=== PATIENT | female | born 1950 | race Caucasian/White ===

== ENCOUNTER → 2019-12-20 14:56 | Outpatient (BNVA) | payer MEDICARE, OTHER, SELFPAY | PROVIDERS: Family Provider Internal Medicine; PCP Internal Medicine; Visit Provider Specialist | DX: M25.561 Pain in right knee (principal) | CPT/HCPCS: 73560; 73565 ==

== ENCOUNTER 2019-12-27 09:29 | Outpatient (CLI) | payer MEDICARE, OTHER, SELFPAY ==
--- NOTE | 2019-12-27 09:35 | MM_ITS ---
WS: [id number] BILATERAL DIGITAL SCREENING MAMMOGRAPHY WITH CAD CLINICAL INFORMATION: SCREENING HISTORY: Screening mammogram. No current complaints. COMPARISON: November 17, 2018 TECHNIQUE: Bilateral CC and MLO views. FINDINGS: Scattered fibroglandular densities bilaterally. No suspicious focal mass, asymmetry, calcifications, or architectural distortion. No evidence of malignancy. MM/[place] [id number] IMPRESSION: BI-RADS: 1-Negative FOLLOW UP: 1 Year Follow-up Recommend return to annual screening mammography.
== END 2019-12-27 09:30 | disposition home or self-care (01) ==
LOC: RADSHAW 09:34
PROVIDERS: PCP Internal Medicine; Visit Provider Internal Medicine
DX: Z12.31 Encounter for screening mammogram for malignant neoplasm of breast (principal)
CPT/HCPCS: 77067

== ENCOUNTER 2020-06-17 13:16 | Outpatient (CLI) | payer MEDICARE, OTHER, SELFPAY ==
--- NOTE | 2020-06-17 13:37 | XR_ITS ---
WS: [id number] Exam: XR lumbar spine 2-3V* [id number] Date/Time of Exam: 06/17/2020 1:37 PM Reason For Exam: BACK PAIN W/RADICULOPATHY Comparison 05/09/2018. There is interbody fusion of the spine from L2 to L4 with pedicle screws and posterior rods. Decompre ssion laminectomy at these levels. The fusion is ossified and stable in appearance. No sign of hardwa re failure. There is mild anterolisthesis of L3 on L4 and L2 on L3. Degenerative disc changes at all levels. Facet DJD at all levels. Levoscoliosis. Osteopenia. XR/XR lumbar spine 2-3V* [id number] IMPRESSION: 1. Interbody fusion from L2 to L4 which is ossified. No sign of hardware failur e. 2. No acute fracture. 3. Advanced degenerative disc changes and facet DJD at all levels. Levoscoliosi s. 4. Mild degenerative anterolisthesis of L2 on L3 and L3 on L4.
== END 2020-06-17 13:17 | disposition home or self-care (01) ==
PROVIDERS: PCP Internal Medicine; Visit Provider Internal Medicine
DX: M54.10 Radiculopathy, site unspecified (principal); M54.9 Dorsalgia, unspecified; Z98.1 Arthrodesis status; M47.896 Other spondylosis, lumbar region; M85.88 Other specified disorders of bone density and structure, other site; M41.80 Other forms of scoliosis, site unspecified
CPT/HCPCS: 72100

== ENCOUNTER 2020-07-09 09:14 | Outpatient (CLI) | payer MEDICARE, OTHER, SELFPAY ==
--- NOTE | 2020-07-09 09:30 | MR_ITS ---
WS: [id number] MRI LUMBAR SPINE NONCONTRAST HISTORY: M51.36 - Other intervertebral disc degeneration, lumbar region COMPARISON: 02/17/2018 TECHNIQUE: Sagittal and axial multisequence imaging is submitted. Thoracolumbar scoliosis with marked increase in the thoracic kyphosis. No cord compression. Mild curvature the lumbar spine to the LEFT. Prior posterior fusion hardware extends from L2 to L4. L 3 anterolisthesis by 7.4 mm. Moderate disc space narrowing throughout the entire lumbar spine. Small amount of reactive marrow eric ma at L2 and L3. No fractures are identified. Conus terminates normally at L1. L1-L2: New since the prior examination is an extruded disc extending cephalad from the disc level to the LEFT of midline. There is encroachment along the LEFT lateral thecal sac into the lateral recess. There is mild deformity of the LEFT lateral thecal sac with stenosis, associated marked facet and li gamentum flavum hypertrophy at this level. Fluid in the facet joints. There is moderate central and b ilateral foraminal stenosis which has progressed since the prior studies. Extruded disc is causing ad ditional deformity of the LEFT lateral thecal sac behind the L1 vertebral body. L2-L3: Large posterior laminectomy defect. No severe stenosis. L3-L4: Large posterior laminectomy defects. Thecal sac is being deformed with mild encroachment of th e RIGHT subarticular recess. Mild RIGHT foraminal stenosis. L4-L5: Bilateral facet joint arthritis, LEFT greater than RIGHT. No central stenosis. Mild LEFT kimberley inal narrowing. L5-S1: Mild annular disc bulging and osteophytic ridging. Mild narrowing of the foramen. MR/MR lumbar spine wo con* [id number] IMPRESSION: 1. Patient is status post posterior lumbar fusion from L2 to L4 with large jaquez inectomy defects at L2-3 and L3-4. 2. New moderate size extruded disc at L1-2 extend cephalad into the LEFT later al recess. There are additional degenerative changes of facet joint arthritis a nd disc disease at the L1-2 level resulting in moderate central and bilateral f oraminal stenosis. Additional encroachment by the extruded disc extending into the LEFT superior articular recess. 3. Mild RIGHT foraminal stenosis at L3-4 and LEFT at L4-5.
== END 2020-07-09 09:15 | disposition home or self-care (01) ==
LOC: RADSHAW 09:18
PROVIDERS: PCP Internal Medicine; Visit Provider Orthopaedic Surgery
DX: M51.36 Other intervertebral disc degeneration, lumbar region (principal); M48.061 Spinal stenosis, lumbar region without neurogenic claudication; M51.26 Other intervertebral disc displacement, lumbar region
CPT/HCPCS: 72148

== ENCOUNTER → 2020-08-08 10:05 | Outpatient (BNVA) | payer MEDICARE, OTHER, SELFPAY | PROVIDERS: PCP Internal Medicine; Visit Provider Orthopaedic Surgery | DX: Z01.812 Encounter for preprocedural laboratory examination (principal) | CPT/HCPCS: 87635 ==

== ENCOUNTER 2020-08-12 15:43 | Inpatient (IN) | payer MEDICARE, OTHER, SELFPAY ==
[2020-08-08 10:37] VITALS: BMI 28.8
--- NOTE | 2020-08-08 10:47 | ECG_ITS ---
[facility] Test Date: 2020-08-08 Pat Name: Inna Mohr Department: Room: Gender: Female Podiatrist Orthopedic: : 1950 Requested By: Beatrice Reece Order Number: [id number] Reading MD: NANCI NIETO Measurements Intervals [place] Rate: 104 P: 58 MA: 155 QRS: 48 QRSD: 86 T: 23 QT: 327 QTc: 432 Interpretive Statements SINUS TACHYCARDIA NONSPECIFIC T-WAVE ABNORMALITY ABNORMAL RHYTHM ECG Compared to ECG 03/25/2018 09:47:37 T-wave abnormality now present Sinus rhythm no longer present Sinus arrhythmia no longer present Electronically Signed On 08-08-2020 18:19:36 IP COUNSEL by NANCI NIETO [id number]
--- NOTE | 2020-08-08 11:08 | ANES.PREANE2 ---
Pre-Anesthetic Assessment Pre-Anesthetic Assessment: Height/Weight: Height 1.73 m Weight 86.183 kg Preop Diagnosis: back pain Proposed Procedure: Operation Date: 08/12/20 09:55 Proposed Procedures p L2 ?S1 PSF lumbar pelvic fixation revision L3/4 decompression PLIF L4/5 L5/S1 92850,45744,18197,26649,40745,11013,30794, 08832, 28279, 27502, 73508, 38022, M48.061(Not Applicable) - Marcello Wesley, DO Familial anesthetic complications: PONV - scopolamine patch morning of surgery Social: Social History: No alcohol and No tobacco Exam: Pre-Anes Outpt Exam: alert, oriented x 3, clear to auscultation bilaterally and regular rate & rhythm Airway: Cervical ROM: WNL MP: 2 Dentition: False Pulmonary: Pulmonary: COPD and CLEMENTE (CLEMENTE on extreme exertion - will use her inaler) CV/HEM: CV/HEM: HTN GI: GI: GERD Metabolic: Metabolic: DM and Hyperlipidemia Musc/skel: Musc/skel: Lower Back Pain Anesthetic Plan: ASA status: 3 Anesthesia: General Risk of > 500 ml blood loss (7ml/kg in children): Yes, adequate IV access and fluids planned PFSH Anesthesia PFSH: Medical History Accelerated essential hypertension Diabetes Gastroesophageal reflux High cholesterol History of revision of total replacement of left knee joint Surgical History H/O: hysterectomy History of back surgery History of carpal tunnel surgery of left wrist History of carpal tunnel surgery of right wrist History of total left knee replacement History of total right knee replacement Hx of repair of rotator cuff Family History Mother Diabetes Hypertension CAD (coronary artery disease) Grandmother Stroke Social History Smoking and tobacco status: never smoked Alcohol intake: never Data Anesthesia Cardiac Studies: No Data to Display
[2020-08-08 11:41] LABS: Anion Gap 16.3 (5-19); Blood Urea Nitrogen 16 mg/dL (8-23); Calcium 10.1 mg/dL (8.5-10.5); Carbon Dioxide 23 mmol/L (22-29); Chloride 104 mmol/L (98-107); Glomerular Filtration Rate 122.3 mL/min (90-130); Glucose 138 mg/dL (65-115); Osmolality Calculated 291 mOsm/kg (285-295); Potassium 4.3 mmol/L (3.5-5.1); Sodium 139 mmol/L (136-145)
[2020-08-09 19:45] VITALS: BP 99/66; PULSE 105; RESP 15; TEMP 36.5; O2SAT 98
[2020-08-10 22:45] VITALS: BP 115/70; PULSE 107; RESP 18; TEMP 36.7; O2SAT 99
[2020-08-12] VITALS (29 sets, daily range): BP systolic 83–147; BP diastolic 46–87; PULSE 98–130; RESP 12–22; TEMP 36.4–37.2; O2SAT 95–100
--- NOTE | 2020-08-12 | XR_ITS ---
WS: [id number] Exam: XR lumbar spine 2-3V* [id number] Date/Time of Exam: 08/12/2020 12:00 AM Reason For Exam: L2-S1 PSF lumbar pelvic fixation revision l3/l4 Comparison 03/28/2018. AP and lateral C-arm images of the lumbar and upper sacral spine are submitted for evaluation. There are Ramon rods and pedicle screws extending from T11 to S1. Screws also bridge both sacroi liac joints. There are disc spacers at L4-5 and L5-S1. Dextroscoliosis. No sign of the hardware failu re or obvious malposition. Multilevel laminectomy from L3 to S1.
[2020-08-12 06:15] LABS: Glucose Point of Care 142 mg/dL (70-110)
[2020-08-12] MEDS: sodium chloride 0.9% 1,000 ML 30 ML IV (06:16)
[2020-08-12] MEDS: scopolamine 1.5 Patch 1 PATCH TRANSDERMA (06:16)
--- NOTE | 2020-08-12 06:54 | P.ANESUD_ITS ---
Pre-Anesthetic Update Pre-Anesthetic Assessment: Date of Surgery/Procedure: 08/12/20 Preop Joycelyn gnosis: Lumbar stenosis, flat back syndrome Proposed Procedure: Operation Date: 08/12/20 08:30 Proposed Procedures p L2 ?S1 PSF lumbar pelvic fixation revision L3/4 decompression PLIF L4/5 L5/S1 10512,50811,70317,43483,99457,37761,76829, 49551, 24272, 22833, 96781, 61235, M48.061(Not Applicable) - Marcello Wesley, DO Any changes to Pre-Anesthetic Assessment?: No Last Intake: Intake Last Liquid Date 08/11/20 Last Liquid Time 23:00 Last Solid Date 08/11/20 Last Solid Time 18:00 Labs Last 48hrs: Laboratory Results - last 48 hr 08/12/20 06:12 POC Glucose 142 H Vitals: Temperature 97.5 F L 08/12/20 06:03 Temperature Source Temporal Artery S can 08/12/20 06:03 Pulse Rate 98 08/12/20 06:03 Pulse Rhythm 08/12/20 06:03 Pulse Strength 3+ Normal 08/12/20 06:03 Respiratory Rate 18 08/12/20 06:03 Blood Pressure 147/87 08/12/20 06:03 Blood Pressure Anita n 107 08/12/20 06:03 Pulse Oximetry 97 08/12/20 06:03 Oxygen Delivery Me thod 08/12/20 06:03 Exam: Pre-Anes Outpt Exam: alert, oriented x 3, clear to auscultation bilaterally and regular rate & rhythm Cardiac Studies: No Data to Display
--- NOTE | 2020-08-12 07:02 | W.PM.OPSUD ---
Surgery/Procedure H&P Update DATE OF PROCEDURE: August 12, 2020 DATE H&P PERFORMED: 07/16/20 H&P UPDATE INFORMATION: I have reviewed H&P completed within last 30 days, I have examined patient prior to procedure and No changes to prior documentation PREOP DIAGNOSIS: Lumbar stenosis, flat back syndrome PLANNED PROCEDURE: Operation Date: 08/12/20 08:30 Proposed Procedures p L2 ?S1 PSF lumbar pelvic fixation revision L3/4 decompression PLIF L4/5 L5/S1 61300,64839,44912,09610,21497,06711,72406, 95278, 62798, 41789, 23240, 69651, M48.061(Not Applicable) - Marcello Wesley, DO
[2020-08-12] MEDS: heparin, porcine 1,000 unit/mL INJ 10 mL 10000 UNIT IRRIGATION (10:00)
[2020-08-12] MEDS: vancomycin 1,000 MG SDV 1000 MG XX (10:01)
[2020-08-12 12:09] LABS: Hematocrit 33.8 % (37.0-47.0)
[2020-08-12] MEDS: thrombin 5,000 unit SDV 5000 UNIT XX (13:29)
[2020-08-12 14:13] LABS: Hematocrit 29.1 % (37.0-47.0); Mean Corpuscular HGB Conc 30.9 g/dL (30.0-36.0); Mean Corpuscular Hemoglobin 28.7 pg (28.0-34.0); Mean Corpuscular Volume 92.7 fL (81-99); Mean Platelet Volume 8.8 fL (7.4-10.4); Platelet Count 236 10^3/cmm (130-400); Red Blood Count 3.14 10^6/uL (4.1-5.3); Red Cell Distribution Width 14.3 % (12.1-15.1); White Blood Count 22.7 10^3/uL (4.0-10.0)
--- NOTE | 2020-08-12 14:33 | SCC_ITS ---
Procedure Done: 1. E96-Dsdjrm instrumentation (8 levels plus attachment to the pelvis) 2. T11- pelvis instrumentation 3. L4/5 interbody fusion with posterolateral fusion 4. L4/5 Cage 5. L5/S1 interbody fusion with posterolateral fusion 6. L5/S1 Cage 7. Revison Laminecomy L3/4 with bilateral partial facetectomies 8. Removal of deep hardware from the spine 9. use of autograph from same incision 10. allograft 11. Bone marrow aspirate from iliac crest through sepaarate incision in fascia 188.6 seconds of fluoroscopic guidance, for a cumulative dose of 110.33 mGy, was provided to Dr. Wesley - by the radiology department. C-arm images of the lumbar were saved for the patient's permanent record. ANJELICA
[2020-08-12 14:46] LABS: Absolute Segmented Neutrophil 18.2 10/cmm (1.6-7.1); Band Neutrophils Absolute 1.6 10^3/cmm (0.0-1.2); Basophils Absolute 0.2 10^3/cmm (0.0-0.2); Lymphocytes 12 %; Segmented Neutrophils 80 %; Total Cells Counted 100 (0-100)
[2020-08-12 14:47] LABS: Absolute Neutrophil 19.7 10^3/cmm (1.4-6.5); Eosinophils 0 %; Platelet Estimate Normal (Normal)
--- NOTE | 2020-08-12 15:47 | PM.OP ---
Operative Report Date of procedure: August 12, 2020 Pre-op Diagnosis: Lumbar stenosis, flat back syndrome Post-op diagnosis: same Procedure Done: 1. Y68-Hlhrgc instrumentation (8 levels plus attachment to the pelvis) 2. T11- pelvis instrumentation 3. L4/5 interbody fusion with posterolateral fusion 4. L4/5 Cage 5. L5/S1 interbody fusion with posterolateral fusion 6. L5/S1 Cage 7. Revison Laminecomy L3/4 with bilateral partial facetectomies 8. Removal of deep hardware from the spine 9. use of autograph from same incision 10. allograft 11. Bone marrow aspirate from iliac crest through sepaarate incision in fascia Surgeon: Marcello Wesley Anesthesia: General Estimated blood loss (mL): 2,000 IV fluids (mL): 3,500 Urine output (mL): 550 Condition: stable Disposition: PACU Procedure: Patient is brought to the operative suite. After undergoing anesthesia, the patient had neuro monitoring attached. Patient was then placed in the prone position on the Kimani table. All areas of impingement were well-padded. Patient was then prepped and draped in the normal sterile fashion. Skin incision was then made over the T11-S1 disc space. Subperiosteal dissection was made out to the transverse processes of T11- S2 and out over the sacral ala and pelvis. Once the exposure was complete attention was then brought to placing the pedicle screws. Prior to placing the pedicle screws the [employer] bone marrow aspirate kit was used to aspirate bone marrow aspirate. This was done by making an incision in the fascia on the right side. using the sharp probe to open up the bone. Aspiration was performed and then the blunt probe was then used to dissect down to through the bone tunnel. An aspirating well drawn back a millimeter approximately 20 cc of bone marrow aspirate was used. Ad mixed with the allograft and autograft bone that will be used. Prior to placing new pedicle screws old hardware was removed. This was done by dissecting out the screw heads of the screws as well as the cross-link. Symptoms were removed first. Followed by the end caps. Rods were then removed bilaterally. And then the screws were backed out. The L4 pedicle screw on the left was lateral. Gearshift was used to redirect the screw. And these screw holes were all filled with 6 5 Froid screws. This was done at L2-L3 and L4 bilaterally and again the screw on the left was redirected. The remaining screws were done with the following technique: the technique for placing the pedicle screws was to use a drill followed by the gearshift probe. Followed by the ball probe to feel the superior inferior medial lateral loredo of the pedicles. Then placement of the screws. Was done at each pedicle. Screws were placed at T11 bilaterally and s1 bilaterally. Iliac screws were placed into the pelvis. This was done with a sacral ala iliac approach. The gearshift was used initially and passed through the column in the iliac crest. This was confirmed under C-arm guidance using the teardrop view. As well as inlet outlet views to confirm that the screw was in bone. These were 80 x 9.5 screws. The instrumentation was from T11 down to S1 with iliac screws placed into the pelvis. Next attention was brought to performing the laminectomy of L4. This was done using the high-speed bur Kerrisons and curettes. Once the lamina was removed and then attention was brought to performing a partial facetectomy on the contralateral side. This was done again using the high-speed bur curettes and Kerrisons. The ligamentum flavum was taken down bilaterally from L4 to L5. Attention was then brought to the facet on the ipsilateral side. The facet was taken down. The L5 nerve was decompressed as it passed around the L5 pedicle. The laminectomy was done for purposes of decompressing the nerve as well as placement of the cage. The L4 nerve was identified as it traversed through the L4/5 foramen. The thecal sac was identified and retracted. The L4/5 disc space was identified. Using a knife the disc space was opened. And then sequential arben were placed. The first shaver was a 6 and the last shaver was a 10. Using a pituitary and down going curette the endplates were scraped and disc material was removed from the space. Once adequate decompression of the disc base was felt to be had. Osteoamp sponge was packed into the anterior aspect of the disc base. Then a size 10 cage from [employer] was placed after packing osteoamp into the cage. While placing the cage the thecal sac and L5 nerve was protected. C arm was used to ensure that the cages placed in the appropriate position. Next attention was brought to performing the laminectomy of L5. This was done using the high-speed bur Kerrisons and curettes. Once the lamina was removed and then attention was brought to performing a partial facetectomy on the contralateral side. This was done again using the high-speed bur curettes and Kerrisons. The ligamentum flavum was taken down bilaterally from L5 to S1. Attention was then brought to the facet on the ipsilateral side. The facet was taken down. The S1 nerve was decompressed as it passed around the S1 pedicle. The laminectomy was done for purposes of decompressing the nerve as well as placement of the cage. The L5 nerve was identified as it traversed through the L5/S1 foramen. The thecal sac was identified and retracted. The L5/S1 disc space was identified. Using a knife the disc space was opened. And then sequential arben were placed. The first shaver was a 6 and the last shaver was a 8. Using a pituitary and down going curette the endplates were scraped and disc material was removed from the space. Once adequate decompression of the disc base was felt to be had. Osteoamp sponge was packed into the anterior aspect of the disc base. Then a size 8 cage from [employer] was placed after packing osteoamp into the cage. While placing the cage the thecal sac and S1 nerve was protected. C arm was used to ensure that the cages placed in the appropriate position. Attention was then brought to attaching the rods to the screws placed in the T11-S1 and Pelvic screws bilaterally. Caps were torqued into position. Locking the construct in place. Wound was copiously irrigated and then attention was brought to decorticating the facets and transverse processes laterally [id number]. Bone that was taken down from the lamina was used along with osteoamp fibers and sponges were packed into the lateral gutters along the facet joints. This was done bilaterally. Wound was then closed in a layered fashion starting with the thoracolumbar fascia. 0-stratafix was used the sub cutaneous tissue was closed with 2-0 stratafix and skin with 4-0 monocryl. Glue was then used to seal the skin and a steril dressing was applied. Patient was then placed in the supine position. The endotracheal tube was removed and patient was transferred to the PACU in stable condition. The T11 and 12 and L1 levels were discussed with the patient preop. Because she feels like she is pitching forward I want to confirm that I can get her kyphotic deformity corrected and I added the top 3 levels in order to facilitate the correction of the deformity along with the cages that were used to help correct her deformity adding 6 degrees or correction through the disc bases at both L5-S1 and L4-5. The L3-4 decompression was to help facilitate improvement of the anterior thigh pain.
--- NOTE | 2020-08-12 16:13 | SUR.PHASEI ---
1602- ORAL AIRWAY REMOVED, SAT 99% WITH SIMPLE MASK AT 6LPM
--- NOTE | 2020-08-12 16:36 | ANE.PACU2 ---
Inpatient post-anesthesia follow up: Airway intact: Yes Vital signs: Temperature 98.5 F Pulse Rate 119 Respiratory Rate 16 Blood Pressure 114/52 Pulse Oximetry 95 Oxygen Delivery Me thod Nasal Cannula Oxygen Flow Rate 2 Fraction of Inspir ed Oxygen Hydration adequate: No Nausea and vomiting: No Pain level: 2 Additional Comments: Sedated in PACU, follows commands. Probably slightly dehydrated.
--- NOTE | 2020-08-12 16:40 | SUR.PHASEI ---
1627- RIGHT RADIAL ARTERIAL LINE OUT PER PROTOCOL
[2020-08-12] MEDS: albumin 12.5 GM/250 ML VIAL IV (16:55)
[2020-08-12] MEDS: ondansetron 2 mg/ML SDV 2 mL 4 MG IVP ×3 (17:00→21:58)
[2020-08-12 17:02] LABS: Hematocrit 21.8 % (37.0-47.0); Hemoglobin 6.6 g/dL (11.5-15.3)
[2020-08-12] MEDS: sodium chloride 0.9% 1,000 ML 500 ML IV (17:21)
--- NOTE | 2020-08-12 17:51 | SUR.PHASEI ---
1745- NOTIFIED DR LYNCH, HOSPITALIST OF PATIENT CURRENT STATUS. SHE REPORTS SHE WILL BE SEEING PATIENT FOR FURTHER ASSESSMENT.
--- NOTE | 2020-08-12 18:34 | P.CONIM_ITS ---
Providers/Reason For Consult Consulting Physican/Specialty*: Itzel Feldman MD/ Hospitalist Reason for Consult*: management of medical comorbidities Attending Physician: Marcello Wesley DO Primary Care Provider: Sydnie Gooden MD History of Present Illness History of Present Illness Inna Mohr is a 69 year old female with a past medical history of hypertension, hyperlipidemia, diabetes mellitus on Metformin, that underwent T11 to pelvis instrumentation today for lumbar stenosis and flatback syndrome. Estimated blood loss in the OR about 2 L. Medicine service has been consulted to manage comorbidities. Patient was seen after being brought to the floors from the PACU. Blood pressure upon arrival was noted to be 83/46 with concomitant tachycardia of heart rate up to 110/min. She had previously received 3.5 L fluid during the OR and subsequently 2 L of fluid and albumin in the PACU for soft blood pressures. Hemoglobin trend during the day has been from 11 at 11:56 AM this morning to 9 at 2 PM to 6.6 at 5 PM this evening. Currently tachycardic between 110 to 125 bpm. Saturating 98% on 2 L/min nasal cannula. White blood cell count at 22.7 postoperatively. Afebrile currently. Patient is currently awake alert and oriented, mildly drowsy however has just received opiates , appears pale. Review of Systems General: Reports: 10 or more systems reviewed and unremarkable except in HPI and below Const: Denies: fever(s), chills or body aches Eyes: Denies: change in vision, blurry vision or photophobia ENMT: Reports: hoarseness; Denies: throat pain, enlarged tonsils, odynophagia or nasal congestion Card: Denies: chest pain, palpitations, irregular heart rhythm, edema, swelling of feet/ankles, lightheadedness, pre-syncope, dyspnea on exertion or orthopnea Resp: Denies: dyspnea, productive cough, non-productive cough, wheezing, stridor, pain on inspiration, change in phlegm color, hemoptysis or chest congestion GI: Denies: abdominal pain, nausea, vomiting, hematemesis, coffee ground emesis, dysphagia, heartburn, diarrhea, constipation, GI cramping, change in stool character, hematochezia or melena : Denies: flank pain, difficulty voiding, dysuria, urinary frequency, urinary urgency, urinary hesitancy or hematuria Musc: Denies: neck pain, back pain, extremity pain, joint swelling, joint warmth or deformity Neuro: Denies: headache(s), numbness in extremities, weakness in extremities, sensory changes, difficulty walking, frequent falls, dizziness, vertigo, behavioral changes, Slurred speech present or seizure-like activity Psych: Denies: anxiety, depression, suicidal ideation or homicidal ideation Endo: Denies: polyuria, polydipsia, tired all the time, cold intolerance or hot flashes Ronak/Lymph: Denies: easy bruising or easy bleeding Meds/Allergies Home Medications and Allergies Home Medications Medication Instructions Recorded Confirmed Last Taken Type aspirin 81 mg tablet,delayed 81 mg PO DAILY 12/20/19 08/08/20 08/05/20 History release atorvastatin 40 mg tablet 40 mg PO DAILY 12/20/19 08/12/20 08/11/20 History jjlrwhnwwt-ewnojnnagjv-xqcyfwerflpkvp,mix 500 ml PO DAILY 12/20/19 08/12/20 08/11/20 History 500 mg-400 mg/15 mL oral liq lisinopril 40 mg tablet 40 mg PO DAILY 12/20/19 08/12/20 08/12/20 History meloxicam 15 mg tablet 15 mg PO DAILY 12/20/19 08/12/20 08/11/20 History metformin 500 mg tablet 500 mg PO DAILY 12/20/19 08/12/20 08/11/20 History pantoprazole 20 mg tablet,delayed 20 mg PO DAILY 12/20/19 08/08/20 Unknown History release gabapentin 100 mg PO DAILY 08/12/20 08/12/20 08/11/20 History Allergies Allergy/AdvReac Type Severity Reaction Status Date / Time No Known Allergies Allergy Verified 08/08/20 10:34 Current Medications Current Medications Generic Name Dose Route Start Last Admin Trade Name Freq PRN Reason Stop Dose Admin Sodium Chloride 1,000 mls @ 30 mls/hr 08/12/20 06:00 08/12/20 17:21 Sodium Chloride 0.9% IV 08/13/20 05:59 500 mls/hr .Q24H SANDRA Administration PFSH Acute PFSH: Medical History Accelerated essential hypertension Diabetes Gastroesophageal reflux High cholesterol History of revision of total replacement of left knee joint Surgical History H/O: hysterectomy History of back surgery History of carpal tunnel surgery of left wrist History of carpal tunnel surgery of right wrist History of total left knee replacement History of total right knee replacement Hx of repair of rotator cuff Family History Mother Diabetes Hypertension CAD (coronary artery disease) Grandmother Stroke Social History Smoking and tobacco status: never smoked Alcohol intake: never Vitals/I&O/Wt Last Vital Signs Temp 98.6 F 08/12/20 18:15 Pulse 110 H 08/12/20 18:15 Resp 15 08/12/20 18:15 BP 115/70 08/12/20 18:15 Pulse Ox 98 08/12/20 18:15 08/12/20 08/12/20 08/12/20 06:59 14:59 22:59 Intake Total 1100 / 1100 2800 / 3900 Output Total 3200 / 3200 Balance 1100 / 1100 -400 / 700 Physical Exam Narrative: EXAM NARRATIVE: GEN: Awake, alert and oriented, no acute distress heent: pallor + CVS: S1S2 N RS: CTA B/L Abd: Soft, nt/nd , bs+ SUPPLY ASSISTANT: no focal neuro deficits ext: Suction drain noted line near head and, with blood. Patient not moved for examination at this time as just post op Urinary Catheter Management^: F: Cath Placed During This Visit: yes Urinary Catheter Date of Insertion: 08/12/20 Urinary Catheter Time of Insertion: 09:30 A&P Assessment and plan (1) Lumbar stenosis with neurogenic claudication: postr op state today Status: Acute (2) Anemia due to blood loss, acute: likely 2/2 acute blood loss tachycardic, hypotensive, hemodynamic instability Move to ICU for close monitoring overnight EBL 2L in OR Hold ASA for now Hold lisinopril transfuse 2 unit PRBC , recheck HB bolus 1L fluid now, goal MAP >65 mmhg , add pressors if MAP below 65 Iron BID/MV Status: Acute Consult Attestations Medical Necessity Statement: acute blood loss anemia with hemodynamic compromise, needs blood tranfusion, close monitoring in the ICU Coding Level of Care Code Acute Senior Accounting Clerk for Chg Fwd Diagnoses Lumbar stenosis with neurogenic claudication M48.062 Anemia due to blood loss, acute D62
[2020-08-12] MEDS: HYDROcodone-acetaminophen 5-325 mg Tablet PO (21:54)
[2020-08-12] MEDS: docusate sodium 100 mg Capsule PO (21:54)
[2020-08-13] VITALS (15 sets, daily range): BP systolic 104–144; BP diastolic 61–81; PULSE 90–122; RESP 16–18; TEMP 35.6–37.2; O2SAT 92–98
[2020-08-13] MEDS: sodium chloride 0.9% (100 ml) 100 ML 125 ML (00:12)
--- NOTE | 2020-08-13 01:07 | PC.NURSE ---
Low BP: At shift change it was reported that the pt had been hypotensive after surgery and had orders to transfer to ICU. IVF bolus had finished and the first unit of blood had been started. An ICU bed was not available at this time so monitored BP closely while waiting for a patient to be moved out of ICU for a bed to come available. At 2018 a rapid response was called on another patient who ended up being transferred to ICU taking the last ICU bed. Pt BP slowly yamilka and stabilized with the administration of blood. [facility] notified and agreed to leave the pt on med surg with continued monitoring of BP.
[2020-08-13] MEDS: HYDROcodone-acetaminophen 5-325 mg Tablet PO (02:12)
[2020-08-13] MEDS: lactated ringers 1,000 ML 90 ML IV ×2 (02:14→13:26)
[2020-08-13] MEDS: enoxaparin 40 mg/0.4 mL Syringe SUBCUT (05:46)
[2020-08-13 06:09] LABS: Basophils % 0.2 %; Eosinophils % 0.1 %; Hemoglobin 8.9 g/dL (11.5-15.3); Lymphocytes # 2.3 10^3/uL (0.8-4.8); Lymphocytes % 12.9 %; Mean Corpuscular HGB Conc 31.8 g/dL (30.0-36.0); Mean Corpuscular Hemoglobin 28.4 pg (28.0-34.0); Mean Corpuscular Volume 89.5 fL (81-99); Mean Platelet Volume 9.7 fL (7.4-10.4); Monocytes # 1.6 10^3/uL (0.2-0.9); Monocytes % 9.3 %; Neutrophils # 13.54 10^3/uL (1.8-7.7); Neutrophils % 76.5 %; Nucleated Red Blood Cells % 0.1 %; Platelet Count 135 10^3/cmm (130-400); Red Blood Count 3.13 10^6/uL (4.1-5.3); Red Cell Distribution Width 16.8 % (12.1-15.1); White Blood Count 17.7 10^3/uL (4.0-10.0)
[2020-08-13 06:35] LABS: Anion Gap 13.9 (5-19); Blood Urea Nitrogen 28 mg/dL (8-23); Calcium 7.4 mg/dL (8.5-10.5); Carbon Dioxide 20 mmol/L (22-29); Chloride 110 mmol/L (98-107); Glucose 142 mg/dL (65-115); Osmolality Calculated 296 mOsm/kg (285-295); Potassium 4.9 mmol/L (3.5-5.1); Sodium 139 mmol/L (136-145)
[2020-08-13] MEDS: ondansetron 2 mg/ML SDV 2 mL 4 MG IVP ×2 (06:55→12:23)
[2020-08-13] MEDS: acetaminophen 325 mg Tablet 650 MG PO ×2 (06:55→23:05)
[2020-08-13 07:09] LABS: Ferritin 115 ng/mL (15-150); Iron 27 ug/dL (37-145)
--- NOTE | 2020-08-13 07:50 | PC.NURSE ---
Rcvd verbal order from Dr Wesley to HOLD Lovenox and stop Hydrocodone. Order Percocet 5-325mg 1-2 tabs Q4H PRN. Auto Heater Mechanic put orders in.
--- NOTE | 2020-08-13 08:00 | P.PN_ITS ---
Subjective Subjective: Interval history: Patient sitting up in chair this morning. Patient received 2 units of blood her hemoglobin dropped to 6 currently is 8.9. Vitals/I&O/Wt Last Vital Signs Temp 98.0 F 08/13/20 04:50 Pulse 119 H 08/13/20 04:50 Resp 18 08/13/20 04:50 BP 104/65 08/13/20 04:50 Pulse Ox 93 08/13/20 04:50 08/12/20 08/13/20 08/13/20 22:59 06:59 14:59 Intake Total 3150 / 4250 400 / 4650 1150 / 1150 Output Total 3400 / 3400 2005 / 5405 Balance -250 / 850 -1605 / -755 1150 / 1150 Physical Exam Narrative: EXAM NARRATIVE: Patient up in chair currently feeling nauseous. Urinary Catheter Management^: F: Cath Placed During This Visit: yes Reason for Continuing Indwelling Catheter: Perioperative Use in Selected Surgeries Urinary Catheter Date of Insertion: 08/12/20 Urinary Catheter Time of Insertion: 09:30 Data : 08/13/20 05:16 08/13/20 05:16 A&P Additional A&P Information Postop day #1 T11 to pelvis posterior spine fusion. At this point I will hold her Lovenox. Okay to get up with physical therapy. Attestations Medical Necessity Statement*: monitor Hb Coding Level of Care Code Acute Will Call Order Clerk for Rafia Anguiano
[2020-08-13] MEDS: docusate sodium 100 mg Capsule PO ×2 (09:30→17:23)
[2020-08-13] MEDS: metformin 500 mg Tablet PO (09:30)
[2020-08-13] MEDS: aspirin 81 mg EC Tablet PO (09:30)
[2020-08-13] MEDS: pantoprazole DR 40 mg Tablet PO (09:30)
[2020-08-13] MEDS: multivitamin therapeutic Tablet 1 TAB PO (09:30)
[2020-08-13] MEDS: iron polysaccharide complex 150 mg Capsule PO ×2 (09:30→17:23)
[2020-08-13] MEDS: meloxicam 7.5 mg tablet 15 MG PO (09:32)
[2020-08-13] MEDS: gabapentin 100 mg Capsule PO (09:32)
[2020-08-13] MEDS: atorvastatin 40 mg Tablet PO (09:32)
[2020-08-13] MEDS: lisinopril 20 mg Tablet 40 MG PO (09:32)
--- NOTE | 2020-08-13 10:19 | PC.NURSE ---
Rcvd verbal order from Dr Feldman for H&H at 1400 today. automotive service writer put order in.
[2020-08-13] MEDS: ketorolac 30 mg/mL INJ IVP (11:04)
[2020-08-13 13:29] LABS: Hematocrit 27.7 % (37.0-47.0); Hemoglobin 8.9 g/dL (11.5-15.3)
[2020-08-13 14:42] LABS: Hematocrit 27.3 % (37.0-47.0); Hemoglobin 8.6 g/dL (11.5-15.3)
--- NOTE | 2020-08-13 16:15 | PM.PN ---
Subjective Subjective: Interval history: Remained on med/surg overnigght as vitals had improved. Currently BP stable, Hb this am at 8.9 after 2 units transfusion, leukocytosis at 17, improving, afebrile, drain ouput 900 cc, cr 1, U/o 2500 ml Medications: Reviewed: Yes Vitals/I&O/Wt Last Vital Signs Temp 96.9 F L 08/13/20 15:17 Pulse 108 H 08/13/20 15:17 Resp 17 08/13/20 15:17 BP 104/61 08/13/20 15:17 Pulse Ox 93 08/13/20 15:17 08/13/20 08/13/20 08/13/20 06:59 14:59 22:59 Intake Total 400 / 4650 2320 / 2320 Output Total 2004 550 / 550 Balance -1605 / -755 1770 / 1770 Physical Exam Narrative: EXAM NARRATIVE: GEN: Awake, alert and oriented, no acute distress CVS: S1S2 N RS: CTA B/L Abd: Soft, nt/nd , bs+ HABILITATION SPECIALIST: no focal neuro deficits Urinary Catheter Management^: F: Cath Placed During This Visit: yes Reason for Continuing Indwelling Catheter: Perioperative Use in Selected Surgeries Urinary Catheter Date of Insertion: 08/12/20 Urinary Catheter Time of Insertion: 09:30 Data : 08/13/20 14:20 08/13/20 05:16 A&P Assessment and plan (1) Lumbar stenosis with neurogenic claudication: post op day 1 Status: Acute (2) Anemia due to blood loss, acute: likely 2/2 acute blood loss Hold aspirin, per review of MAR patient did receive ASA today as hold orders reflected under transfer orders but patient eventually did not have change of location. Hold lisinopril, receivd today similarly transfused 2 unit PRBC on 08/12 , rpt Hb improved at 8.9, again stable at 8.2 bolus 1L fluid now, goal MAP >65 mmhg , add pressors if MAP below 65 Iron BID/MV Status: Acute (3) Leukocytosis: likely recative leukocytosis post operatively Status: Acute Attestations Medical Necessity Statement*: per admitting note Coding Level of Care Code Acute Plastic Cnc Machine Operator for [facility] Fwd Diagnoses Lumbar stenosis with neurogenic claudication M48.062 Anemia due to blood loss, acute D62 Leukocytosis D72.829
--- NOTE | 2020-08-13 17:25 | PC.NURSE ---
patient rates pain in back 11/28. patient refuses pain meds at this time and said she wants to try to eat first.
--- NOTE | 2020-08-13 18:12 | PC.NURSE ---
Patient has palomino catheter. Washhouse Hand called Dr Wesley to see if palomino catheter can be removed. Per Dr Wesley, OK to remove palomino catheter. gag writer put order in. Removed palomino catheter.
[2020-08-14] VITALS (10 sets, daily range): BP systolic 100–144; BP diastolic 60–71; PULSE 87–120; RESP 17–19; TEMP 36.6–37.6; O2SAT 92–96
[2020-08-14] MEDS: ondansetron 2 mg/ML SDV 2 mL 4 MG IVP ×2 (02:00→17:51)
[2020-08-14 02:25] LABS: Basophils % 0.2 %; Eosinophils % 0.2 %; Hematocrit 23.5 % (37.0-47.0); Hemoglobin 7.5 g/dL (11.5-15.3); Lymphocytes # 1.7 10^3/uL (0.8-4.8); Lymphocytes % 11.1 %; Mean Corpuscular HGB Conc 31.9 g/dL (30.0-36.0); Mean Corpuscular Hemoglobin 28.5 pg (28.0-34.0); Mean Corpuscular Volume 89.4 fL (81-99); Mean Platelet Volume 9.4 fL (7.4-10.4); Monocytes # 1.3 10^3/uL (0.2-0.9); Monocytes % 8.4 %; Neutrophils % 79.4 %; Nucleated Red Blood Cells % 0 %; Platelet Count 115 10^3/cmm (130-400); Red Blood Count 2.63 10^6/uL (4.1-5.3); Red Cell Distribution Width 16.9 % (12.1-15.1); White Blood Count 15.6 10^3/uL (4.0-10.0)
[2020-08-14] MEDS: lactated ringers 1,000 ML 90 ML IV (02:29)
[2020-08-14 02:40] LABS: Alanine Aminotransferase 20 U/L (0-33); Albumin Level 2.9 g/dL (3.5-5.2); Alkaline Phosphatase 57 IU/L (35-105); Anion Gap 10.5 (5-19); Aspartate Amino Transferase 36 U/L (0-32); Blood Urea Nitrogen 23 mg/dL (8-23); Calcium 8.3 mg/dL (8.5-10.5); Carbon Dioxide 23 mmol/L (22-29); Chloride 108 mmol/L (98-107); Globulin 2.1 g/dL (1.3-4.6); Glomerular Filtration Rate 99.1 mL/min (90-130); Glucose 128 mg/dL (65-115); Osmolality Calculated 289 mOsm/kg (285-295); Potassium 4.5 mmol/L (3.5-5.1); Sodium 137 mmol/L (136-145); Total Bilirubin 0.3 mg/dL (0.15-1.2)
[2020-08-14] MEDS: acetaminophen 325 mg Tablet 650 MG PO ×2 (03:16→13:27)
[2020-08-14] MEDS: ketorolac 30 mg/mL INJ IVP ×2 (03:16→13:27)
[2020-08-14] MEDS: promethazine 25 mg/mL SDV 1 mL 12.5 MG IM (03:38)
--- NOTE | 2020-08-14 07:00 | PM.PN ---
Subjective Subjective: Interval history: Patient states she feels better this morning. Headaches are gone from last night. Having nausea all night. Vitals/I&O/Wt Last Vital Signs Temp 97.8 F 08/14/20 04:15 Pulse 107 H 08/14/20 06:00 Resp 18 08/14/20 04:15 BP 142/68 08/14/20 04:15 Pulse Ox 96 08/14/20 04:15 08/13/20 08/14/20 08/14/20 22:59 06:59 14:59 Intake Total 360 / 2680 1100 / 3780 Output Total 550 / 1100 200 / 1300 Balance -190 / 1580 900 / 2480 Physical Exam Narrative: EXAM NARRATIVE: 5 5 strength bilateral lower extremities sensation intact. Urinary Catheter Management^: F: Cath Placed During This Visit: yes, but has since been removed by the nurse Reason for Continuing Indwelling Catheter: Decision to DC Catheter Urinary Catheter Date of Insertion: 08/12/20 Urinary Catheter Time of Insertion: 09:30 Date Urinary Catheter Removed: 08/13/20 Time Urinary Catheter Discontinued: 18:15 Data : 08/14/20 01:47 08/14/20 01:47 A&P Additional A&P Information Postop day #2 T11 to pelvis Continue to monitor hemoglobin. Up with PT. Attestations Medical Necessity Statement*: monitor HB Coding Level of Care Code Acute Office Support Associate for Rafia Anguiano
[2020-08-14] MEDS: multivitamin therapeutic Tablet 1 TAB PO (08:23)
[2020-08-14] MEDS: iron polysaccharide complex 150 mg Capsule PO (08:23)
[2020-08-14] MEDS: metformin 500 mg Tablet PO (08:23)
[2020-08-14] MEDS: atorvastatin 40 mg Tablet PO (08:23)
[2020-08-14] MEDS: meloxicam 7.5 mg tablet 15 MG PO (08:23)
[2020-08-14] MEDS: gabapentin 100 mg Capsule PO (08:23)
[2020-08-14] MEDS: docusate sodium 100 mg Capsule PO (08:23)
[2020-08-14] MEDS: pantoprazole DR 40 mg Tablet PO (08:24)
[2020-08-14 10:34] LABS: Partial Thromboplastin Time 26.7 SECONDS (23.9-36.7)
--- NOTE | 2020-08-14 13:00 | XR_ITS ---
WS: [id number] Exam: XR chest 1V portable [id number] Date/Time of Exam: 08/14/2020 1:00 PM Reason For Exam: atelactasis Comparison 04/30/2016. The lungs are clear and fully expanded. Normal cardiomediastinal structures and regional bony element s. Monitoring leads superimpose the chest. Hardware partially visualized in the upper lumbar spine. XR/XR chest 1V portable [id number] IMPRESSION: 1. No acute cardiopulmonary finding.
[2020-08-14] MEDS: alum-mag-hydroxide-sime 30 mL UDC PO (15:01)
--- NOTE | 2020-08-14 16:52 | PM.PN ---
Subjective Subjective: Interval history: Hemoglobin 7.5 today. Continues to be tachycardic with heart rate of 120. Sinus rhythm on telemetry. Blood pressure is well controlled at 113/65. T-max 99.8 overnight. Leukocytosis trending down to 15. Medications: Reviewed: Yes Vitals/I&O/Wt Last Vital Signs Temp 98.5 F 08/14/20 15:06 Pulse 120 H 08/14/20 15:06 Resp 19 H 08/14/20 15:06 BP 113/65 08/14/20 15:06 Pulse Ox 96 08/14/20 15:06 08/14/20 08/14/20 08/14/20 06:59 14:59 22:59 Intake Total 1100 / 3780 840 / 840 Output Total 200 / 1300 200 / 200 Balance 900 / 2480 640 / 640 Physical Exam Narrative: EXAM NARRATIVE: GEN: Awake, alert and oriented, no acute distress CVS: S1S2 N RS: CTA B/L Abd: Soft, nt/nd , bs+ DIGITAL BUSINESS ANALYST: no focal neuro deficits Urinary Catheter Management^: F: Cath Placed During This Visit: yes, but has since been removed by the nurse Reason for Continuing Indwelling Catheter: Decision to DC Catheter Urinary Catheter Date of Insertion: 08/12/20 Urinary Catheter Time of Insertion: 09:30 Date Urinary Catheter Removed: 08/13/20 Time Urinary Catheter Discontinued: 18:15 Data : 08/14/20 01:47 08/14/20 01:47 A&P Assessment and plan (1) Lumbar stenosis with neurogenic claudication: post op day 2 Status: Acute (2) Anemia due to blood loss, acute: likely 2/2 acute blood loss Continue to hold aspirin,lovenox and lisniopril transfused 2 unit PRBC on 08/12 , rpt Hb improved at 8.9, again stable at 7.5 Status: Acute (3) Leukocytosis: likely reactive leukocytosis post operatively Tmax 99.7 Check CXR for atelactasis, UA Status: Acute (4) Sinus tachycardia: likely 2/2 acute blood loss start metoprolol 12.5mg po daily Status: Acute Attestations Medical Necessity Statement*: close monitoring of H&H, post op monitoring Coding Level of Care Code Acute Protective Signal Installer Helper for [facility] Fw Diagnoses Lumbar stenosis with neurogenic claudication M48.062 Anemia due to blood loss, acute D62 Leukocytosis D72.829 Sinus tachycardia R00.0
[2020-08-14] MEDS: magnesium hydroxide 30 mL UDC PO (17:51)
[2020-08-15] VITALS (18 sets, daily range): BP systolic 108–150; BP diastolic 56–79; PULSE 91–123; RESP 17–20; TEMP 36.2–37.2; O2SAT 93–98
[2020-08-15 02:45] LABS: Hematocrit 21.8 % (37.0-47.0); Hemoglobin 6.9 g/dL (11.5-15.3)
--- NOTE | 2020-08-15 08:29 | P.PN_ITS ---
Subjective Subjective: Interval history: patient feeling much better today. She had explosive diarrhea last night and her stomach feels much better. Vitals/I&O/Wt Last Vital Signs Temp 97.1 F L 08/15/20 07:06 Pulse 123 H 08/15/20 07:06 Resp 17 08/15/20 07:06 BP 119/67 08/15/20 07:06 Pulse Ox 98 08/15/20 07:06 08/14/20 08/15/20 08/15/20 22:59 06:59 14:59 Intake Total 20 / 1266.5 Output Total 300 / 500 Balance 20 / 1066.5 -300 / 766.5 Physical Exam Narrative: EXAM NARRATIVE: Patient has 5-5 strength. Sensation intact. She is up ambulating earlier yesterday. Urinary Catheter Management^: F: Cath Placed During This Visit: yes, but has since been removed by the nurse Reason for Continuing Indwelling Catheter: Not indwelling catheter Urinary Catheter Date of Insertion: 08/12/20 Urinary Catheter Time of Insertion: 09:30 Date Urinary Catheter Removed: 08/13/20 Time Urinary Catheter Discontinued: 18:15 Data : 08/15/20 02:34 08/14/20 01:47 A&P Additional A&P Information Patient's hemoglobin was down to 6.9. I like to see this above 7 we will discha rge her. This point my plan is to give her 2 units of packed red blood cells. Get her up again with therapy today. And likely discharge her home tomorrow. Attestations Medical Necessity Statement*: Patient's hemoglobin was 6.9 today. At this point I would like to keep her over night give her some blood and make sure that she is okay to be discharged home. Coding Level of Care Code Acute Textile Worker for Rafia Anguiano
--- NOTE | 2020-08-15 08:33 | PC.SOCIAL ---
*IMM UPDATE* in flight refueling manager gave IMM update to patient. Provided patient copy of page 2 of IMM. Understood. 08/15/20 @ 5614 Initialed, dated, timed and placed in chart.
[2020-08-15] MEDS: atorvastatin 40 mg Tablet PO (08:56)
[2020-08-15] MEDS: multivitamin therapeutic Tablet 1 TAB PO (08:56)
[2020-08-15] MEDS: pantoprazole DR 40 mg Tablet PO (08:56)
[2020-08-15] MEDS: meloxicam 7.5 mg tablet 15 MG PO (08:57)
[2020-08-15] MEDS: iron polysaccharide complex 150 mg Capsule PO ×2 (08:58→17:17)
[2020-08-15] MEDS: gabapentin 100 mg Capsule PO (08:58)
[2020-08-15] MEDS: metformin 500 mg Tablet PO (08:58)
[2020-08-15] MEDS: metoprolol succinate ER (24 HR) 25 mg Tablet 12.5 MG PO (10:27)
[2020-08-15 12:50] LABS: Bilirubin Urine Neg (Negative); Blood Urine 3+ (Negative); Glucose Urine UA Norm (Normal); Ketones Urine Negative (Negative); Nitrate Urine Negative (Negative); Protein Urine Neg (Negative); Specific Gravity, Urine 1.005 (1.005-1.030); Urine Appearance Cloudy (CLEAR); Urine Color Yellow (Yellow); Urobilinogen Urine Norm (Negative); pH Urine 7 (5-7)
[2020-08-15 12:51] LABS: Add Urine Culture? Yes; Add Urine Microscopic? YES; Bacteria Urine 2+ /hpf; Leukocyte Esterase Urine 1+ (Negative); RBC Urine 0-4 /hpf (0-2); Squamous Epithelial Cell Urine 0-4 /hpf (0-5)
[2020-08-15] MEDS: sodium chloride 0.9% (100 ml) 100 ML ×2 (13:50→17:16)
--- NOTE | 2020-08-15 15:31 | P.PN_ITS ---
Subjective Subjective: Interval history: Patient reports feeling improved today. Pain is better controlled. She is not nauseous. Could not take metoprolol yesterday as she was nauseous. Reports that at home her heart rate tends to run around a rate of 100. This has not been evaluated in the past. She is noted to be ambulating within the room and participating with physical therapy. Hemoglobin today at 6.9, getting transfusion with 2 units of packed cells Medications: Reviewed: Yes Vitals/I&O/Wt Last Vital Signs Temp 98.9 F 08/15/20 15:09 Pulse 95 08/15/20 15:09 Resp 17 08/15/20 15:09 BP 115/62 08/15/20 15:09 Pulse Ox 98 08/15/20 15:09 08/15/20 08/15/20 08/15/20 06:59 14:59 22:59 Intake Total 1310 / 1310 Output Total 300 / 500 Balance -300 / 766.5 1310 / 1310 Physical Exam Narrative: EXAM NARRATIVE: GEN: Awake, alert and oriented, no acute distress CVS: S1S2 N RS: CTA B/L Abd: Soft, nt/nd , bs+ BLOW MACHINE TENDER STARCH SPRAYING: no focal neuro deficits Urinary Catheter Management^: F: Cath Placed During This Visit: yes, but has since been removed by the nurse Reason for Continuing Indwelling Catheter: Not indwelling catheter Urinary Catheter Date of Insertion: 08/12/20 Urinary Catheter Time of Insertion: 09:30 Date Urinary Catheter Removed: 08/13/20 Time Urinary Catheter Discontinued: 18:15 Data : 08/15/20 02:34 08/14/20 01:47 A&P Assessment and plan (1) Lumbar stenosis with neurogenic claudication: Postop care per orthopedics. Pain is currently well controlled, patient is ambulating and participating with physical therapy. Status: Acute (2) Anemia due to blood loss, acute: likely 2/2 acute blood loss Continue to hold aspirin,lovenox and lisniopril transfused 2 unit PRBC on 08/12 , hemoglobin today at 6.9, scheduled for transfusion today. Continue iron supplementation and multivitamins. Continue to hold aspirin Status: Acute (3) Leukocytosis: likely reactive leukocytosis post operatively Tmax 99.7, no focal signs or symptoms of infection. Chest x-ray without consolidation or atelectasis. Status: Acute (4) Sinus tachycardia: Patient states her baseline heart rate stays around 100. Currently ranging between 100 to 120 bpm. start metoprolol 12.5mg po daily Status: Acute (5) Hypertension: Currently blood pressure is well controlled off lisinopril. Metoprolol has additionally been added, monitor with this change. Status: Acute Attestations Medical Necessity Statement*: Per admitting team's note, blood transfusion today Coding Level of Care Code Acute Surgical Oncologist for g Fwd Diagnoses Lumbar stenosis with neurogenic claudication M48.062 Anemia due to blood loss, acute D62 Leukocytosis D72.829 Sinus tachycardia R00.0 Hypertension I10
[2020-08-16] VITALS: BP 139/87; PULSE 92; RESP 20; TEMP 36.9; O2SAT 95
[2020-08-16] MEDS: acetaminophen 325 mg Tablet 650 MG PO ×2 (01:37→09:41)
[2020-08-16 03:01] LABS: Hematocrit 28.1 % (37.0-47.0); Hemoglobin 9.2 g/dL (11.5-15.3)
[2020-08-16 04:00] VITALS: BP 143/75; PULSE 89; RESP 18; TEMP 36.7; O2SAT 96
[2020-08-16 05:30] VITALS: PULSE 80
[2020-08-16] MEDS: enoxaparin 40 mg/0.4 mL Syringe SUBCUT (06:27)
--- NOTE | 2020-08-16 07:22 | PM.DCS ---
Discharge Providers Date of Admission: 08/12/20 15:43 Date of Discharge: August 16, 2020 Attending Provider at Admission: Marcello Wesley DO Attending Provider at Discharge: Marcello Wesley DO Primary Care Provider: Sydnie Gooden MD Diagnoses at Discharge Discharge Diagnosis (1) Lumbar stenosis with neurogenic claudication: Status: Acute (2) Anemia due to blood loss, acute: Status: Acute (3) Leukocytosis: Status: Acute (4) Sinus tachycardia: Status: Acute (5) Hypertension: Status: Acute Reason for Visit Reason for Visit: L2 ?S1 PSF lumbar pelvic fixation revision L3/4 de Hospital Course Hospital Course Patient was admitted to the hospital on 08/12/20. Had a T11 to the pelvis posterior spine fusion with revision of previous hardware. She had cages placed at L5-S1 and L4-5. She tolerated surgery well she did require a total of 4 units of blood in her hospital stay. To initially postop and then 2 on 08/15/2020. Her wound has some drainage however no evidence of any infection or purulence. My plan is to discharge her on Bactrim prophylactically. She has pain controlled with Tylenol. Narcotic pain meds have been making her nauseous. I will see her back in clinic in 1 week. And she will be discharged on 08/16/2020. I ordered a home health nurse. For dressing changes. Physical Exam Narrative: EXAM NARRATIVE: Wound was evaluated there is some drainage serous in nature. Wound looks clean and intact no evidence of any opening no evidence of any purulence no redness. Strength is 5-5 bilateral lower extremities sensation intact. Urinary Catheter Management^: F: Cath Placed During This Visit: yes, but has since been removed by the nurse Reason for Continuing Indwelling Catheter: Not indwelling catheter Urinary Catheter Date of Insertion: 08/12/20 Urinary Catheter Time of Insertion: 09:30 Date Urinary Catheter Removed: 08/13/20 Time Urinary Catheter Discontinued: 18:15 Discharge Data Data Completed and Pending: Completed Studies During Hospitalization Category Date Time Status XR chest 1V alex ble [id number] Routine Exams 08/14/20 13:00 Completed XR lumbar spine 2 -3V* [id number] Routine Exams 08/12/20 Completed Labs from last 24 hours 08/16/20 08/15/20 08/12/20 02:18 10:40 16:52 Hgb 9.2 L D Hct 28.1 L Urine Color Yellow Urine Appearance Cloudy Urine pH 7 Ur Specific Gravit y 1.005 Urine Protein Neg Urine Glucose (UA) Norm Urine Ketones Negative Urine Blood 3+ H Urine Nitrate Negative Urine Bilirubin Neg Urine Urobilinogen Norm Ur Leukocyte Mily ase 1+ H Urine RBC 0-4 H Urine WBC 10-15 H Ur Squamous Epith Cells 0-4 H Amorphous Sediment Not Reportable Urine Bacteria 2+ H Blood Type A Negative Rho(D) Type Negative Antibody Screen Negative Crossmatch See Detail Vitals: Last Vital Signs Temp 98.0 F 08/16/20 04:00 Pulse 80 08/16/20 05:30 Resp 18 08/16/20 04:00 BP 143/75 08/16/20 04:00 Pulse Ox 96 08/16/20 04:00 Discharge Plan Discharge Patient Disposition: Home Condition: Stable Prescriptions: New Bactrim 400-80 mg tablet 1 tab PO BID 10 Days Qty: 20 RF: 0 Continued atorvastatin 40 mg tablet 40 mg PO DAILY RF: 0 pantoprazole 20 mg tablet,delayed release (DR/EC) 20 mg PO DAILY RF: 0 lisinopril 40 mg tablet 40 mg PO DAILY RF: 0 metformin 500 mg tablet 500 mg PO DAILY RF: 0 meloxicam 15 mg tablet 15 mg PO DAILY RF: 0 daofwerbm-hyjcwj-rfj-Am-gly,Mx 500-400 mg/15 mL liquid 500 ml PO DAILY RF: 0 aspirin [Adult Low Dose Aspirin] 81 mg tablet,delayed release (DR/EC) 81 mg PO DAILY RF: 0 gabapentin 100 mg capsule 100 mg PO DAILY RF: 0 Discharge Orders: Discharge Order (Routine); Ordered 08/16/20 Ordered By: Marcello Wesley Referrals: [facility] [Outside] Discharge Diet: Advance as tolerated, Usual diet and As Directed Discharge Activity: Resume usual activity and Increase activity as tolerated Activity Restrictions/Additional Instructions: Thank you for [facility] for your care! The following is a list of instructions, from your provider, to follow upon your discharge to ensure you have the optimal recovery from your recent injury orsurgery. Follow-up care is a kendrick part of your treatment and safety. Be sure to make and go to all appointments, and call your doctor if you are having problems. If you do not already have a follow-up appointment made, call Dr. Wesley office in the next 1-3 days to make follow up appointment for 1 weeks at [phone]. It is also a good idea to know your test results and keep a list of the medicines you take. Medications will be prescribed for you at your provider's discretion. These medications are to be used as instructed; if they are taken more often that prescribed they will not be refilled early and in most cases will not be refilled at all. > When a refill is needed,you should contact wei carrington 2-3 business days before your prescription runs out. Medications will NOT be refilled by foreign legal consultant providers after hours! > Many pain medications contain Tylenol (Acetaminophen). Do not consume more than 4,000 mg of Tylenol per day in total with any combination ofmedications. > Pain medications can cause constipation. Please use an over the counter stool softener as directed, while taking pain medications. Consulty our local pharmacist with questions or recommendations on stool softeners. If constipation persists, contact our office or your primary care provider. > While under our care,you are not to receive pain medications or other controlled substances from any other provider unless our office is notified and approves. Any attempts to do so will result in refusal to prescribe any further pain medications and possible dismissal from our practice. ? CHANGE DRESSING BID until no drainage Your wound and/or dressing should remain clean and dry for 2 days after surgery. On postoperative day 2 (48 hours after your surgery) the dressing (if present) should be removed and it is okay to shower and get the incision wet. Pad dry afterwards. No further dressing should be required from that point on. Do not put any creams or ointments on theincision > It is normal for there to be a small amount of discharge (bloody or blood tinged) present from a surgical wound for the first 1-3days. > The wound should be examined twice a day for signs of infection. Mild redness or bruising is to be expected but indications that an infection maybe starting would include; An increase in redness, swelling, or discharge, a foul odor present around the incision, and/or a fever greater than 101 ?F ? Showering is permitted, however we ask that you do not take a bath, sit in a whirlpool / Jacuzzi, or go swimming for 1 month. For only the first 2 days after surgery, lt wilt be necessary for you to cover your wound/dressing with plastic and tape to keep it dry. ? Walking is essential for the healing process after surgery. We would like you to slowly advance your walking. This should be done on relatively flat clear ground (inside or out) or can be done on a treadmill. Remember this goal does not have to happen all at once, slowly increase your distance and duration. This can be broken into more more than one walk per day as tolerated. Patients who walk as directed after surgery rarely require Physical Therapy. In the unlikely event this issue arises your provider will direct hospital staff to make the appropriate arrangements. ? No lifting over 5 pounds {a gallon of milk) or bending/twisting until further notice. Each of these activities places an unnecessary amount of stress onto the body and can impede the delicate healing process. > Instead of bending at the waist, keep your back straight and bend at the knees. > Instead of twisting your torso, keep your back straight and turn your entire body with your feet. ? You may sleep in any position which makes you comfortable. Many patients find comfort sleeping in a reclining chair. It is not abnormal to have difficulty sleeping for the first several weeks following your surgery. We recommend trying Benadry! or Tylenol PM as directed to help with your sleeping difficulties. Both medications are over the counter and available withoutprescription. ? NO SMOKING!!! Smoking dramatically increases the probability of developing postoperative wound infections. ? Common complaints after lumbar and/or thoracic spine surgery include, but are not limited to: numbness and/or tingling in the legs, pain around the incision and surrounding tissues, muscle spasms, or stiffness of the middle to low back. Contact our office if these symptoms persist or if an acute change occurs. ? No driving for the first 3-5days, and not while taking narcotics [] until seen at your follow-up appointment and cleared. There are no restrictions for riding on short trips, however if you take a longer trip, arrangements should be made to make regular stops to get out of the vehicle and stretch . ? Swelling is an unfortunate event that will take place with any surgery and is the primary source of your postoperative discomfort. While walking and regular approved activities helps control inflammation, there are additional steps you can take to minimizeswelling. > Place ice over the surgical site and surrounding tissue for twenty minutes, followed by applying a low/medium heat (heating pad) for an additional twenty minutes every 1-2 hours as needed for painrelief. > You may use of over the counter anti-inflammatory medications (Ibuprofen, Motrin, Aleve, Advil, etc) as directed on the package label. These types of medicines wm significantly reduce the amount of discomfort you experience after surgery from swelling. It should be noted that if you have and allergy to any of these medications, or a history of ulcers or kidney disease you should consult you primary care provider prior to starting these medications. Discharge Attestations Time Spent in Discharge Care*: less than 30 min Quality Metrics Clinical Quality Measures During this hospital stay, did patient experience: None Coding Level of Care Code Acute Screen Making Supervisor for Rafia Fwd Diagnoses Lumbar stenosis with neurogenic claudication M48.062 Anemia due to blood loss, acute D62 Leukocytosis D72.829 Sinus tachycardia R00.0 Hypertension I10
[2020-08-16 08:00] VITALS: BP 120/61; PULSE 104; RESP 17; TEMP 36.7; O2SAT 98
[2020-08-16] MEDS: iron polysaccharide complex 150 mg Capsule PO (08:03)
[2020-08-16] MEDS: gabapentin 100 mg Capsule PO (08:04)
[2020-08-16] MEDS: atorvastatin 40 mg Tablet PO (08:04)
[2020-08-16] MEDS: metformin 500 mg Tablet PO (08:05)
[2020-08-16] MEDS: metoprolol succinate ER (24 HR) 25 mg Tablet 12.5 MG PO (08:06)
[2020-08-16] MEDS: multivitamin therapeutic Tablet 1 TAB PO (08:08)
[2020-08-16] MEDS: pantoprazole DR 40 mg Tablet PO (08:08)
[2020-08-16] MEDS: meloxicam 7.5 mg tablet 15 MG PO (08:12)
--- NOTE | 2020-08-16 11:33 | PC.NURSE ---
discharge instructions reviewed, denies further questions or concerns.
== END 2020-08-16 12:16 | disposition home or self-care (01) | DRG 460 ==
LOC: MEDSURG 19:34
PROVIDERS: Anesthesiology; Student in an Organized Health Care Education/Training Program; Admitting Provider Orthopaedic Surgery; PCP Internal Medicine; Visit Provider Orthopaedic Surgery
PROC: 0SG00AJ Fusion of Lumbar Vertebral Joint with Interbody Fusion Device, Posterior Approach, Anterior Column, Open Approach (ICD-10-PCS; principal; 2020-08-12 08:30)
DX: M48.062 Spinal stenosis, lumbar region with neurogenic claudication (principal); D62 Acute posthemorrhagic anemia; Z79.82 Long term (current) use of aspirin; I10 Essential (primary) hypertension; E11.9 Type 2 diabetes mellitus without complications; K21.9 Gastro-esophageal reflux disease without esophagitis; Z96.653 Presence of artificial knee joint, bilateral; E78.5 Hyperlipidemia, unspecified; M40.30 Flatback syndrome, site unspecified; I95.9 Hypotension, unspecified; R00.0 Tachycardia, unspecified; Z79.84 Long term (current) use of oral hypoglycemic drugs
CPT/HCPCS: 36415; 36416; 36430; 51702; 71045; 72100; 76000; 80048; 80053; 81001; 82728; 82962; 83540; 85007; 85014; 85018; 85025; 85027; 85730; 86850; 86900; 86920; 93005; 96365; 96372; 97116; 97161; 97530; C1713; C9359; J0690; J1100; J1170; J1200; J1644; J1650; J1885; J2370; J2405; J2550; J3010; J3370; J3490; J7030; P9016; P9041; P9047

== ENCOUNTER 2020-08-19 14:13 | Emergency (ER) | payer MEDICARE, OTHER, SELFPAY ==
[2020-08-19 14:29] VITALS: BP 142/85; PULSE 124; RESP 14; TEMP 36.9; O2SAT 96; BMI 28.8
[2020-08-19 14:46] VITALS: BP 135/91; PULSE 129; RESP 18; O2SAT 96
--- NOTE | 2020-08-19 14:56 | USCV_ITS ---
Inna Mohr Age: 69 Gender: F : 1950 Exam Date: 08/19/2020 15:23 Ordering Phys: Emiliano Alexander Technologist: Loren Tillman Exam Location: [facility] – [place] Indication: LLE PAIN S/P RECENT BACK SX HISTORY: Lower extremity pain. PROCEDURES: Venous duplex imaging was performed in only the left lower extremity. The following venous structures were evaluated: common femoral vein, profunda vein, proximal portion of the greater saphenous vein, superficial femoral vein, and the popliteal vein. In addition, the posterior tibial veins were evaluated. Serial compression, augmentation maneuvers, and spectral Doppler flow evaluation were performed. FINDINGS: Normal 2-D Doppler and augmentation and compressibility throughout the lower extremity venous structures. Additional imaging through the proximal calf veins also reveals no thrombus. Limited evaluation of the greater saphenous vein is patent with no thrombus.. CONCLUSIONS No DVT left lower extremity. Dr. Izabela Mckeon DO (Electronically Signed) Final Date: 19 August 2020 16:08 S
[2020-08-19 15:15] VITALS: BP 118/74; PULSE 122; RESP 18; O2SAT 99
--- NOTE | 2020-08-19 15:26 | W.ED.EXTPRO ---
HPI - Extremity Problem General: Chief complaint: Extremity Problem,Nontraumatic Stated complaint: post surgery/ Lt leg pain Time Seen by Provider: 08/19/20 14:53 History of Present Illness: HPI Narrative: Patient is a 69-year-old female comes to the ED with left lower leg pain. Patient says pain started last before she was discharged from the hospital after back surgery. She describes the pain as cramping pain in her left calf. She rates it currently an 8 out of 10. Denies shortness of breath, chest pain, hemoptysis. patient had a back surgery last Wednesday with no complications. Associated symptoms: Deny chest pain, fever(s) or rash Review of Systems Const: Denies: fever(s), chills or fatigue Eyes: Denies: change in vision or eye discomfort ENMT: Denies: throat pain, odynophagia, nasal discharge or nasal congestion Card: Denies: chest pain, palpitations, edema, swelling of feet/ankles, dyspnea on exertion or orthopnea Resp: Denies: dyspnea, productive cough or non-productive cough GI: Denies: abdominal pain, nausea, vomiting, diarrhea, constipation or hematochezia : Denies: flank pain, dysuria or hematuria Musc: Reports: extremity pain (left calf pain and cramping); Denies: neck pain, back pain or extremity swelling Skin/Breast: Denies: rash or new lesions Neuro: Denies: headache(s), numbness in extremities or weakness in extremities PFSH ED PFSH: Medical History Accelerated essential hypertension Diabetes Gastroesophageal reflux High cholesterol History of revision of total replacement of left knee joint Surgical History H/O: hysterectomy History of back surgery History of carpal tunnel surgery of left wrist History of carpal tunnel surgery of right wrist History of total left knee replacement History of total right knee replacement Hx of repair of rotator cuff Family History Mother Diabetes Hypertension CAD (coronary artery disease) Grandmother Stroke Social History Smoking and tobacco status: never smoked Alcohol intake: never Physical Exam Const: COMMON NORMALS: no acute distress, patient oriented x3, healthy appearing and alert GENERAL APPEARANCE: cooperative and comfortable HENMT: COMMON NORMALS: normocephalic HEAD & SCALP: normocephalic MOUTH: Normal oral and palatal mucosa present THROAT: posterior oropharynx normal and uvula midline Neck/C-Spine: COMMON NORMALS: supple GENERAL: Yes normal visual inspection Resp: COMMON NORMALS: normal respiratory effort, No retractions, No use of accessory muscles and clear to auscultation bilaterally EFFORT & INSPECTION: Yes able to speak in complete sentences, No tachypneic, No respiratory distress and No labored AUSCULTATION: clear to auscultation bilaterally Cardio: COMMON NORMALS: regular rate, regular rhythm, S1 normal heart sound present, S2 normal heart sound present, No gallops present (Cardio), No clicks present (Cardio), No murmurs present (Cardio) and Peripheral pulses 2+ throughout RATE: regular rate RHYTHM: regular rhythm HEART SOUNDS: S1 normal heart sound present and S2 normal heart sound present PERIPHERAL PULSES: Peripheral pulses 2+ throughout GI: COMMON NORMALS: Normal to inspection, nondistended, normoactive bowel sounds present, Soft to palpation, non-tender and no masses PALPATION: Yes Soft to palpation : COMMON NORMALS: Yes no CVA tenderness BLADDER/KIDNEY EXAM: Yes no CVA tenderness Back/Pelvis: COMMON NORMALS: no CVA tenderness Extremity: COMMON NORMALS: no pedal edema GENERAL: Yes normal exam except as noted and Yes calf tenderness (left) LEFT LOWER EXTREMITY: Yes lower leg Left lower leg: Yes inspection (No ecchymosis, erythema, warmth or swelling.), Yes palpation (Mild calf tenderness) and Yes neurovascular exam (Intact, 2+ pulse.) Neuro: COMMON NORMALS: patient oriented x3 and moves all extremities SENSORIUM/ORIENTATION: Yes alert Skin: GENERAL SKIN EXAM: dry skin Course Reevaluation(s): Reevaluation #1: Patient is tachycardic and her heart rate ranges around one 115-120. She denies any chest pain, shortness of breath or hemoptysis. Her left leg pain is rated an 8 out of 10 before the Toradol. I discussed with her that I would like to get some basic lab work and an EKG. She understood and agreed with plan. Reevaluation #2: After patient got Toradol when checked on her. Patient's pain is improving and her heart rate when I was in the room was around 100-105 range. She rated her pain a 6 out of 10. O2 saturation was at 98% on room air. She denied any chest pain or shortness of breath. Time: 16:45 Vital Signs: Vital signs: Vital Signs Temperature 98.4 F 08/19/20 14:29 Pulse Rate 111 H 08/19/20 17:13 Respiratory Rate 17 08/19/20 17:13 Blood Pressure 127/89 08/19/20 17:13 Pulse Oximetry 98 08/19/20 17:13 MDM - Extremity (Nontraumatic) MDM Narrative: Medical decision making narrative: Patient is a 69-year-old female comes to the ED with left calf pain. Patient had a back surgery 1 week ago and was in the hospital for approximately 3 days postop. Patient denies any chest pain, hemoptysis, shortness of breath. Vitals were significant for tachycardia with a heart rate between 115-120. Respirations 14, blood pressure 142/85, temp 98.4, O2 sat 96% on room air. Exam shows a patient in no acute distress. Lungs were clear to auscultation bilaterally and patient appears in no respiratory distress. No lower leg edema in the patient did have left calf tenderness upon palpation. Pedal pulses 2+ bilaterally. Ultrasound venous duplex of left lower extremity showed no DVTs or blood clots. White blood cell count 12.2 which is trending down from previous testing before hospital discharge. Hemoglobin 10.7 is trending upward from previous testing at discharge from hospital. The rest of CMP was unremarkable. Patient was given Toradol here in the ED and her symptoms improved. Patient was diagnosed with left calf pain and discharged home. Return to ED precautions given. Follow-up with her surgeon at scheduled postop appointment. Patient understood agree with plan. Lab Data: Attestation: I reviewed the patient's lab results. Labs: Lab Results 08/19/20 08/19/20 Range/Units 16:20 16:20 WBC 12.2 H (4.0-10.0) 10^3/ uL RBC 3.71 L (4.1-5.3) 10^6/u L Hgb 10.7 L (11.5-15.3) g/dL Hct 33.3 L (37.0-47.0) % MCV 89.8 (81-99) fL MCH 28.8 (28.0-34.0) pg MCHC 32.1 (30.0-36.0) g/dL RDW 15.4 H (12.1-15.1) % Plt Count 305 (130-400) 10^3/c mm MPV 8.6 (7.4-10.4) fL Neut % (Auto) 66.6 % Lymph % (Auto) 15.8 % [place] % (Auto) 11.4 % Eos % (Auto) 1.5 % Baso % (Auto) 0.3 % Neut # (Auto) 8.14 H (1.8-7.7) 10^3/u L Lymph # (Auto) 1.9 (0.8-4.8) 10^3/u L [place] # (Auto) 1.4 H (0.2-0.9) 10^3/u L Eos # (Auto) 0.2 (0.0-0.8) 10^3/u L Baso # (Auto) 0.0 (0.0-0.1) 10^3/u L Nucleated RBC % (a uto) 0.2 % Nucleated RBCs # 0.0 /100WBC Sodium 136 (136-145) mmol/L Potassium 4.2 (3.5-5.1) mmol/L Chloride 102 (98-107) mmol/L Carbon Dioxide 22 (22-29) mmol/L Anion Gap 16.2 (5-19) BUN 18 (8-23) mg/dL Creatinine 0.7 (0.5-0.9) mg/dL GFR Calculation 83.0 L (90-130) mL/min Glucose 127 H (65-115) mg/dL Calculated Osmolal ity 285 (285-295) mOsm/k g Calcium 8.9 (8.5-10.5) mg/dL Total Bilirubin 0.3 (0.15-1.2) mg/dL AST 72 H (0-32) U/L ALT 79 H (0-33) U/L Alkaline Phosphata se 153 H (35-105) IU/L Total Protein 6.8 (6.6-8.7) g/dL Albumin 3.6 (3.5-5.2) g/dL Globulin 3.2 (1.3-4.6) g/dL Imaging Data^: US Vascular: Attestation: I personally reviewed and interpreted this imaging study as follows: Radiologist's impression: Ultrasound venous duplex of left lower extremity. Prelim report?no DVT or blood clots seen. EKG Data^: EKG 1: Attestation: I personally reviewed and interpreted this EKG as follows: EKG interpretation date: 08/19/20 Interpretation: Sinus tachycardia, 110 bpm, no ST segment elevation or depression seen. Discharge Plan Discharge Patient Disposition: Home Clinical Impression: Calf pain Qualifiers: Laterality: left Qualified Code(s): M79.662 - Pain in left lower leg Condition: Stable Prescriptions: No Action atorvastatin 40 mg tablet 40 mg PO DAILY RF: 0 pantoprazole 20 mg tablet,delayed release (DR/EC) 20 mg PO DAILY RF: 0 lisinopril 40 mg tablet 40 mg PO DAILY RF: 0 metformin 500 mg tablet 500 mg PO DAILY RF: 0 meloxicam 15 mg tablet 15 mg PO DAILY RF: 0 bdncrauhe-silyjf-mtc-Am-gly,Mx 500-400 mg/15 mL liquid 500 ml PO DAILY RF: 0 aspirin [Adult Low Dose Aspirin] 81 mg tablet,delayed release (DR/EC) 81 mg PO DAILY RF: 0 prednisone 20 mg tablet 20 mg PO DAILY Qty: 15 RF: 0 gabapentin 100 mg capsule 100 mg PO DAILY RF: 0 Bactrim 400-80 mg tablet 1 tab PO BID 10 Days Qty: 20 RF: 0 Discharge Orders: Discharge ED (Routine); Ordered 08/19/20 Ordered By: Emiliano Alexander Referrals: Sydnie Gooden MD [Primary Care Provider] - Discharge Diet: Regular Discharge Activity: Increase activity as tolerated Activity Restrictions/Additional Instructions: Follow-up with medical provider as directed in 7 to 10 days for reevaluation. Continue taking all previously prescribed medications. Return to the ER or your medical provider if condition worsens. Please read and understand discharge instructions. If any questions, please ask. Coding Level of Care Code ED Computer Network Support Specialist for Chg Fwd Exam Comprehensive
[2020-08-19] MEDS: ketorolac 60 mg/2 mL INJ IM (15:55)
[2020-08-19 15:59] VITALS: BP 139/72; PULSE 113; RESP 18; O2SAT 96
--- NOTE | 2020-08-19 16:02 | ECG_ITS ---
[facility] Test Date: 2020-08-19 Pat Name: Inna Mohr Department: Room: Gender: Female Community Manager: : 1950 Requested By: Emiliano Alexander Order Number: [id number] Era MD: Asif Abdul M.D. Measurements Intervals Jadwin Rate: 110 P: 48 NH: 175 QRS: 54 QRSD: 67 T: 38 QT: 291 QTc: 395 Interpretive Statements SINUS TACHYCARDIA NONSPECIFIC ST & T-WAVE ABNORMALITY Compared to ECG 08/08/2020 10:56:45 No significant changes Electronically Signed On 08-19-2020 18:49:22 WOOL BUYER by Asif Abdul M.D. [email or web address]
[2020-08-19 16:26] VITALS: BP 105/84; PULSE 111; RESP 17; O2SAT 93
[2020-08-19 16:52] LABS: Basophils % 0.3 %; Eosinophils # 0.2 10^3/uL (0.0-0.8); Eosinophils % 1.5 %; Hematocrit 33.3 % (37.0-47.0); Hemoglobin 10.7 g/dL (11.5-15.3); Lymphocytes # 1.9 10^3/uL (0.8-4.8); Lymphocytes % 15.8 %; Mean Corpuscular HGB Conc 32.1 g/dL (30.0-36.0); Mean Corpuscular Hemoglobin 28.8 pg (28.0-34.0); Mean Corpuscular Volume 89.8 fL (81-99); Mean Platelet Volume 8.6 fL (7.4-10.4); Monocytes # 1.4 10^3/uL (0.2-0.9); Monocytes % 11.4 %; Neutrophils # 8.14 10^3/uL (1.8-7.7); Neutrophils % 66.6 %; Nucleated Red Blood Cells % 0.2 %; Platelet Count 305 10^3/cmm (130-400); Red Blood Count 3.71 10^6/uL (4.1-5.3); Red Cell Distribution Width 15.4 % (12.1-15.1); White Blood Count 12.2 10^3/uL (4.0-10.0)
[2020-08-19 17:05] LABS: Alanine Aminotransferase 79 U/L (0-33); Albumin Level 3.6 g/dL (3.5-5.2); Alkaline Phosphatase 153 IU/L (35-105); Anion Gap 16.2 (5-19); Aspartate Amino Transferase 72 U/L (0-32); Blood Urea Nitrogen 18 mg/dL (8-23); Calcium 8.9 mg/dL (8.5-10.5); Carbon Dioxide 22 mmol/L (22-29); Chloride 102 mmol/L (98-107); Globulin 3.2 g/dL (1.3-4.6); Glucose 127 mg/dL (65-115); Osmolality Calculated 285 mOsm/kg (285-295); Potassium 4.2 mmol/L (3.5-5.1); Sodium 136 mmol/L (136-145); Total Bilirubin 0.3 mg/dL (0.15-1.2); Total Protein 6.8 g/dL (6.6-8.7)
[2020-08-19 17:13] VITALS: BP 127/89; PULSE 111; RESP 17; O2SAT 98
== END 2020-08-19 17:13 | disposition home or self-care (01) ==
PROVIDERS: Emergency Provider Physician Assistant; PCP Internal Medicine
DX: M79.662 Pain in left lower leg (principal); Z79.82 Long term (current) use of aspirin; Z79.84 Long term (current) use of oral hypoglycemic drugs; E11.9 Type 2 diabetes mellitus without complications; Z96.653 Presence of artificial knee joint, bilateral
CPT/HCPCS: 80053; 85025; 93005; 93971; 96372; 99283; J1885

== ENCOUNTER → 2020-08-23 07:56 | Outpatient (BNVA) | payer MEDICARE, OTHER, SELFPAY | PROVIDERS: PCP Internal Medicine; Visit Provider Orthopaedic Surgery | DX: M48.062 Spinal stenosis, lumbar region with neurogenic claudication (principal); Z48.89 Encounter for other specified surgical aftercare; Z98.1 Arthrodesis status | CPT/HCPCS: 72100 ==

== ENCOUNTER 2020-08-26 09:56 | Emergency (ER) | payer MEDICARE, OTHER, SELFPAY ==
[2020-08-26 09:59] VITALS: BP 164/90; PULSE 119; RESP 16; TEMP 36.6; O2SAT 99; BMI 28.8
--- NOTE | 2020-08-26 10:06 | XRR_ITS ---
PROCEDURE INFORMATION: Exam: XR Chest Exam date and time: 08/26/2020 10:19 AM Age: 69 years old Clinical indication: Cough and dyspnea; Prior surgery; Surgery date: <1 month; Surgery type: Lower lumbar; Patient HX: N/v since surgery 2 weeks ago; Additional info: Dyspnea/cough TECHNIQUE: Imaging protocol: XR of the chest Views: 1 view. COMPARISON: CR XR chest 1V portable [id number] 08/14/2020 1:12 PM FINDINGS: Lungs: Unremarkable. No consolidation. Pleural spaces: Unremarkable. No pleural effusion. No pneumothorax. Heart/Mediastinum: Unremarkable. No cardiomegaly. Bones/joints: Metal hardware from spinal fusion surgery is seen in the distal thoracic spine. XR/XR chest 1V portable [id number] IMPRESSION: No acute findings.
[2020-08-26 10:30] VITALS: BP 152/85; PULSE 106; RESP 12; O2SAT 98
[2020-08-26] MEDS: ondansetron 2 mg/ML SDV 2 mL 4 MG IVP (10:37)
[2020-08-26] MEDS: sodium chloride 0.9% 1,000 ML 999 ML IV (10:38)
--- NOTE | 2020-08-26 10:43 | ED_ITS ---
HPI - Nausea/Vomiting/Diarrhea General: Chief complaint: Nausea/Vomiting/Diarrhea Stated complaint: n/v has not eaten in 48 hours, back leaking fluid Time Seen by Provider: 08/26/20 10:00 History of Present Illness: HPI Narrative: 69 yo female [facility] ED PFSH: Medical History Accelerated essential hypertension Diabetes Gastroesophageal reflux High cholesterol History of revision of total replacement of left knee joint Surgical History H/O: hysterectomy History of back surgery History of carpal tunnel surgery of left wrist History of carpal tunnel surgery of right wrist History of total left knee replacement History of total right knee replacement Hx of repair of rotator cuff Family History Mother Diabetes Hypertension CAD (coronary artery disease) Grandmother Stroke Social History Smoking and tobacco status: never smoked Alcohol intake: never Course Vital Signs: Vital signs: Vital Signs Temperature 97.9 F 08/26/20 09:59 Pulse Rate 111 H 08/26/20 12:16 Respiratory Rate 18 08/26/20 12:16 Blood Pressure 159/74 08/26/20 12:16 Pulse Oximetry 98 08/26/20 12:16 MDM - Nausea/Vomiting/Diarrhea Lab Data: Labs: Lab Results 08/26/20 08/26/20 08/26/20 Range/Units 10:37 10:37 10:40 WBC 22.8 H (4.0-10.0) 10^3/ uL RBC 4.35 (4.1-5.3) 10^6/u L Hgb 12.3 (11.5-15.3) g/dL Hct 37.7 (37.0-47.0) % MCV 86.7 (81-99) fL MCH 28.3 (28.0-34.0) pg MCHC 32.6 (30.0-36.0) g/dL RDW 15.2 H (12.1-15.1) % Plt Count 630 H (130-400) 10^3/c mm MPV 8.3 (7.4-10.4) fL Neut % (Auto) 87.6 % Lymph % (Auto) 6.2 % Mobile % (Auto) 4.0 % Eos % (Auto) 0.5 % Baso % (Auto) 0.1 % Neut # (Auto) 19.95 H (1.8-7.7) 10^3/u L Lymph # (Auto) 1.4 (0.8-4.8) 10^3/u L Mobile # (Auto) 0.9 (0.2-0.9) 10^3/u L Eos # (Auto) 0.1 (0.0-0.8) 10^3/u L Baso # (Auto) 0.0 (0.0-0.1) 10^3/u L Nucleated RBC % (a uto) 0 % Nucleated RBCs # 0.0 /100WBC Sodium 135 L (136-145) mmol/L Potassium 4.8 (3.5-5.1) mmol/L Chloride 97 L (98-107) mmol/L Carbon Dioxide 21 L (22-29) mmol/L Anion Gap 21.8 H (5-19) BUN 29 H (8-23) mg/dL Creatinine 0.7 (0.5-0.9) mg/dL GFR Calculation 83.0 L (90-130) mL/min Glucose 188 H (65-115) mg/dL Calculated Osmolal ity 291 (285-295) mOsm/k g Calcium 10.9 H (8.5-10.5) mg/dL Total Bilirubin 0.6 (0.15-1.2) mg/dL AST 18 (0-32) U/L ALT 28 (0-33) U/L Alkaline Phosphata se 278 H (35-105) IU/L Creatine Kinase 19 L (26-192) U/L Total Protein 7.4 (6.6-8.7) g/dL Albumin 4.6 (3.5-5.2) g/dL Globulin 2.8 (1.3-4.6) g/dL Urine Color Yellow (Yellow) Urine Appearance Sl hazy (CLEAR) Urine pH 5 (5-7) Ur Specific Gravit y 1.025 (1.005-1.030) Urine Protein Trace (Negative) Urine Glucose (UA) Norm (Normal) Urine Ketones Negative (Negative) Urine Blood Neg (Negative) Urine Nitrate Negative (Negative) Urine Bilirubin Neg (Negative) Urine Urobilinogen 1 H (Negative) mg/dL Ur Leukocyte Mily ase Negative (Negative) Urine RBC None (0-2) /hpf Urine WBC 0-4 H (0-5) /hpf Ur Squamous Epith Cells 0-4 H (0-5) /hpf Amorphous Sediment 1+ /hpf Urine Bacteria 1+ H (NONE) /hpf Urine Mucus 1+ /hpf Discharge Plan Discharge Patient Disposition: Home Clinical Impression: S/P lumbar laminectomy, Seroma after procedure, Medication adverse effect Condition: Stable Prescriptions: New tramadol 50 mg tablet 50 mg PO Q6H PRN (Reason: pain) Qty: 30 RF: 0 promethazine 25 mg tablet 25 mg PO Q6H PRN (Reason: nausea and vomiting) Qty: 20 RF: 0 sulfamethoxazole-trimethoprim [Bactrim DS] 800-160 mg tablet 1 tab PO DAILY Qty: 6 RF: 0 No Action atorvastatin 40 mg tablet 40 mg PO DAILY@20 RF: 0 pantoprazole 20 mg tablet,delayed release (DR/EC) 20 mg PO DAILY@08 RF: 0 metformin 500 mg tablet 500 mg PO DAILY RF: 0 meloxicam 15 mg tablet 15 mg PO DAILY@08 RF: 0 aspirin [Adult Low Dose Aspirin] 81 mg tablet,delayed release (DR/EC) 81 mg PO DAILY@08 RF: 0 prednisone 20 mg tablet 20 mg PO DAILY Qty: 15 RF: 0 ondansetron HCl [Zofran] 4 mg tablet 4 mg PO Q6H PRN (Reason: nausea and vomiting) 7 Days Qty: 28 RF: 0 oxycodone-acetaminophen [Percocet] 5-325 mg tablet 1 tab PO Q6H PRN (Reason: pain) 7 Days Qty: 60 RF: 0 Bactrim 400-80 mg Tablet 1 tab PO BID RF: 0 lisinopril 20 mg tablet 20 mg PO DAILY@08 RF: 0 Glucosamine 500 mg Tablet 500 mg PO DAILY@08 RF: 0 gabapentin 100 mg capsule 100 mg PO BEDTIME@20 RF: 0 Discharge Orders: Discharge ED (Routine); Ordered 08/26/20 Ordered By: Pérez Banerjee Referrals: Sydnie Gooden MD [Primary Care Provider] - Patient Instructions: Opioid Safety Activity Restrictions/Additional Instructions: Follow-up with Dr. Wesley later this week return if you have further problems. Continue any restrictions that were given by Dr. Wesley postoperatively. Coding Level of Care Code ED Corporate Operations Compliance Manager for Rafia Anguiano
[2020-08-26 10:57] LABS: Basophils % 0.1 %; Eosinophils # 0.1 10^3/uL (0.0-0.8); Eosinophils % 0.5 %; Hematocrit 37.7 % (37.0-47.0); Hemoglobin 12.3 g/dL (11.5-15.3); Lymphocytes # 1.4 10^3/uL (0.8-4.8); Lymphocytes % 6.2 %; Mean Corpuscular HGB Conc 32.6 g/dL (30.0-36.0); Mean Corpuscular Hemoglobin 28.3 pg (28.0-34.0); Mean Corpuscular Volume 86.7 fL (81-99); Mean Platelet Volume 8.3 fL (7.4-10.4); Monocytes # 0.9 10^3/uL (0.2-0.9); Neutrophils # 19.95 10^3/uL (1.8-7.7); Neutrophils % 87.6 %; Nucleated Red Blood Cells % 0 %; Platelet Count 630 10^3/cmm (130-400); Red Blood Count 4.35 10^6/uL (4.1-5.3); Red Cell Distribution Width 15.2 % (12.1-15.1); White Blood Count 22.8 10^3/uL (4.0-10.0)
[2020-08-26 11:09] LABS: Add Urine Microscopic? YES; Bilirubin Urine Neg (Negative); Blood Urine Neg (Negative); Glucose Urine UA Norm (Normal); Ketones Urine Negative (Negative); Leukocyte Esterase Urine Negative (Negative); Nitrate Urine Negative (Negative); Protein Urine Trace (Negative); Specific Gravity, Urine 1.025 (1.005-1.030); Urine Appearance SL Hazy (CLEAR); Urine Color Yellow (Yellow); Urobilinogen Urine 1 mg/dL (Negative); WBC Urine 0-4 /hpf (0-5); pH Urine 5 (5-7)
[2020-08-26 11:10] LABS: Add Urine Culture? No; Amorphous Sediment Urine 1+ /hpf; Bacteria Urine 1+ /hpf; Mucus Urine 1+ /hpf; Squamous Epithelial Cell Urine 0-4 /hpf (0-5)
[2020-08-26 11:15] LABS: Alanine Aminotransferase 28 U/L (0-33); Albumin Level 4.6 g/dL (3.5-5.2); Alkaline Phosphatase 278 IU/L (35-105); Blood Urea Nitrogen 29 mg/dL (8-23); Calcium 10.9 mg/dL (8.5-10.5); Carbon Dioxide 21 mmol/L (22-29); Chloride 97 mmol/L (98-107); Creatine Phosphokinase 19 U/L (26-192); Globulin 2.8 g/dL (1.3-4.6); Glucose 188 mg/dL (65-115); Osmolality Calculated 291 mOsm/kg (285-295); Sodium 135 mmol/L (136-145); Total Bilirubin 0.6 mg/dL (0.15-1.2); Total Protein 7.4 g/dL (6.6-8.7)
[2020-08-26 11:17] LABS: Anion Gap 21.8 (5-19); Aspartate Amino Transferase 18 U/L (0-32); Potassium 4.8 mmol/L (3.5-5.1)
[2020-08-26] MEDS: promethazine 25 mg/mL SDV 1 mL IM (11:19)
[2020-08-26 11:21] VITALS: BP 161/88; PULSE 97; RESP 30; O2SAT 99
--- NOTE | 2020-08-26 11:28 | CTR_ITS ---
PROCEDURE INFORMATION: Exam: CT Lumbar Spine With Contrast Exam date and time: 08/26/2020 11:30 AM Age: 69 years old Clinical indication: Low back pain; Prior surgery; Surgery date: <1 month; Surgery type: Two week's post op thoracolumbar surgery now leaking fluid bad. (draining) very bad pain; Additional info: Post op incisional drainage TECHNIQUE: Imaging protocol: Computed tomography images of the lumbar spine with intravenous contrast. Radiation optimization: All CT scans at this facility use at least one of these dose optimization techniques: automated exposure control; mA and/or kV adjustment per patient size (includes targeted exams where dose is matched to clinical indication); or iterative reconstruction. Contrast material: OMNI 300; Contrast volume: 95 ml; Contrast route: INTRAVENOUS (IV); COMPARISON: No relevant prior studies available. RADIATION DOSE METRICS: Total DLP (mGy-cm): 3027.19 FINDINGS: Vertebrae: The patient has undergone extensive spinal surgery with posterior fusion from T11 down to the sacrum. Pedicle screws and rods extend from T11 down to S2. There is laminectomy from L2 through L5. No fracture or other acute bony abnormalities are seen. There is mild scoliosis convex to the left. There is grade 1 spondylolisthesis at the L2-L3 and L3-L4 levels. There is fluid at the laminectomy site extending posteriorly consistent with postsurgical hematoma or seroma formation. Discs/Spinal canal/Neural foramina: The metal hardware causes artifact that obscures portions of the lumbar canal. There is spinal stenosis at the L1-L2 level with prominent diffuse disc bulging. Above the level of the disc on the left side there is a 12 mm soft tissue density extending into the left lateral recess which may be due to a herniated disc. Allowing for the artifact no other definite spinal stenosis is seen. Soft tissues: Unremarkable. CT/CT lumbar spine w con [id number] IMPRESSION: 1. Extensive postsurgical changes with posterior fusion from T11 down to S2 and laminectomy from L2 through L5. 2. There is spinal stenosis at the L1-L2 level with prominent diffuse disc bulging along with a 12 mm soft tissue density on the left side of the canal consistent with a herniated disc fragment. 3. Grade 1 spondylolisthesis at L2-L3 and L3-L4. 4. There is a lobulated fluid collection at the site of the laminectomies extending posteriorly consistent with postsurgical hematoma or seroma formation. Radiation Dose CTDIVOL = (mGy): DLP = 3027.19 (mGy-cm)
[2020-08-26 11:47] VITALS: BP 170/97; PULSE 111; RESP 21; O2SAT 99
[2020-08-26] MEDS: iohexol 300 mg/mL 100 mL Btl IV (11:48)
[2020-08-26 12:16] VITALS: BP 159/74; PULSE 111; RESP 18; O2SAT 98
[2020-08-26 14:46] VITALS: BP 123/65; PULSE 101; RESP 16; O2SAT 97
--- NOTE | 2020-08-26 15:51 | PC.NURSE ---
Read and agree with assessment.
== END 2020-08-26 14:42 | disposition home or self-care (01) ==
PROVIDERS: Emergency Provider Family Medicine; PCP Internal Medicine
DX: M96.842 Postprocedural seroma of a musculoskeletal structure following a musculoskeletal system procedure (principal); T88.7XXA Unspecified adverse effect of drug or medicament, initial encounter; T50.905A Adverse effect of unspecified drugs, medicaments and biological substances, initial encounter; Z79.84 Long term (current) use of oral hypoglycemic drugs; Z79.82 Long term (current) use of aspirin; I10 Essential (primary) hypertension; E11.9 Type 2 diabetes mellitus without complications
CPT/HCPCS: 71045; 72132; 80053; 81001; 82550; 85025; 96360; 96372; 99283; J2405; J2550; J7030; Q9967

== ENCOUNTER 2020-09-10 09:24 | Inpatient (IN) | payer MEDICARE, OTHER, SELFPAY ==
--- NOTE | 2020-09-10 09:29 | XRR_ITS ---
PROCEDURE INFORMATION: Exam: XR Chest Exam date and time: 09/10/2020 9:33 AM Age: 69 years old Clinical indication: Cough and dyspnea; Patient HX: Back pain, dyspnea cough; Additional info: Dyspnea/cough TECHNIQUE: Imaging protocol: XR of the chest Views: 1 view. COMPARISON: CR XR chest 1V portable [id number] 08/26/2020 10:08 AM FINDINGS: Lungs: Unremarkable. No consolidation. Pleural spaces: Unremarkable. No pleural effusion. No pneumothorax. Heart/Mediastinum: Unremarkable. No cardiomegaly. Bones/joints: Metal hardware is present in the lower thoracic spine from spinal fusion surgery. XR/XR chest 1V portable [id number] IMPRESSION: No acute cardiopulmonary abnormality.
--- NOTE | 2020-09-10 09:31 | CT_ITS ---
WS: [id number] CT LUMBAR SPINE with IV contrast. HISTORY: post op infection TECHNIQUE: Contiguous postcontrast imaging imaging performed from T12 through the mid sacral level. B one and soft tissue windows reviewed. Sagittal and coronal reformats are submitted and reviewed. Contrast: Omnipaque 300; 95 cc IV. DLP: 2959.[address] scans at [facility] use at least one of these dose optimization techniques: automat ed exposure control; mA and/or kV adjustment per patient size (includes targeted exams where dose is matched to clinical indication); or iterative reconstruction. COMPARISON: 08/26/2020 Extensive prior spinal surgery with posterior fusion from T11 into the sacrum. Bilateral pedicles jarett s and screws extend from T11 to S2. Large laminectomy defects from L2 to L5. Interbody disc spacers a t L4-5 and L5-S1. No lucency around the hardware. L3 anterolisthesis by 9 mm. Disc spaces are narrowe d throughout most significant at L2-3. No significant change in vertebral body height. There is a large postoperative fluid collection within the laminectomy defects. The largest component appears to be centered at L3. There is mild peripheral enhancement. There are a few small foci of ai r very superficial in this collection which may be due to recent instrumentation or infection. Postop erative collection begins at the mid L2 level and extends inferiorly to the laminectomy defects to at least the mid L5 vertebral body. Collection does abut the posterior thecal sac at several levels. Co llection measures at least 5.4 cm transversely and 5.4 cm anterior posterior. As compared to the prio r study there has been an increase in size. No obvious destruction of the bone. There is osteopenia a nd postsurgical changes from the laminectomies. At L1-2 there is a moderate-sized LEFT subarticular disc protrusion. Unchanged since the prior study. CT/CT lumbar spine w con [id number] IMPRESSION: 1. Large fluid collection with enhancing loredo centered in the laminectomy def ects from L2 to L5. As compared to 08/26/2020 the amount of fluid has increased a nd there are now a few small foci of air posteriorly which may be due to recent instrumentation and attempted aspiration or infection. This may be a normal po stoperative collection/seroma or abscess. 2. The extensive hardware extending from T11 through the sacrum demonstrates n o interval change.
[2020-09-10 09:43] VITALS: BP 118/66; PULSE 120; RESP 18; TEMP 36.7; O2SAT 98
[2020-09-10 10:17] LABS: Basophils % 0.3 %; Eosinophils # 0.1 10^3/uL (0.0-0.8); Eosinophils % 0.4 %; Hematocrit 26.9 % (37.0-47.0); Hemoglobin 8.5 g/dL (11.5-15.3); Lymphocytes # 1.2 10^3/uL (0.8-4.8); Lymphocytes % 8.2 %; Mean Corpuscular HGB Conc 31.6 g/dL (30.0-36.0); Mean Corpuscular Hemoglobin 27.8 pg (28.0-34.0); Mean Corpuscular Volume 87.9 fL (81-99); Monocytes # 1.2 10^3/uL (0.2-0.9); Monocytes % 8.1 %; Neutrophils # 11.25 10^3/uL (1.8-7.7); Neutrophils % 79.5 %; Nucleated Red Blood Cells % 0 %; Platelet Count 260 10^3/cmm (130-400); Red Blood Count 3.06 10^6/uL (4.1-5.3); Red Cell Distribution Width 15.2 % (12.1-15.1); White Blood Count 14.1 10^3/uL (4.0-10.0)
[2020-09-10] MEDS: iohexol 300 mg/mL 100 mL Btl IV (10:22)
[2020-09-10] MEDS: ondansetron 2 mg/ML SDV 2 mL 4 MG IVP (10:34)
[2020-09-10 10:36] LABS: Creatine Phosphokinase 21 U/L (26-192); Lipase 15 U/L (13-60)
[2020-09-10 10:37] LABS: Lactic Sepsis W/Reflex 1.7 mmol/L (0.5-2.2)
[2020-09-10 10:45] LABS: Magnesium 1.9 mg/dL (1.7-2.3)
--- NOTE | 2020-09-10 10:47 | W.ED.BACK ---
HPI - Back Pain/Injury General: Chief Complaint: Back Pain/Injury Stated Complaint: LOW BACK PAIN, POSSIBLE SEPSIS Time Seen by Provider: 09/10/20 09:29 History of Present Illness: HPI Narrative: 69-year-old female status post lumbar instrumentation. Surgery was done approximately 1 month ago. Postop we seen her in the emergency room she had a seroma formed but no sign of infection today she returned she been seen by her primary care doctor's office and there was a concern about sepsis she was hypotensive and tachycardic she is brought in by ambulance she did receive some fluid by time she arrived her blood pressure is 118 systolic however her heart rate was still in the 120s. She is continued to have drainage although now it is more serosanguineous from the wound in her back. She denies any fevers generally she is feeling very poorly still having significant middle back pain. MD elicited complaint: back pain Onset (ago): week(s) Timing: constant Severity: severe Similar Symptoms Previously: Yes Quality: sharp Location: lumbar spine Exacerbating factors: movement Relieving factors: immobilization Context: other (Recent surgery) Associated symptoms: Reports arthralgias, chills, difficulty walking, fatigue, myalgias, nausea, tingling/numbness/burning, urinary urgency and weakness; Deny abdominal pain, change in bowel habits, dysuria, fecal incontinence, fever(s), hematuria, numbness, syncope, urinary frequency or vomiting Treatments prior to arrival: prescription analgesics Review of Systems Const: Reports: chills and fatigue; Denies: fever(s) ENMT: Denies: throat pain, ear or mastoid pain, nasal discharge or nasal congestion Card: Denies: syncope Resp: Denies: dyspnea, productive cough or non-productive cough GI: Reports: nausea; Denies: abdominal pain, vomiting, fecal incontinence or change in bowel habits : Reports: urinary urgency; Denies: dysuria or hematuria Skin/Breast: Denies: rash or pruritus Neuro: Reports: difficulty walking PFSH ED PFSH: Medical History Accelerated essential hypertension Diabetes Gastroesophageal reflux High cholesterol History of revision of total replacement of left knee joint Surgical History H/O: hysterectomy History of back surgery History of carpal tunnel surgery of left wrist History of carpal tunnel surgery of right wrist History of total left knee replacement History of total right knee replacement Hx of repair of rotator cuff Family History Mother Diabetes Hypertension CAD (coronary artery disease) Grandmother Stroke Social History Smoking and tobacco status: never smoked Alcohol intake: never Physical Exam Const: COMMON NORMALS: no acute distress GENERAL APPEARANCE: cooperative and comfortable ORIENTATION/CONSCIOUSNESS: Yes awake, Yes oriented to person, Yes oriented to place and Yes oriented to time HENMT: COMMON NORMALS: normocephalic, atraumatic and hearing grossly normal bilaterally HEAD & SCALP: normocephalic and atraumatic Neck/C-Spine: COMMON NORMALS: no JVD Resp: COMMON NORMALS: normal respiratory effort, No retractions, No use of accessory muscles and clear to auscultation bilaterally AUSCULTATION: clear to auscultation bilaterally Cardio: COMMON NORMALS: no JVD, regular rate, regular rhythm and No murmurs present (Cardio) RATE: regular rate RHYTHM: regular rhythm GI: COMMON NORMALS: Soft to palpation and No hepatosplenomegaly present AUSCULTATION: Yes normoactive bowel sounds PALPATION: Yes Soft to palpation, No Tenderness to palpation present (GI), No Guarding due to palpation present (GI) and Yes No hepatosplenomegaly present Back/Pelvis: OTHER: Externally wound looks good there still are few small areas that are dehisced is exquisitely tender to palpation no major dehiscence no induration or erythema superficially. Extremity: COMMON NORMALS: normal to inspection, capillary refill normal, no clubbing, cyanosis or edema, no calf tenderness and no pedal edema Neuro: SENSORIUM/ORIENTATION: Yes oriented to person, Yes oriented to place and Yes oriented to time Skin: COMMON NORMALS: no rashes or lesions noted GENERAL SKIN EXAM: no rashes or lesions noted Course Vital Signs: Vital signs: Vital Signs Temperature 98.0 F 09/10/20 09:43 Pulse Rate 120 H 09/10/20 09:43 Respiratory Rate 18 09/10/20 09:43 Blood Pressure 118/66 09/10/20 09:43 Pulse Oximetry 98 09/10/20 09:43 MDM - Back Pain/Injury MDM Narrative: Medical decision making narrative: CT suggestive of infectious or now air pockets in the previous seroma additionally there is inflammation along the loredo of this. We'll start her on antibiotics she has been appropriately cultured will admit to the hospitalist consult Dr. Wesley Lab Data: Labs: Lab Results 09/10/20 09/10/20 09/10/20 Range/Units 10:08 10:08 10:08 WBC 14.1 H (4.0-10.0) 10^3/ uL RBC 3.06 L (4.1-5.3) 10^6/u L Hgb 8.5 L (11.5-15.3) g/dL Hct 26.9 L (37.0-47.0) % MCV 87.9 (81-99) fL MCH 27.8 L (28.0-34.0) pg MCHC 31.6 (30.0-36.0) g/dL RDW 15.2 H (12.1-15.1) % Plt Count 260 (130-400) 10^3/c mm MPV 8.0 (7.4-10.4) fL Neut % (Auto) 79.5 % Lymph % (Auto) 8.2 % [place] % (Auto) 8.1 % Eos % (Auto) 0.4 % Baso % (Auto) 0.3 % Neut # (Auto) 11.25 H (1.8-7.7) 10^3/u L Lymph # (Auto) 1.2 (0.8-4.8) 10^3/u L [place] # (Auto) 1.2 H (0.2-0.9) 10^3/u L Eos # (Auto) 0.1 (0.0-0.8) 10^3/u L Baso # (Auto) 0.0 (0.0-0.1) 10^3/u L Nucleated RBC % (a uto) 0 % Nucleated RBCs # 0.0 /100WBC Lactic Acid 1.7 (0.5-2.2) mmol/L Magnesium 1.9 (1.7-2.3) mg/dL Creatine Kinase 21 L (26-192) U/L Lipase 15 (13-60) U/L Discharge Plan Discharge Patient Disposition: Admitted As Inpatient Clinical Impression: History of lumbar surgery, Complication, postoperative infection Condition: Stable Coding Level of Care Code ED Wheelchair Van 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
[2020-09-10 12:15] VITALS: BP 122/69; PULSE 111; RESP 30; O2SAT 99
[2020-09-10] MEDS: vancomycin 1,000 MG in sodium chloride 0.9% 250 ML 250 MG IV (12:30)
[2020-09-10 12:31] LABS: Add Urine Microscopic? NO
[2020-09-10 12:42] VITALS: BP 118/67; PULSE 111; RESP 27; O2SAT 99
[2020-09-10 12:50] LABS: Bilirubin Urine Neg (Negative); Blood Urine Neg (Negative); Glucose Urine UA Norm (Normal); Ketones Urine Negative (Negative); Leukocyte Esterase Urine Negative (Negative); Nitrate Urine Negative (Negative); Protein Urine Neg (Negative); Specific Gravity, Urine 1.005 (1.005-1.030); Sulfosalicylic Acid Urine Negative (Negative); Urine Appearance Clear (CLEAR); Urine Color Straw (Yellow); Urobilinogen Urine Norm (Negative); pH Urine 8 (5-7)
[2020-09-10 13:01] LABS: Alanine Aminotransferase 25 U/L (0-33); Albumin Level 3.1 g/dL (3.5-5.2); Alkaline Phosphatase 296 IU/L (35-105); Aspartate Amino Transferase 26 U/L (0-32); Blood Urea Nitrogen 20 mg/dL (8-23); Calcium 9.7 mg/dL (8.5-10.5); Carbon Dioxide 20 mmol/L (22-29); Chloride 97 mmol/L (98-107); Globulin 4.6 g/dL (1.3-4.6); Glucose 121 mg/dL (65-115); Osmolality Calculated 280 mOsm/kg (285-295); Sodium 133 mmol/L (136-145); Total Bilirubin 0.3 mg/dL (0.15-1.2); Total Protein 7.7 g/dL (6.6-8.7)
[2020-09-10 13:18] LABS: Anion Gap 20.5 (5-19); Potassium 4.5 mmol/L (3.5-5.1)
[2020-09-10 16:00] VITALS: BP 110/60; PULSE 117; RESP 18; TEMP 36.9; O2SAT 100
--- NOTE | 2020-09-10 17:32 | PM.CONSULT ---
Providers/Reason For Consult Consulting Physican/Specialty*: ortho spine Reason for Consult*: draining back wound Attending Physician: Itzel Feldman MD Primary Care Provider: Sydnie Gooden MD History of Present Illness History of Present Illness Inna Mohr 69-year-old female status post lumbar instrumentation. Surgery was done approximately 1 month ago. Postop we seen her in the emergency room she had a seroma formed but no sign of infection today she returned she been seen by her primary care doctor's office and there was a concern about sepsis she was hypotensive and tachycardic she is brought in by ambulance she did receive some fluid by time she arrived her blood pressure is 118 systolic however her heart rate was still in the 120s. She is continued to have drainage although now it is more serosanguineous from the wound in her back. She denies any fevers generally she is feeling very poorly still having significant middle back pain. MD elicited complaint: back pain Onset (ago): week(s) Timing: constant Severity: severe Similar Symptoms Previously: Yes Quality: sharp Location: lumbar spine Exacerbating factors: movement Relieving factors: immobilization Context: other (Recent surgery) Associated symptoms: Reports arthralgias, chills, difficulty walking, fatigue, myalgias, nausea, tingling/numbness/burning, urinary urgency and weakness; Deny abdominal pain, change in bowel habits, dysuria, fecal incontinence, fever(s), hematuria, numbness, syncope, urinary frequency or vomiting Treatments prior to arrival: prescription analgesics Review of Systems Const: Reports: chills and fatigue; Denies: fever(s) Eyes: Denies: photophobia ENMT: Denies: throat pain, enlarged tonsils, ear or mastoid pain, nasal discharge or nasal congestion Card: Denies: syncope Resp: Denies: dyspnea, productive cough or non-productive cough GI: Reports: nausea; Denies: abdominal pain, vomiting, fecal incontinence or change in bowel habits : Reports: urinary urgency; Denies: dysuria or hematuria Musc: Denies: joint warmth Skin/Breast: Denies: rash or pruritus Neuro: Reports: difficulty walking Meds/Allergies Home Medications and Allergies Home Medications Medication Instructions Recorded Confirmed Last Taken Type aspirin 81 mg tablet,delayed 81 mg PO DAILY@08 12/20/19 09/10/20 09/10/20 History release atorvastatin 40 mg tablet 40 mg PO DAILY@12/20/19 09/10/20 09/09/20 History meloxicam 15 mg tablet 15 mg PO DAILY@12/20/19 09/10/20 09/10/20 History pantoprazole 20 mg tablet,delayed 20 mg PO DAILY@12/20/19 09/10/20 09/10/20 History release gabapentin 100 mg PO BEDTIME@08/12/20 09/10/20 09/09/20 History glucosamine sulfate [Glucosamine] 500 mg PO DAILY@08/26/20 09/10/20 09/10/20 History lisinopril 20 mg PO DAILY@08/26/20 09/10/20 09/10/20 History tramadol 50 mg PO Q6H PRN #30 tab 08/26/20 09/10/20 Unknown Rx cyclobenzaprine 5 mg tablet 5 mg PO TID PRN #21 tab 09/02/20 09/10/20 Unknown Rx metformin 500 mg PO DAILY@09/10/20 09/10/20 09/10/20 History tizanidine 4 mg PO TID PRN 09/10/20 09/10/20 Unknown History Allergies Allergy/AdvReac Type Severity Reaction Status Date / Time hydrocodone Allergy ADR-Vomitin Verified 08/29/20 09:16 g PFSH Acute PFSH: Medical History Accelerated essential hypertension Diabetes Gastroesophageal reflux High cholesterol History of revision of total replacement of left knee joint Surgical History H/O: hysterectomy History of back surgery History of carpal tunnel surgery of left wrist History of carpal tunnel surgery of right wrist History of total left knee replacement History of total right knee replacement Hx of repair of rotator cuff Family History Mother Diabetes Hypertension CAD (coronary artery disease) Grandmother Stroke Social History Smoking and tobacco status: never smoked Alcohol intake: never Vitals/I&O/Wt Last Vital Signs Temp 98.5 F 09/10/20 16:00 Pulse 117 H 09/10/20 16:00 Resp 18 09/10/20 16:00 BP 110/60 09/10/20 16:00 Pulse Ox 100 09/10/20 16:00 09/10/20 09/10/20 09/10/20 06:59 14:59 22:59 Intake Total 250 / 250 Balance 250 / 250 Physical Exam Narrative: EXAM NARRATIVE: CONSTITUTIONAL: The patient is a normal appearing [] in no apparent distress. GENERAL: Patient in no acute distress. CARDIAC: Regular rate and rhythm. CHEST: Normal inspiratory effort, normal respiratory rate. ABDOMEN: Soft and nontender. SKIN: Clear, warm and intact. NEURO?PSYCH: The patient is alert and oriented to person, place and time. Sensorv /SILT Motor StrengthShoulder abduction C5 5/5Wrist extension C6 5/5Elbow extension C7 5/5Hand Emt C8 5/5Finger abduction T15/5 Radial/ Ulnar/ Median n intact LowerSensory (SILT)Motor StrengthHin flexion L2/3Ant/inner thigh 5/5Hip adduction L2/3 5/5Knee extension L4 Lat thigh, 5/5Toe dorsiflexion L5 5/5Ankle dorsiflexion L5/ [id number] flexion S1 5/5 DTRBleeps 2+Triceps 2+Brachioradialis 2+Patellar 2+Achilles 2+ MUSCULOSKELETAL: [] UPPEREXTREMITIES: The patient had full active ROM in fingers, wrist, elbow, and shoulder. The patient demonstrated ability to fully flex/extend/abduct/adduct fingers, make ok sign, cross 2nd/3rd digits, extend 1st digit fully.. Radial pulse 2+, CR<2 seconds. LOWER EXTREMITIES: Pt has full, active ROM of toes, ankle, knee, and hip. Dorsalis pedis/posterior tibialis pulses 2+, CR<2 seconds. SPINE: Skin warm, dry, intact. Data Micro: Micro: Microbiology 09/10/20 10:12 Blood Culture - Pr eliminary Blood SPECIMEN [facility] JEF 09/10/20 10:08 Blood Culture - Pr eliminary Blood SPECIMEN [facility] A&P Assessment and plan (1) History of lumbar surgery: Status: Acute (2) Complication, postoperative infection: Status: Acute Additional A&P Information plan to take to OR tomorrow for washout and exploration Coding Level of Care Code Acute Cable Inspector for Chg Fwd Diagnoses History of lumbar surgery Z98.890 Complication, postoperative infection T81.40XA
--- NOTE | 2020-09-10 17:42 | P.HP_ITS ---
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 Pst op course notable for development of seroma followed as oupatient, went for follow up with PCP today and noted to be hypotensive and tachycardic, and sent to ER. CT imaging of the back with concern for infected seroma vs abscess. Plan for OR likely tomorrow. EKG with sinus tachycardia, BP systolic 90s upon arrival, improved with IVF, Hb stable from recent admission. Started on empric abx Review of Systems 2 General: Reports: 10 or more systems reviewed and unremarkable except in HPI and below Const: Denies: fever(s), chills or body aches Eyes: Denies: change in vision, blurry vision or photophobia ENMT: Reports: hoarseness; Denies: throat pain, enlarged tonsils, odynophagia or nasal congestion Card: Denies: chest pain, palpitations, irregular heart rhythm, edema, swelling of feet/ankles, lightheadedness, pre-syncope, dyspnea on exertion or orthopnea Resp: Denies: dyspnea, productive cough, non-productive cough, wheezing, stridor, pain on inspiration, change in phlegm color, hemoptysis or chest congestion GI: Denies: abdominal pain, nausea, vomiting, hematemesis, coffee ground emesis, dysphagia, heartburn, diarrhea, constipation, GI cramping, change in stool character, hematochezia or melena : Denies: flank pain, difficulty voiding, dysuria, urinary frequency, urinary urgency, urinary hesitancy or hematuria Musc: Denies: neck pain, back pain, extremity pain, joint swelling, joint warmth or deformity Neuro: Denies: headache(s), numbness in extremities, weakness in extremities, sensory changes, difficulty walking, frequent falls, dizziness, vertigo, behavioral changes, Slurred speech present or seizure-like activity Psych: Denies: anxiety, depression, suicidal ideation or homicidal ideation Endo: Denies: polyuria, polydipsia, tired all the time, cold intolerance or hot flashes [place]/Lymph: Denies: easy bruising or easy bleeding Medications/Allergies Home Medications Medication Instructions Recorded Confirmed Last Taken Type aspirin 81 mg tablet,delayed 81 mg PO DAILY@12/20/19 09/10/20 09/10/20 History release atorvastatin 40 mg tablet 40 mg PO DAILY@12/20/19 09/10/20 09/09/20 History meloxicam 15 mg tablet 15 mg PO DAILY@12/20/19 09/10/20 09/10/20 History pantoprazole 20 mg tablet,delayed 20 mg PO DAILY@12/20/19 09/10/20 09/10/20 History release gabapentin 100 mg PO BEDTIME@08/12/20 09/10/20 09/09/20 History glucosamine sulfate [Glucosamine] 500 mg PO DAILY@08/26/20 09/10/20 09/10/20 History lisinopril 20 mg PO DAILY@08/26/20 09/10/20 09/10/20 History tramadol 50 mg PO Q6H PRN #30 tab 08/26/20 09/10/20 Unknown Rx cyclobenzaprine 5 mg tablet 5 mg PO TID PRN #21 tab 09/02/20 09/10/20 Unknown Rx metformin 500 mg PO DAILY@09/10/20 09/10/20 09/10/20 History tizanidine 4 mg PO TID PRN 09/10/20 09/10/20 Unknown History Allergies Allergy/AdvReac Type Severity Reaction Status Date / Time hydrocodone Allergy ADR-Vomitin Verified 08/29/20 09:16 g PFSH Acute PFSH: Medical History Accelerated essential hypertension Diabetes Gastroesophageal reflux High cholesterol History of revision of total replacement of left knee joint Surgical History H/O: hysterectomy History of back surgery History of carpal tunnel surgery of left wrist History of carpal tunnel surgery of right wrist History of total left knee replacement History of total right knee replacement Hx of repair of rotator cuff Family History Mother Diabetes Hypertension CAD (coronary artery disease) Grandmother Stroke Social History Smoking and tobacco status: never smoked Alcohol intake: never Vitals/I&O/Wt Last Vital Signs Temp 98.5 F 09/10/20 16:00 Pulse 117 H 09/10/20 16:00 Resp 18 09/10/20 16:00 BP 110/60 09/10/20 16:00 Pulse Ox 100 09/10/20 16:00 09/10/20 09/10/20 09/10/20 06:59 14:59 22:59 Intake Total 250 / 250 Balance 250 / 250 Physical Exam Narrative: EXAM NARRATIVE: General: No acute distress, AO x3 HEENT: PERRLA, pupils bilaterally equal and reactive, pallors not present Chest: Normal vesicular breath sounds, no added sounds, equal good air entry bilaterally CVS: S1-S2 regular, no murmurs, no tachycardia, no gallops, no rubs Abdomen: Soft, nontender, no organomegaly, bowel sounds present Neuro: No focal deficits, no facial deformity, AO x3, power 5/5 in all limbs Data : 09/10/20 10:08 09/10/20 09:30 Micro: Microbiology 09/10/20 10:12 Blood Culture - Preliminary Blood SPECIMEN COLLECTED 09/10/20 10:08 Blood Culture - Preliminary Blood SPECIMEN COLLECTED Laboratory Results WBC 14.1 10^3/uL (4.0-10.0) H 09/10/20 10:08 RBC 3.06 10^6/uL (4.1-5.3) L 09/10/20 10:08 Hgb 8.5 g/dL (11.5-15.3) L 09/10/20 10:08 Hct 26.9 % (37.0-47.0) L 09/10/20 10:08 MCV 87.9 fL (81-99) 09/10/20 10:08 MCH 27.8 pg (28.0-34.0) L 09/10/20 10:08 MCHC 31.6 g/dL (30.0-36.0) 09/10/20 10:08 RDW 15.2 % (12.1-15.1) H 09/10/20 10:08 Plt Count 260 10^3/cmm (130-400) 09/10/20 10:08 MPV 8.0 fL (7.4-10.4) 09/10/20 10:08 Neut % (Auto) 79.5 % 09/10/20 10:08 Lymph % (Auto) 8.2 % 09/10/20 10:08 [place] % (Auto) 8.1 % 09/10/20 10:08 Eos % (Auto) 0.4 % 09/10/20 10:08 Baso % (Auto) 0.3 % 09/10/20 10:08 Neut # (Auto) 11.25 10^3/uL (1.8-7.7) H 09/10/20 10:08 Lymph # (Auto) 1.2 10^3/uL (0.8-4.8) 09/10/20 10:08 [place] # (Auto) 1.2 10^3/uL (0.2-0.9) H 09/10/20 10:08 Eos # (Auto) 0.1 10^3/uL (0.0-0.8) 09/10/20 10:08 Baso # (Auto) 0.0 10^3/uL (0.0-0.1) 09/10/20 10:08 Nucleated RBC % (auto) 0 % 09/10/20 10:08 Nucleated RBCs # 0.0 /100WBC 09/10/20 10:08 Sodium 133 mmol/L (136-145) L 09/10/20 09:30 Potassium 4.5 mmol/L (3.5-5.1) 09/10/20 09:30 Chloride 97 mmol/L (98-107) L 09/10/20 09:30 Carbon Dioxide 20 mmol/L (22-29) L 09/10/20 09:30 Anion Gap 20.5 (5-19) H 09/10/20 09:30 BUN 20 mg/dL (8-23) 09/10/20 09:30 Creatinine 0.7 mg/dL (0.5-0.9) 09/10/20 09:30 GFR Calculation 83.0 mL/min (90-130) L 09/10/20 09:30 Glucose 121 mg/dL (65-115) H 09/10/20 09:30 Calculated Osmolality 280 mOsm/kg (285-295) L 09/10/20 09:30 Lactic Acid 1.7 mmol/L (0.5-2.2) 09/10/20 10:08 Calcium 9.7 mg/dL (8.5-10.5) 09/10/20 09:30 Magnesium 1.9 mg/dL (1.7-2.3) 09/10/20 10:08 Total Bilirubin 0.3 mg/dL (0.15-1.2) 09/10/20 09:30 AST 26 U/L (0-32) 09/10/20 09:30 ALT 25 U/L (0-33) 09/10/20 09:30 Alkaline Phosphatase 296 IU/L (35-105) H 09/10/20 09:30 Creatine Kinase 21 U/L (26-192) L 09/10/20 10:08 Total Protein 7.7 g/dL (6.6-8.7) 09/10/20 09:30 Albumin 3.1 g/dL (3.5-5.2) L 09/10/20 09:30 Globulin 4.6 g/dL (1.3-4.6) 09/10/20 09:30 Lipase 15 U/L (13-60) 09/10/20 10:08 Urine Color Straw (Yellow) 09/10/20 12:10 Urine Appearance Clear (CLEAR) 09/10/20 12:10 Urine pH 8 (5-7) H 09/10/20 12:10 Ur Specific [place] 1.005 (1.005-1.030) 09/10/20 12:10 Urine Protein Neg (Negative) 09/10/20 12:10 Urine Glucose (UA) Norm (Normal) 09/10/20 12:10 Urine Ketones Negative (Negative) 09/10/20 12:10 Urine Blood Neg (Negative) 09/10/20 12:10 Urine Nitrate Negative (Negative) 09/10/20 12:10 Urine Bilirubin Neg (Negative) 09/10/20 12:10 Prot Sulfosalicylic Acd Negative (Negative) 09/10/20 12:10 Urine Urobilinogen Norm mg/dL (Negative) 09/10/20 12:10 Ur Leukocyte Esterase Negative (Negative) 09/10/20 12:10 Impressions Chest X-Ray 09/10/20 09:29 IMPRESSION: No acute cardiopulmonary abnormality. Lumbar Spine CT 09/10/20 09:31 IMPRESSION: 1. Large fluid collection with enhancing loredo centered in the laminectomy defects from L2 to L5. As compared to 08/26/2020 the amount of fluid has increased and there are now a few small foci of air posteriorly which may be due to recent instrumentation and attempted aspiration or infection. This may be a normal postoperative collection/seroma or abscess. 2. The extensive hardware extending from T11 through the sacrum demonstrates no interval change. A&P Assessment and plan (1) Sepsis: present on admission meets criteria by way of tachycardia and leukocytosis empiric zosynb and vanc ESR and CRP with am labs ortho consult with Dr. Wesley, likely OR in am Status: Acute Qualifiers: Sepsis type: sepsis due to unspecified organism Sepsis acute organ dysfunction status: unspecified Qualified Code(s): A41.9 - Sepsis, unspecified organism (2) Complication, postoperative infection: unclear extent, awaiting ortho assessment Status: Acute Qualifiers: Encounter type: initial encounter Postoperative infection type: unspecified type Qualified Code(s): T81.40XA - Infection following a procedure, unspecified, initial encounter (3) Hypertension: hold antihypertensives for now Status: Acute Qualifiers: Hypertension type: essential hypertension Qualified Code(s): I10 - Essential (primary) hypertension (4) Sinus tachycardia: monitor with IVF Status: Acute Additional A&P Information DM: Insulin sliding scale COVID PCR screen for likely OR DVt ppx: lovenox to start post surgery Full code Attestations Medical Necessity Statement*: >2midnight anticipated for iv abx, likely OR intervention Coding Level of Care Code Acute Inspection Machine Tender for Chg Fwd Diagnoses Sepsis A41.9 Sepsis type: sepsis due to unspecified organism Sepsis acute organ dysfunction status: unspecified Complication, postoperative infection T81.40XA Encounter type: initial encounter Postoperative infection type: unspecified type Hypertension I10 Hypertension type: essential hypertension Sinus tachycardia R00.0
[2020-09-10 18:22] LABS: Glucose Point of Care 149 mg/dL (70-110)
[2020-09-10] MEDS: sodium chloride 0.9% 500 ML 100 ML IV (18:26)
[2020-09-10] MEDS: piperacillin-tazobactam 3.375 GM in sodium chloride 0.9% (plus) 50 ML IV (19:31)
[2020-09-10 19:59] VITALS: BP 101/54; PULSE 112; RESP 18; TEMP 37.1; O2SAT 97
[2020-09-10 20:40] LABS: Glucose Point of Care 123 mg/dL (70-110)
[2020-09-10] MEDS: atorvastatin 40 mg Tablet PO (20:45)
[2020-09-10] MEDS: gabapentin 100 mg Capsule PO (20:45)
[2020-09-10] MEDS: acetaminophen 325 mg Tablet 650 MG PO (22:29)
[2020-09-10 23:00] LABS: Procalcitonin 0.17 ng/mL (0-0.5)
[2020-09-11] VITALS (17 sets, daily range): BP systolic 95–147; BP diastolic 57–79; PULSE 78–113; RESP 12–19; TEMP 36.3–37.2; O2SAT 95–100
[2020-09-11] MEDS: piperacillin-tazobactam 3.375 GM in sodium chloride 0.9% (plus) 50 ML IV ×2 (02:32→17:22)
[2020-09-11 02:37] LABS: Basophils % 0.3 %; Eosinophils # 0.1 10^3/uL (0.0-0.8); Eosinophils % 0.9 %; Hematocrit 25.1 % (37.0-47.0); Hemoglobin 7.9 g/dL (11.5-15.3); Lymphocytes # 1.4 10^3/uL (0.8-4.8); Lymphocytes % 11.6 %; Mean Corpuscular HGB Conc 31.5 g/dL (30.0-36.0); Mean Corpuscular Hemoglobin 27.8 pg (28.0-34.0); Mean Corpuscular Volume 88.4 fL (81-99); Mean Platelet Volume 7.8 fL (7.4-10.4); Monocytes % 8.3 %; Neutrophils # 8.95 10^3/uL (1.8-7.7); Neutrophils % 74.6 %; Nucleated Red Blood Cells % 0 %; Platelet Count 232 10^3/cmm (130-400); Red Blood Count 2.84 10^6/uL (4.1-5.3); Red Cell Distribution Width 15.4 % (12.1-15.1)
[2020-09-11 02:53] LABS: Alanine Aminotransferase 22 U/L (0-33); Albumin Level 2.5 g/dL (3.5-5.2); Alkaline Phosphatase 231 IU/L (35-105); Anion Gap 16.3 (5-19); Aspartate Amino Transferase 24 U/L (0-32); Blood Urea Nitrogen 19 mg/dL (8-23); Carbon Dioxide 22 mmol/L (22-29); Chloride 104 mmol/L (98-107); Globulin 3.6 g/dL (1.3-4.6); Glomerular Filtration Rate 71.1 mL/min (90-130); Glucose 106 mg/dL (65-115); Osmolality Calculated 289 mOsm/kg (285-295); Potassium 4.3 mmol/L (3.5-5.1); Sodium 138 mmol/L (136-145); Total Bilirubin 0.3 mg/dL (0.15-1.2); Total Protein 6.1 g/dL (6.6-8.7)
--- NOTE | 2020-09-11 02:53 | PC.NURSE ---
Covid swab collected and to lab at 0230 09/11/2020
[2020-09-11 03:13] LABS: Erythrocyte Sedimentation Rate > 120 mm/hr (0-15)
[2020-09-11 03:15] LABS: C Reactive Protein 320.7 mg/L (0.0-4.9)
--- NOTE | 2020-09-11 06:32 | PC.NURSE ---
Call received patirnt to go to surgery shortly. Hibiclens wipes applied, dentures and glasses removed and in patients room.
[2020-09-11 06:41] LABS: Glucose Point of Care 99 mg/dL (70-110)
--- NOTE | 2020-09-11 08:31 | PC.NURSE ---
Taken to preop via bed.
--- NOTE | 2020-09-11 08:45 | ANES.PREANE2 ---
Pre-Anesthetic Assessment Pre-Anesthetic Assessment: Height/Weight: Height 1.73 m Temp Pulse Resp BP Pulse Ox 97.9 F 110 H 16 125/77 98 09/11/20 07:12 09/11/20 08:38 09/11/20 08:38 09/11/20 08:38 09/11/20 08:38 Preop Diagnosis: draining back wound Proposed Procedure: Operation Date: 09/11/20 15:10 Proposed Procedures p Incision & Drainage OF BACK(Not Applicable) - Marcello Wesley DO Familial anesthetic complications: PONV - will place scopolamine patch Was Beta Danny taken within 24 hours: N/A Was Clonidine taken within 24 hours: N/A Last intake: Intake Last Liquid Date 09/10/20 Last Liquid Time 23:00 Last Solid Date 09/10/20 Last Solid Time 17:30 Social: Social History: No alcohol and No tobacco Exam: Pre-Anes Outpt Exam: alert, oriented x 3, clear to auscultation bilaterally and regular rate & rhythm Airway: Cervical ROM: WNL MP: 3 Dentition: False CV/HEM: CV/HEM: Anemia and HTN Anesthetic Plan: ASA status: 2 Anesthesia: General Risk of > 500 ml blood loss (7ml/kg in children): No Meds/Allergies Current Medications: Current Medications Generic Name Dose Route Start Last Admin Trade Name Freq PRN Reason Stop Dose Admin Acetaminophen 650 mg 09/10/20 13:16 09/10/20 22:29 Acetaminophen 32 5 Mg Tablet PO 650 mg Q6H PRN Administration Mild/Mod Pain Or Temp >/= 101 Aspirin 81 mg 09/11/20 08:00 09/11/20 08:16 Aspirin 81 Mg Ec Tablet PO Not Given DAILY@08 [facility] Atorvastatin Calci um 40 mg 09/10/20 20:00 09/10/20 20:45 Atorvastatin 40 Mg Tablet PO 40 mg DAILY@20 [facility] Administration Gabapentin 100 mg 09/10/20 20:00 09/10/20 20:45 Gabapentin 100 M g Capsule PO 100 mg BEDTIME@20 [facility] Administration Piperacillin Sod/T azobactam 50 mls @ 12.5 mls /hr 09/10/20 18:00 09/11/20 07:59 Sod 3.375 gm/ So dium Chloride IV Infused Q8H [facility] Infusion Protocol Sodium Chloride 500 mls @ 100 mls /hr 09/10/20 17:45 09/11/20 08:00 Sodium Chloride 0.9% IV Infused .Q5H [facility] Infusion Insulin Aspart 0 unit 09/10/20 18:00 09/11/20 08:16 Insulin Aspart 1 00 Unit/1 Ml SUBCUT Not Given WM&BEDTIME [facility] Protocol Pantoprazole Sodiu m 40 mg 09/11/20 08:00 09/11/20 08:[address] 40 Mg Tablet PO Not Given DAILY@08 [facility] PFSH Anesthesia PFSH: Medical History Accelerated essential hypertension Diabetes Gastroesophageal reflux High cholesterol History of revision of total replacement of left knee joint Surgical History H/O: hysterectomy History of back surgery History of carpal tunnel surgery of left wrist History of carpal tunnel surgery of right wrist History of total left knee replacement History of total right knee replacement Hx of repair of rotator cuff Family History Mother Diabetes Hypertension CAD (coronary artery disease) Grandmother Stroke Social History Smoking and tobacco status: never smoked Alcohol intake: never Data Anesthesia CBC & Chem 7: 09/11/20 02:30 09/11/20 02:30 Other Labs: Laboratory Results - last 48 hr 09/10/20 09/10/20 09/10/20 09:30 09:30 10:08 WBC 14.1 H RBC 3.06 L Hgb 8.5 L Hct 26.9 L MCV 87.9 MCH 27.8 L MCHC 31.6 RDW 15.2 H Plt Count 260 MPV 8.0 Neut % (Auto) 79.5 Lymph % (Auto) 8.2 [place] % (Auto) 8.1 Eos % (Auto) 0.4 Baso % (Auto) 0.3 Neut # (Auto) 11.25 H Lymph # (Auto) 1.2 [place] # (Auto) 1.2 H Eos # (Auto) 0.1 Baso # (Auto) 0.0 Nucleated RBC % (auto) 0 Nucleated RBCs # 0.0 ESR Sodium 133 L Potassium 4.5 Chloride 97 L Carbon Dioxide 20 L Anion Gap 20.5 H BUN 20 Creatinine 0.7 GFR Calculation 83.0 L Glucose 121 H POC Glucose Calculated Osmolality 280 L Lactic Acid Calcium 9.7 Magnesium Total Bilirubin 0.3 AST 26 ALT 25 Alkaline Phosphatase 296 H Creatine Kinase C-Reactive Protein Total Protein 7.7 Albumin 3.1 L Globulin 4.6 Lipase Procalcitonin 0.17 Urine Color Urine Appearance Urine pH Ur Specific [place] Urine Protein Urine Glucose (UA) Urine Ketones Urine Blood Urine Nitrate Urine Bilirubin Prot Sulfosalicylic Acd Urine Urobilinogen Ur Leukocyte Esterase 09/10/20 09/10/20 09/10/20 10:08 10:08 12:10 WBC RBC Hgb Hct MCV MCH MCHC RDW Plt Count MPV Neut % (Auto) Lymph % (Auto) [place] % (Auto) Eos % (Auto) Baso % (Auto) Neut # (Auto) Lymph # (Auto) [place] # (Auto) Eos # (Auto) Baso # (Auto) Nucleated RBC % (auto) Nucleated RBCs # ESR Sodium Potassium Chloride Carbon Dioxide Anion Gap BUN Creatinine GFR Calculation Glucose POC Glucose Calculated Osmolality Lactic Acid 1.7 Calcium Magnesium 1.9 Total Bilirubin AST ALT Alkaline Phosphatase Creatine Kinase 21 L C-Reactive Protein Total Protein Albumin Globulin Lipase 15 Procalcitonin Urine Color Straw Urine Appearance Clear Urine pH 8 H Ur Specific [place] 1.005 Urine Protein Neg Urine Glucose (UA) Norm Urine Ketones Negative Urine Blood Neg Urine Nitrate Negative Urine Bilirubin Neg Prot Sulfosalicylic Acd Negative Urine Urobilinogen Norm Ur Leukocyte Esterase Negative 09/10/20 09/10/20 09/11/20 18:19 20:36 02:30 WBC 12.0 H RBC 2.84 L Hgb 7.9 L Hct 25.1 L MCV 88.4 MCH 27.8 L MCHC 31.5 RDW 15.4 H Plt Count 232 MPV 7.8 Neut % (Auto) 74.6 Lymph % (Auto) 11.6 [place] % (Auto) 8.3 Eos % (Auto) 0.9 Baso % (Auto) 0.3 Neut # (Auto) 8.95 H Lymph # (Auto) 1.4 [place] # (Auto) 1.0 H Eos # (Auto) 0.1 Baso # (Auto) 0.0 Nucleated RBC % (auto) 0 Nucleated RBCs # 0.0 ESR Sodium Potassium Chloride Carbon Dioxide Anion Gap BUN Creatinine GFR Calculation Glucose POC Glucose 149 H 123 H Calculated Osmolality Lactic Acid Calcium Magnesium Total Bilirubin AST ALT Alkaline Phosphatase Creatine Kinase C-Reactive Protein Total Protein Albumin Globulin Lipase Procalcitonin Urine Color Urine Appearance Urine pH Ur Specific [place] Urine Protein Urine Glucose (UA) Urine Ketones Urine Blood Urine Nitrate Urine Bilirubin Prot Sulfosalicylic Acd Urine Urobilinogen Ur Leukocyte Esterase 09/11/20 09/11/20 09/11/20 02:30 02:30 02:30 WBC RBC Hgb Hct MCV MCH MCHC RDW Plt Count MPV Neut % (Auto) Lymph % (Auto) [place] % (Auto) Eos % (Auto) Baso % (Auto) Neut # (Auto) Lymph # (Auto) [place] # (Auto) Eos # (Auto) Baso # (Auto) Nucleated RBC % (auto) Nucleated RBCs # ESR > 120 H Sodium 138 Potassium 4.3 Chloride 104 Carbon Dioxide 22 Anion Gap 16.3 BUN 19 Creatinine 0.8 GFR Calculation 71.1 L Glucose 106 POC Glucose Calculated Osmolality 289 Lactic Acid Calcium 9.0 Magnesium Total Bilirubin 0.3 AST 24 ALT 22 Alkaline Phosphatase 231 H Creatine Kinase C-Reactive Protein 320.7 H Total Protein 6.1 L D Albumin 2.5 L Globulin 3.6 Lipase Procalcitonin Urine Color Urine Appearance Urine pH Ur Specific [place] Urine Protein Urine Glucose (UA) Urine Ketones Urine Blood Urine Nitrate Urine Bilirubin Prot Sulfosalicylic Acd Urine Urobilinogen Ur Leukocyte Esterase 09/11/20 06:09 WBC RBC Hgb Hct MCV MCH MCHC RDW Plt Count MPV Neut % (Auto) Lymph % (Auto) [place] % (Auto) Eos % (Auto) Baso % (Auto) Neut # (Auto) Lymph # (Auto) [place] # (Auto) Eos # (Auto) Baso # (Auto) Nucleated RBC % (auto) Nucleated RBCs # ESR Sodium Potassium Chloride Carbon Dioxide Anion Gap BUN Creatinine GFR Calculation Glucose POC Glucose 99 Calculated Osmolality Lactic Acid Calcium Magnesium Total Bilirubin AST ALT Alkaline Phosphatase Creatine Kinase C-Reactive Protein Total Protein Albumin Globulin Lipase Procalcitonin Urine Color Urine Appearance Urine pH Ur Specific [place] Urine Protein Urine Glucose (UA) Urine Ketones Urine Blood Urine Nitrate Urine Bilirubin Prot Sulfosalicylic Acd Urine Urobilinogen Ur Leukocyte Esterase Micro: Microbiology 09/10/20 10:12 Blood Culture - Preliminary Blood SPECIMEN COLLECTED 09/10/20 10:08 Blood Culture - Preliminary Blood SPECIMEN COLLECTED Cardiac Studies: No Data to Display
[2020-09-11] MEDS: sodium chloride 0.9% 1,000 ML 30 ML IV (08:50)
[2020-09-11] MEDS: scopolamine 1.5 Patch 1 PATCH TRANSDERMA (09:18)
--- NOTE | 2020-09-11 09:22 | W.PM.OPSUD ---
Surgery/Procedure H&P Update DATE OF PROCEDURE: September 11, 2020 DATE H&P PERFORMED: 09/10/20 H&P UPDATE INFORMATION: I have reviewed H&P completed within last 30 days PREOP DIAGNOSIS: draining back wound PLANNED PROCEDURE: Operation Date: 09/11/20 15:10 Proposed Procedures p Incision & Drainage OF BACK(Not Applicable) - Marcello Wesley DO
[2020-09-11] MEDS: vancomycin 1,000 MG SDV 1000 MG XX (10:31)
--- NOTE | 2020-09-11 11:07 | P.OP_ITS ---
Operative Report Date of procedure: September 11, 2020 Pre-op Diagnosis: draining back wound Post-op diagnosis: same Procedure Done: I+D back wound deep down to bone Surgeon: Marcello Wesley Anesthesia: General Estimated blood loss (mL): 100 Procedure: I+D back wound deep down to bone Brought to the operative suite. After undergoing anesthesia was placed in the prone position all areas impingement were well-padded patient is prepped and draped in a sterile fashion. The skin incision was made using previous skin incision. The draining sinus was ellipsed out. Once this was taken out. The fascia was opened. Cerebellar placed. Cultures were then taken deep. The bone was then scraped with curettes rongeurs were used around the previous laminectomy site. There appeared to be bleeding around the placement of the L5- S1 cage. Surgi-Nuno was then packed into this area into the bleeding stopped. Once the bleeding was controlled wound was irrigated with saline. Once saline was irrigated out ensure that there is no bleeding. A deep drain was placed. The wound was closed in layered fashion. The Stratus fix 0 Vicryl suture was used for the thoracolumbar fascia and 2-0 Vicryl was used for the subcu skin. And then nylon was used for the skin. Sterile dressing was applied and patient was transferred to the PACU in stable condition.
--- NOTE | 2020-09-11 11:25 | P.PCN_ITS ---
PACU note PACU note: VSS, Good respiratory effort, report to HAND CIGAR MAKING SUPERVISOR Post-Anesthesia Exam: somnolent, arousable
--- NOTE | 2020-09-11 11:25 | PM.PACU ---
PACU note PACU note: VSS, Good respiratory effort, report to DYNAMICS AX TECHNICAL ARCHITECT Post-Anesthesia Exam: somnolent, arousable
--- NOTE | 2020-09-11 11:29 | SUR.PHASEI ---
1127- ORAL AIRWAY REMOVED, SIMPLE MASK IN PLACE AT 6LPM SAT 100%
[2020-09-11] MEDS: TRAMadol 50 mg Tablet PO ×2 (13:36→19:49)
--- NOTE | 2020-09-11 14:01 | P.PN_ITS ---
Subjective Subjective: Interval history: Patient underwent I&D of the deep back wound today, extension seen down to the bone. Discharge/cultures were taken and sent. Wound was scraped with curettes around previous laminectomy site. Patient tolerated the procedure well, EBL 100 cc. Vitals/I&O/Wt Last Vital Signs Temp 97.4 F L 09/11/20 11:35 Pulse 101 H 09/11/20 11:35 Resp 16 09/11/20 11:35 BP 135/71 09/11/20 11:35 Pulse Ox 98 09/11/20 11:35 09/10/20 09/11/20 09/11/20 22:59 06:59 14:59 Intake Total 490 / 490 50 / 540 751 / 751 Output Total Balance 490 / 490 50 / 540 726 / 726 Physical Exam Narrative: EXAM NARRATIVE: GEN: Awake, alert and oriented, no acute distress CVS: S1S2 N RS: CTA B/L Abd: Soft, nt/nd , bs+ PROFESSOR OF BUSINESS: no focal neuro deficits Data : 09/11/20 02:30 09/11/20 02:30 Micro: Microbiology 09/10/20 10:08 Blood Culture - Preliminary Blood NEGATIVE TO DATE 09/10/20 10:12 Blood Culture - Preliminary Blood ESR greater than 120, CRP 320 A&P Assessment and plan (1) Sepsis: present on admission meets criteria by way of tachycardia and leukocytosis Source of sepsis likely to be large fluid collection/likely abscess in the la minectomy bed extending L2-L5. Status post I&D in the OR today, inflammatory/infectious changes noted to be extending down to bone Culture taken today, currently awaited ESR elevated greater than 120, CRP 320 Concern also for infectious changes extending around spinal hardware Continue empiric zosyn and vancomycin for now, will narrow antibiotics based on culture results when they become available. Pain is currently controlled Status: Acute Qualifiers: Sepsis type: sepsis due to unspecified organism Sepsis acute organ dysfunction status: unspecified Qualified Code(s): A41.9 - Sepsis, unspecified organism (2) Complication, postoperative infection: Status: Acute Qualifiers: Encounter type: initial encounter Postoperative infection type: unsp ecified type Qualified Code(s): T81.40XA - Infection following a procedure, unspecified, initial encounter (3) Spinal abscess: Status: Acute (4) Sinus tachycardia: Start metoprolol 12.5 mg p.o. daily Status: Acute (5) Hypertension: hold antihypertensives for now Status: Acute Qualifiers: Hypertension type: essential hypertension Qualified Code(s): I10 - Essential (primary) hypertension Additional A&P Information DM: Insulin sliding scale COVID PCR screen for likely OR , pending DVT ppx: to be resumed pe surgical recommendations Full code Attestations Medical Necessity Statement*: Ongoing need for IV antibiotics, awaiting culture results to decide appropriate duration and choice of regimen, postop care Coding Level of Care Code Acute [employer] Supervisor for Chg Fwd Diagnoses Sepsis A41.9 Sepsis type: sepsis due to unspecified organism Sepsis acute organ dysfunction status: unspecified Complication, postoperative infection T81.40XA Encounter type: initial encounter Postoperative infection type: unspecified type Spinal abscess M46.20 Sinus tachycardia R00.0 Hypertension I10 Hypertension type: essential hypertension
[2020-09-11 16:54] LABS: Glucose Point of Care 172 mg/dL (70-110)
[2020-09-11] MEDS: sodium chloride 0.9% 1,000 ML 100 ML IV (17:20)
[2020-09-11] MEDS: docusate sodium 100 mg Capsule PO (17:21)
[2020-09-11] MEDS: lanolin oint 7 gm 1 APPLIC TOPICAL (19:06)
[2020-09-11] MEDS: artificial tears Op Soln 15 mL Btl 1 DROP EYE-BOTH (19:06)
[2020-09-11] MEDS: atorvastatin 40 mg Tablet PO (19:50)
--- NOTE | 2020-09-11 20:27 | ANE.PACU2 ---
Inpatient post-anesthesia follow up: Airway intact: Yes Vital signs: Temperature 98.3 F Pulse Rate [Monito r] 120 Pulse Rate 113 Respiratory Rate 18 Blood Pressure [Ri ght Arm] 118/66 Blood Pressure 110/67 Pulse Oximetry 95 Oxygen Delivery Me thod Room Air Oxygen Flow Rate 6 Fraction of Inspir ed Oxygen Hydration adequate: Yes Nausea and vomiting: No Pain level: 2 Mental status: Baseline
[2020-09-11] MEDS: gabapentin 100 mg Capsule PO (20:49)
[2020-09-11 20:57] LABS: Glucose Point of Care 157 mg/dL (70-110)
[2020-09-11] MEDS: tizanidine 4 mg Tablet PO (23:51)
[2020-09-11] MEDS: acetaminophen 325 mg Tablet 650 MG PO (23:55)
[2020-09-12] VITALS: BP 93/55; PULSE 89; RESP 18; TEMP 37; O2SAT 95
[2020-09-12] MEDS: TRAMadol 50 mg Tablet PO ×3 (01:57→18:02)
[2020-09-12] MEDS: piperacillin-tazobactam 3.375 GM in sodium chloride 0.9% (plus) 50 ML IV ×3 (01:58→18:02)
[2020-09-12] MEDS: sodium chloride 0.9% 1,000 ML 100 ML IV ×2 (04:38→14:38)
[2020-09-12 04:39] VITALS: BP 99/59; PULSE 82; RESP 18; TEMP 36.7; O2SAT 96
[2020-09-12 07:00] LABS: Glucose Point of Care 118 mg/dL (70-110)
[2020-09-12 07:37] VITALS: BP 106/88; PULSE 100; RESP 16; TEMP 37.1; O2SAT 99
[2020-09-12] MEDS: aspirin 81 mg EC Tablet PO (07:53)
[2020-09-12] MEDS: pantoprazole DR 40 mg Tablet PO (07:53)
--- NOTE | 2020-09-12 07:59 | PM.PN ---
Subjective Subjective: Interval history: pt feeling better today has weakness in her right leg POD#1 I+D Vitals/I&O/Wt Last Vital Signs Temp 98.8 F 09/12/20 07:37 Pulse 100 09/12/20 07:37 Resp 16 09/12/20 07:37 BP 106/88 09/12/20 07:37 Pulse Ox 99 09/12/20 07:37 09/11/20 09/12/20 09/12/20 22:59 06:59 14:59 Intake Total 50 / 801 1600 / 2401 50 / 50 Output Total 90 / 115 160 / 275 Balance -40 / 686 1440 / 2126 50 / 50 Physical Exam Narrative: EXAM NARRATIVE: Right leg weakness, Drain with about 120cc out decreasing Dressing completely dry Data : 09/11/20 02:30 09/11/20 02:30 Micro: Microbiology 09/11/20 11:30 Gram Stain - Final Back 09/10/20 10:08 Blood Culture - Preliminary Blood NEGATIVE TO DATE 09/10/20 10:12 Blood Culture - Preliminary Blood A&P Assessment and plan (1) History of lumbar surgery: POD#1 I+D spine d/c drain tomorrow Up with PT awaiting cultures Status: Acute Attestations Medical Necessity Statement*: awaiting cultures Coding Level of Care Code Acute Executive Secretary Social Welfare for Rafia Anguiano Diagnoses History of lumbar surgery Z98.890
[2020-09-12] MEDS: docusate sodium 100 mg Capsule PO ×2 (08:00→18:02)
[2020-09-12] MEDS: metoprolol succinate ER (24 HR) 25 mg Tablet 12.5 MG PO (08:00)
[2020-09-12 10:49] LABS: Glucose Point of Care 185 mg/dL (70-110)
[2020-09-12 11:31] VITALS: BP 126/76; PULSE 101; RESP 17; TEMP 37; O2SAT 100
[2020-09-12] MEDS: tizanidine 4 mg Tablet PO ×2 (11:34→21:36)
[2020-09-12] MEDS: acetaminophen 325 mg Tablet 650 MG PO (11:38)
[2020-09-12 14:13] LABS: Coronavirus Test Green County Not Detected
[2020-09-12 15:18] VITALS: BP 126/76; PULSE 101; RESP 16; TEMP 37; O2SAT 100
--- NOTE | 2020-09-12 16:59 | PM.PN ---
Subjective Subjective: Interval history: Complains of choking episode today while eating her lunch. States that a choking episode happened 2 days ago as well. Hemoglobin at 7.9. Leukocytosis at 12. Culture from the OR thus far showing mixed skin eladio, requested micro lab to work-up the specimen to entirety given that this is from a deep abscess. Medications: Reviewed: Yes Vitals/I&O/Wt Last Vital Signs Temp 98.6 F 09/12/20 15:18 Pulse 101 H 09/12/20 15:18 Resp 16 09/12/20 15:18 BP 126/76 09/12/20 15:18 Pulse Ox 100 09/12/20 15:18 09/12/20 09/12/20 09/12/20 06:59 14:59 22:59 Intake Total 1600 / 2401 1340 / 1340 50 / 1390 Output Total 160 / 275 225 / 225 Balance 1440 / 2126 1115 / 1115 50 / 1165 Physical Exam Narrative: EXAM NARRATIVE: GEN: Awake, alert and oriented, no acute distress CVS: S1S2 N RS: CTA B/L Abd: Soft, nt/nd , bs+ EXPERIMENTAL PREFLIGHT MECHANIC: no focal neuro deficits Data : 09/11/20 02:30 09/11/20 02:30 Micro: Microbiology 09/11/20 11:30 Gram Stain - Final Back Anaerobic Culture - Preliminary Wound Culture - Preliminary Coagulase negativ staphylococc 09/10/20 10:12 Blood Culture - Preliminary Blood Coagulase negativ staphylococc A&P Assessment and plan (1) Sepsis: present on admission now, now resolved meets criteria by way of tachycardia and leukocytosis Source of sepsis likely to be large fluid collection/likely abscess in the laminectomy bed extending L2-L5. Status post I&D in the OR today, inflammatory/infectious changes noted to be extending down to bone Culture taken in the OR, thus far with superficial skin eladio, requested micro lab to work-up to entirety. Would not be surprised if cultures remain negative as patient had been on an extended course of Bactrim since August 26, 2020, leukocytosis at this time at 22, now trending down with an IV antibiotic therapy ESR elevated greater than 120, CRP 320 Concern also for infectious changes extending around spinal hardware Continue empiric zosyn and vancomycin for now, will narrow antibiotics based on culture results when they become available. Anticipate prolonged antibiotic course of at least 6 weeks given complicated deep-seated infection extending down to bone and hardware with failure of outpatient antibiotic regimen with Bactrim. Pain is currently controlled Blood cultures 1 of 4+ for coag negative staph, likely to be contaminant Status: Acute Qualifiers: Sepsis type: sepsis due to unspecified organism Sepsis acute organ dysfunction status: unspecified Qualified Code(s): A41.9 - Sepsis, unspecified organism (2) Complication, postoperative infection: Status: Acute Qualifiers: Encounter type: initial encounter Postoperative infection type: unspecified type Qualified Code(s): T81.40XA - Infection following a procedure, unspecified, initial encounter (3) Spinal abscess: Status: Acute (4) Sinus tachycardia: Increase metoprolol to 25 mg p.o. daily Status: Acute (5) Hypertension: hold antihypertensives for now Status: Acute Qualifiers: Hypertension type: essential hypertension Qualified Code(s): I10 - Essential (primary) hypertension Additional A&P Information DM: Insulin sliding scale Patient reporting 2 episodes of choking during the admission, does not seem to have improved with change in consistency of the diet. Reports sensation of soreness since taking around the neck, will perform barium swallow tomorrow. DVT ppx: Start Lovenox if hemoglobin remains stable in the morning Full code Attestations Medical Necessity Statement*: ongoing need for iv abx, awaiting cx results from OR, PICC line placement Coding Level of Care Code Acute Credit Union Examiner for Chg Fwd Diagnoses Sepsis A41.9 Sepsis type: sepsis due to unspecified organism Sepsis acute organ dysfunction status: unspecified Complication, postoperative infection T81.40XA Encounter type: initial encounter Postoperative infection type: unspecified type Spinal abscess M46.20 Sinus tachycardia R00.0 Hypertension I10 Hypertension type: essential hypertension
[2020-09-12 17:08] LABS: Glucose Point of Care 89 mg/dL (70-110)
[2020-09-12] MEDS: vancomycin 1,000 MG in sodium chloride 0.9% 250 ML 250 MG IV (19:30)
[2020-09-12 19:43] VITALS: BP 139/77; PULSE 91; RESP 18; TEMP 36.9; O2SAT 98
[2020-09-12] MEDS: gabapentin 100 mg Capsule PO (20:05)
[2020-09-12] MEDS: atorvastatin 40 mg Tablet PO (20:05)
[2020-09-12 21:04] LABS: Glucose Point of Care 122 mg/dL (70-110)
[2020-09-13] VITALS: BP 102/62; PULSE 83; RESP 16; TEMP 36.5; O2SAT 94
[2020-09-13] MEDS: sodium chloride 0.9% 1,000 ML 100 ML IV ×2 (01:07→14:33)
[2020-09-13] MEDS: acetaminophen 325 mg Tablet 650 MG PO ×3 (03:14→14:31)
[2020-09-13] MEDS: piperacillin-tazobactam 3.375 GM in sodium chloride 0.9% (plus) 50 ML IV ×2 (03:15→11:28)
[2020-09-13 04:00] VITALS: BP 120/66; PULSE 94; RESP 18; TEMP 36.5; O2SAT 97
[2020-09-13 06:17] LABS: Basophils % 0.4 %; Eosinophils # 0.2 10^3/uL (0.0-0.8); Eosinophils % 1.7 %; Hematocrit 24.7 % (37.0-47.0); Hemoglobin 7.4 g/dL (11.5-15.3); Lymphocytes # 1.2 10^3/uL (0.8-4.8); Lymphocytes % 11.7 %; Mean Corpuscular Hemoglobin 27.4 pg (28.0-34.0); Mean Corpuscular Volume 91.5 fL (81-99); Mean Platelet Volume 8.2 fL (7.4-10.4); Monocytes # 0.7 10^3/uL (0.2-0.9); Monocytes % 7.4 %; Neutrophils # 7.07 10^3/uL (1.8-7.7); Neutrophils % 71.6 %; Nucleated Red Blood Cells % 0 %; Platelet Count 309 10^3/cmm (130-400); Red Cell Distribution Width 15.4 % (12.1-15.1); White Blood Count 9.9 10^3/uL (4.0-10.0)
[2020-09-13 06:31] LABS: Slide Review Slide Review Perform
[2020-09-13 06:32] LABS: Alanine Aminotransferase 23 U/L (0-33); Albumin Level 2.4 g/dL (3.5-5.2); Alkaline Phosphatase 235 IU/L (35-105); Aspartate Amino Transferase 33 U/L (0-32); Blood Urea Nitrogen 8 mg/dL (8-23); Calcium 8.7 mg/dL (8.5-10.5); Carbon Dioxide 22 mmol/L (22-29); Chloride 106 mmol/L (98-107); Globulin 3.6 g/dL (1.3-4.6); Glomerular Filtration Rate 158.3 mL/min (90-130); Glucose 84 mg/dL (65-115); Osmolality Calculated 284 mOsm/kg (285-295); Sodium 138 mmol/L (136-145); Total Bilirubin 0.2 mg/dL (0.15-1.2)
[2020-09-13 07:25] LABS: Glucose Point of Care 90 mg/dL (70-110)
[2020-09-13 07:55] VITALS: BP 124/72; PULSE 84; RESP 16; TEMP 36.9; O2SAT 96
[2020-09-13] MEDS: TRAMadol 50 mg Tablet PO (07:57)
[2020-09-13] MEDS: vancomycin 1,000 MG in sodium chloride 0.9% 250 ML 250 MG IV (08:00)
--- NOTE | 2020-09-13 08:00 | FL_ITS ---
WS: [id number] Exam: FL barium swallow modifd [id number] Date/Time of Exam: 09/13/2020 11:39 AM Reason For Exam: Oropharyngeal dysphagia Fluoroscopy time: 3.8 minutes The exam was performed in conjunction with the speech therapy service. Swallowing function at the level of the oropharynx was normal. There was no evidence of aspiration. T he patient experienced very slight pooling of thin liquid barium into the vallecula during the exam. There was no significant penetration into the laryngeal inlet. The patient otherwise tolerated thin l iquid, nectar consistency and solid barium mixture foodstuffs without complication. The barium tablet administered was retained in the distal esophagus slightly above the GE junction. FL/FL barium swallow modifd [id number] IMPRESSION: 1. No evidence of aspiration or significant penetration into the laryngeal inle t during swallowing. 2. Minimal pooling of the thin liquid barium into the vallecula. 3. The barium tablet administered was retained in the distal esophagus slightly above the GE junction. Treatment recommendations will be made by the speech therapy service.
--- NOTE | 2020-09-13 08:06 | PM.PN ---
Subjective Subjective: Interval history: patient is improved from yesterday. Cultures appear to have grown coagulase negative staph at this point. Drain is 50 on last shift. I will plan to pull out today. Vitals/I&O/Wt Last Vital Signs Temp 98.5 F 09/13/20 07:55 Pulse 84 09/13/20 07:55 Resp 16 09/13/20 07:55 BP 124/72 09/13/20 07:55 Pulse Ox 96 09/13/20 07:55 09/12/20 09/13/20 09/13/20 22:59 06:59 14:59 Intake Total 550 / 1890 1290 / 3180 50 / 50 Output Total 1840 / 2065 1145 / 3210 Balance -1290 / -175 145 / -30 50 / 50 Weight last 48 hrs Weight 191 lb 1.6 oz Physical Exam Narrative: EXAM NARRATIVE: Wound is clean dry and intact strength in lower extremities is 5 out of 5 drain had less than 50 out last shift. Data : 09/13/20 05:50 09/13/20 05:50 Micro: Microbiology 09/13/20 06:00 Blood Culture - Preliminary Blood SPECIMEN COLLECTED 09/13/20 05:50 Blood Culture - Preliminary Blood SPECIMEN COLLECTED 09/11/20 11:30 Gram Stain - Final Back Anaerobic Culture - Preliminary Wound Culture - Preliminary Coagulase negativ staphylococc 09/10/20 10:12 Blood Culture - Preliminary Blood Coagulase negativ staphylococc A&P Assessment and plan (1) History of lumbar surgery: Patient is postop day #2 for wound infection irrigation and debridement. At this point will wait for final cultures patient will likely need a PICC line set up at discharge. Status: Acute Attestations Medical Necessity Statement*: Needing final cultures and PICC line set up. Coding Level of Care Code Acute Firearms Instructor for Rafia Anguiano Diagnoses History of lumbar surgery Z98.890
[2020-09-13] MEDS: docusate sodium 100 mg Capsule PO ×2 (08:45→19:59)
[2020-09-13] MEDS: aspirin 81 mg EC Tablet PO (08:45)
[2020-09-13] MEDS: pantoprazole DR 40 mg Tablet PO (08:46)
[2020-09-13] MEDS: metoprolol succinate ER (24 HR) 25 mg Tablet PO (08:46)
[2020-09-13 11:37] VITALS: BP 108/64; PULSE 100; RESP 18; TEMP 36.9; O2SAT 98
[2020-09-13 12:01] LABS: Glucose Point of Care 119 mg/dL (70-110)
[2020-09-13] MEDS: ondansetron 2 mg/ML SDV 2 mL 4 MG IVP (14:31)
[2020-09-13] MEDS: tizanidine 4 mg Tablet PO (14:33)
[2020-09-13 16:00] VITALS: BP 119/70; PULSE 89; RESP 18; TEMP 36.8; O2SAT 96
--- NOTE | 2020-09-13 16:15 | P.PN_ITS ---
Subjective Subjective: Interval history: Afebrile, hemodynamically stable, serosanguineous discharge noted from sutures, drain to be removed today. Leukocytosis resolved. 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 Status post I&D in the OR on September 11, inflammatory/infectious changes noted to be extending down to bone Culture taken in the OR, cultures show staph epidermidis, however this needs to be interpreted with caution as patient was on an extended course of Bactrim sin e August 26. Patient has other concerning signs of abscess with possible extension down to bone/hardware as evidenced by leukocytosis of 22, now resolved with I&D and antibiotic therapy, elevated ESR greater than 120, CRP greater than 320. Discontinue piperacillin tazobactam today. Continue vancomycin with trough monitoring. Plan for discharge on IV vancomycin course of at least 6 weeks given complicated deep-seated infection extending down to bone and hardware with failure of outpatient antibiotic regimen with Bactrim. Blood cultures 1 of 4+ for coag negative staph, likely to be contaminant. While on the above regimen, patient will need weekly labs including CBC CMP and vancomycin trough monitoring. PICC line ordered, unable to be placed today. Patient had initially indicated she would be agreeable to discharge to snf facility, however now she wishes To travel to [place] and left with her son for the duration of her antibiotics. Case management is working on arranging home IV infusion company and working with pharmacies in [place]. Status: Acute Qualifiers: Sepsis type: sepsis due to unspecified organism Sepsis acute organ dysfunction status: unspecified Qualified Code(s): A41.9 - Sepsis, unspecified organism (2) Complication, postoperative infection: Status: Acute Qualifiers: Encounter type: initial encounter Postoperative infection type: unspecified type Qualified Code(s): T81.40XA - Infection following a procedure, unspecified, initial encounter (3) Spinal abscess: Status: Acute (4) Sinus tachycardia: Increase metoprolol to 25 mg p.o. daily Status: Acute (5) Hypertension: hold antihypertensives for now Status: Acute Qualifiers: Hypertension type: essential hypertension Qualified Code(s): I10 - Essential (primary) hypertension Additional A&P Information DM: Insulin sliding scale Underwent modified barium swallow today due to and noticed events of aspiration twice during this admission course. Results show no evidence of aspiration, minimal pooling of thin liquid in the vallecula. Diet recommendations per speech therapy. 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
[2020-09-13 18:55] LABS: Vancomycin Trough 9.6 ug/mL (10-15)
[2020-09-13 19:36] VITALS: BP 100/52; PULSE 80; RESP 19; TEMP 36.8; O2SAT 96
[2020-09-13] MEDS: enoxaparin 30 mg/0.3 mL Syringe SUBCUT (20:00)
[2020-09-13 20:19] LABS: Glucose Point of Care 175 mg/dL (70-110)
[2020-09-13] MEDS: atorvastatin 40 mg Tablet PO (21:11)
[2020-09-13] MEDS: gabapentin 100 mg Capsule PO (21:11)
[2020-09-13] MEDS: vancomycin 1,250 MG/250 ML PIGGYBACK 200 MG IV (21:12)
--- NOTE | 2020-09-13 21:12 | PC.NURSE ---
SHIFT SUMMARY DR YODER ROUNDED ON PT FIRST THING THIS MORNING AFTER SHIFT CHANGE. DR YODER ORDERED FOR THE DRAIN TO BE PULLED. AROUND 1330 THIS NURSE WENT IN TO PULL THE DRAIN. DRAIN WAS DRAINED WITH 70 ML. DRAIN WAS THEN PULLED. PATIENT TOLERATED WELL. MINIMAL COMPLAINTS OF PAIN THIS MORNING AND AFTER DRAIN WAS PULLED. PT HAS DONE WELL THIS WHOLE SHIFT. WILL CONTINUE TO MONITOR.
[2020-09-13] MEDS: HYDROcodone-acetaminophen 5-325 mg Tablet PO (21:50)
[2020-09-14] VITALS (7 sets, daily range): BP systolic 99–134; BP diastolic 58–76; PULSE 61–115; RESP 17–18; TEMP 36.3–37; O2SAT 95–98
[2020-09-14 06:25] LABS: Glucose Point of Care 91 mg/dL (70-110)
[2020-09-14 06:42] LABS: Basophils # 0.1 10^3/uL (0.0-0.1); Basophils % 0.6 %; Eosinophils # 0.2 10^3/uL (0.0-0.8); Eosinophils % 1.4 %; Hematocrit 24.5 % (37.0-47.0); Hemoglobin 7.5 g/dL (11.5-15.3); Lymphocytes # 1.4 10^3/uL (0.8-4.8); Lymphocytes % 13.3 %; Mean Corpuscular HGB Conc 30.6 g/dL (30.0-36.0); Mean Corpuscular Hemoglobin 27.9 pg (28.0-34.0); Mean Corpuscular Volume 91.1 fL (81-99); Mean Platelet Volume 8.3 fL (7.4-10.4); Monocytes # 0.9 10^3/uL (0.2-0.9); Monocytes % 8.2 %; Neutrophils # 7.02 10^3/uL (1.8-7.7); Nucleated Red Blood Cells % 0.4 %; Platelet Count 384 10^3/cmm (130-400); Red Blood Count 2.69 10^6/uL (4.1-5.3); Red Cell Distribution Width 15.3 % (12.1-15.1); White Blood Count 10.6 10^3/uL (4.0-10.0)
[2020-09-14] MEDS: TRAMadol 50 mg Tablet PO ×2 (06:54→20:42)
[2020-09-14 07:16] LABS: Alanine Aminotransferase 24 U/L (0-33); Albumin Level 2.5 g/dL (3.5-5.2); Alkaline Phosphatase 242 IU/L (35-105); Anion Gap 14.2 (5-19); Aspartate Amino Transferase 32 U/L (0-32); Blood Urea Nitrogen 7 mg/dL (8-23); Calcium 8.8 mg/dL (8.5-10.5); Carbon Dioxide 24 mmol/L (22-29); Chloride 107 mmol/L (98-107); Ferritin 697 ng/mL (15-150); Globulin 3.6 g/dL (1.3-4.6); Glomerular Filtration Rate 122.3 mL/min (90-130); Glucose 94 mg/dL (65-115); Iron 23 ug/dL (37-145); Osmolality Calculated 290 mOsm/kg (285-295); Percent Saturation 15.7 % (20-50); Potassium 4.2 mmol/L (3.5-5.1); Sodium 141 mmol/L (136-145); Total Bilirubin 0.2 mg/dL (0.15-1.2); Total Iron Binding Capacity 146 mcg/dl; Total Protein 6.1 g/dL (6.6-8.7); Unsaturated Iron Binding 123 ug/dL (112-347)
--- NOTE | 2020-09-14 07:23 | PC.NURSE ---
or called saying pts picc line is scheduled for Wednesday morning at 8 am.
[2020-09-14 08:05] LABS: Neutrophils % 76.5 %
[2020-09-14 08:06] LABS: Slide Review Slide Review Perform
[2020-09-14] MEDS: pantoprazole DR 40 mg Tablet PO (08:07)
[2020-09-14] MEDS: docusate sodium 100 mg Capsule PO ×2 (08:07→18:19)
[2020-09-14] MEDS: aspirin 81 mg EC Tablet PO (08:07)
[2020-09-14] MEDS: metoprolol succinate ER (24 HR) 25 mg Tablet PO (08:08)
[2020-09-14] MEDS: tizanidine 4 mg Tablet PO ×2 (08:08→18:19)
[2020-09-14] MEDS: vancomycin 1,250 MG/250 ML PIGGYBACK 200 MG IV ×2 (08:08→20:18)
--- NOTE | 2020-09-14 08:21 | P.PN_ITS ---
Subjective Subjective: Interval history: Patient had head ache yesterday but has since resolved. pt had drain pulled yesterday and had drainage but this has since resolved Vitals/I&O/Wt Last Vital Signs Temp 98.1 F 09/14/20 08:00 Pulse 88 09/14/20 08:00 Resp 18 09/14/20 08:00 BP 110/58 09/14/20 08:00 Pulse Ox 96 09/14/20 08:00 09/13/20 09/14/20 09/14/20 22:59 06:59 14:59 Intake Total 840 / 2740 Output Total 150 / 220 1400 / 1620 Balance 690 / 2520 -1400 / 1120 Weight last 48 hrs Weight 191 lb 1.6 oz Physical Exam Narrative: EXAM NARRATIVE: 5/5 strength dressing taken down that was placed yesterday is completely dry Data : 09/14/20 05:42 09/14/20 05:42 Micro: Microbiology 09/13/20 06:00 Blood Culture - Preliminary Blood NEGATIVE TO DATE 09/13/20 05:50 Blood Culture - Preliminary Blood NEGATIVE TO DATE 09/11/20 11:30 Gram Stain - Final Back Anaerobic Culture - Preliminary Wound Culture - Preliminary Staphylococcus epidermidis A&P Additional A&P Information s/p I+D back wound with staph epidermidis awaiting PICC line likely wednesday continue up with PT Attestations Medical Necessity Statement*: needs PICC placed Coding Level of Care Code Acute 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
--- NOTE | 2020-09-14 11:19 | P.PN_ITS ---
Subjective Subjective: Interval history: Afebrile, hemodynamically stable, hemoglobin stable at 7.5. Awaiting placement of PICC line, on not available over the weekend, she is currently scheduled for Wednesday morning. Drain has been serially removed. 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 Data : 09/14/20 05:42 09/14/20 05:42 Micro: Microbiology 09/11/20 11:30 Gram Stain - Final Back Anaerobic Culture - Preliminary Wound Culture - Final Staphylococcus epidermidis 09/13/20 06:00 Blood Culture - Preliminary Blood NEGATIVE TO DATE 09/13/20 05:50 Blood Culture - Preliminary Blood NEGATIVE TO DATE A&P Assessment and plan (1) Sepsis: present on admission now, now resolved Source of sepsis likely to be large fluid collection/possible abscess in the laminectomy bed extending L2-L5. Status post I&D in the OR on September 11, extending in the deep bed. Culture taken in the OR, cultures show staph epidermidis, however this needs to be interpreted with caution as patient was on an extended course of Bactrim since August 26. Patient has other concerning signs of deep infection with possible extension down to bone/hardware as evidenced by leukocytosis of 22, now resolved with I&D and antibiotic therapy, elevated ESR greater than 120, CRP greater than 320. Continue vancomycin with trough monitoring, goal trough 15-20. Plan for discharge on IV vancomycin course of at least 6 weeks given complicated deep-seated infection extending down to bone and hardware with failure of outpatient antibiotic regimen with Bactrim. Further course to be decided based on clinical improvement and inflammatory markers trend. Blood cultures 1 of 4+ for coag negative staph, likely to be contaminant. While on the above regimen, patient will need weekly labs including CBC CMP and vancomycin trough monitoring. PICC line ordered, to be placed on Wednesday Patient had initially indicated she would be agreeable to discharge to assisted facility, however now she wishes To travel to [place] and left with her son for the duration of her antibiotics. Case management is working on arranging home IV infusion company and working with pharmacies in [place]. Status: Acute Qualifiers: Sepsis type: sepsis due to unspecified organism Sepsis acute organ dysfunction status: unspecified Qualified Code(s): A41.9 - Sepsis, unspecified organism (2) Complication, postoperative infection: Status: Acute Qualifiers: Encounter type: initial encounter Postoperative infection type: unspecified type Qualified Code(s): T81.40XA - Infection following a procedure, unspecified, initial encounter (3) Spinal abscess: Status: Acute (4) Sinus tachycardia: HR better contolled with metoprolol 25mg po daily Status: Acute (5) Hypertension: hold antihypertensives for now Status: Acute Qualifiers: Hypertension type: essential hypertension Qualified Code(s): I10 - Essential (primary) hypertension Additional A&P Information DM: Insulin sliding scale Ba swallow normal, no further aspiration events noted DVT ppx: Lovenox Full code Attestations Medical Necessity Statement*: need for iv abx, awaiting PICC line placement, coordination with outpatient pharmacies for home abx infusion Coding Level of Care Code Acute Manager Business Process for [facility] Fwd Diagnoses Sepsis A41.9 Sepsis type: sepsis due to unspecified organism Sepsis acute organ dysfunction status: unspecified Complication, postoperative infection T81.40XA Encounter type: initial encounter Postoperative infection type: unspecified type Spinal abscess M46.20 Sinus tachycardia R00.0 Hypertension I10 Hypertension type: essential hypertension
[2020-09-14 11:45] LABS: Glucose Point of Care 115 mg/dL (70-110)
[2020-09-14] MEDS: acetaminophen 325 mg Tablet 650 MG PO ×2 (12:09→23:57)
--- NOTE | 2020-09-14 12:31 | PC.CHAP ---
Pastoral Care Encounter/Spiritual Assessment Type of Contact [] Declined market developer visit [] Patient/Family/Request visit [] Outpatient visit [] Follow-up visit [] Physician referral [] Code/Alert [XX] Routine visit [] Staff referral [] Actively dying [] Patient sleeping [] Family support [] [] Out of room [] Palliative care [] [] Receiving care in room [] Pre-surgical visit [] Trauma [] Long length of stay [] ICU visit [] Other: Relational/Emotional Strength [XX] Patient feels connected with others/family/visitors/staff [] Distress [] Loneliness/isolation [] Abandonment Spirituality of Patient [XX] Person of Nicki [XX] Attends Mandaeism of their Nicki [XX] Believes in Prayer [XX] Reads Bible or Restoration materials [] There are Spiritual issues to be addressed [employer] Interventions [XX] Prayer [XX] Active listening [XX] Non-anxious presence [] Spiritual/emotional support [] Crisis/trauma care [] Spiritual counseling [] Bereavement support [] Provided bereavement packet [XX] Provided Bible/devotional materials [] Provided toy/stuffed animal, coloring book to patient or family member [] Provided Communion [] Anointing/[place] [] Salvation [XX] Completed spiritual assessment [] Other: Impact on Illness or Injury [] Angry [] Fearful [] Anxious [] Often cries [] Exhaustion [] Unable to work [] Unable to attend religious [] Unable to walk/stand [] Unable to read [] Unable to drive [] Unable to eat/drink [] Unable to sleep [] Unable to be with family [] Patient intubated [] Other: Summary: Pt shared her story of complications post-surgery for lower back issues. Surgery was in July but after repeated difficulty and infection, pt had to undergo another procedure. Pt is strong in her nicki and has strong support system. Pt is retired so she is not missing any work. Pt welcomed market developer visit. Prayer and Daily Bread provided. Time spent with patient: 20 mins
[2020-09-14 17:04] LABS: Glucose Point of Care 152 mg/dL (70-110)
[2020-09-14] MEDS: enoxaparin 30 mg/0.3 mL Syringe SUBCUT (18:19)
[2020-09-14 20:08] LABS: Vancomycin Trough 13.1 ug/mL (10-15)
[2020-09-14] MEDS: gabapentin 100 mg Capsule PO (20:18)
[2020-09-14] MEDS: atorvastatin 40 mg Tablet PO (20:18)
[2020-09-14 20:20] LABS: Glucose Point of Care 162 mg/dL (70-110)
[2020-09-15] MEDS: magnesium hydroxide 30 mL UDC PO (01:45)
[2020-09-15 04:00] VITALS: BP 113/63; PULSE 91; RESP 16; TEMP 36.6; O2SAT 98
[2020-09-15 06:42] LABS: Glucose Point of Care 120 mg/dL (70-110)
[2020-09-15 07:50] VITALS: BP 128/78; PULSE 95; RESP 18; TEMP 37; O2SAT 97
--- NOTE | 2020-09-15 07:50 | P.PN_ITS ---
Subjective Subjective: Interval history: complaint of muscle spasm last night but resolved Vitals/I&O/Wt Last Vital Signs Temp 98 F 09/15/20 04:00 Pulse 91 09/15/20 04:00 Resp 16 09/15/20 04:00 BP 113/63 09/15/20 04:00 Pulse Ox 98 09/15/20 04:00 09/14/20 09/15/20 09/15/20 22:59 06:59 14:59 Intake Total 730 / 1460 120 / 1580 Output Total 1250 / 2050 Balance 730 / 660 -1130 / -470 Physical Exam Narrative: EXAM NARRATIVE: wound CDI Data : 09/14/20 05:42 09/14/20 05:42 Micro: Microbiology 09/11/20 11:30 Gram Stain - Final Back Anaerobic Culture - Preliminary Wound Culture - Final Staphylococcus epidermidis 09/13/20 06:00 Blood Culture - Preliminary Blood NEGATIVE TO DATE 09/13/20 05:50 Blood Culture - Preliminary Blood NEGATIVE TO DATE A&P Additional A&P Information s/p ID of back wound Awaiting PICC Attestations Medical Necessity Statement*: awaiting PICC Coding Level of Care Code Acute 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
[2020-09-15] MEDS: pantoprazole DR 40 mg Tablet PO (09:12)
[2020-09-15] MEDS: aspirin 81 mg EC Tablet PO (09:12)
[2020-09-15] MEDS: vancomycin 1,250 MG/250 ML PIGGYBACK 200 MG IV ×2 (09:12→21:24)
[2020-09-15] MEDS: docusate sodium 100 mg Capsule PO ×2 (09:12→18:42)
[2020-09-15] MEDS: metoprolol succinate ER (24 HR) 25 mg Tablet PO (09:12)
[2020-09-15] MEDS: tizanidine 4 mg Tablet PO ×2 (09:31→22:40)
[2020-09-15 10:49] LABS: Glucose Point of Care 155 mg/dL (70-110)
[2020-09-15 11:35] VITALS: BP 112/65; PULSE 93; RESP 18; TEMP 36.6; O2SAT 99
[2020-09-15] MEDS: ketorolac 30 mg/mL INJ IVP (12:37)
[2020-09-15 15:00] VITALS: BP 106/66; PULSE 98; RESP 18; TEMP 36.7; O2SAT 99
[2020-09-15] MEDS: acetaminophen 325 mg Tablet 650 MG PO (16:37)
[2020-09-15] MEDS: TRAMadol 50 mg Tablet PO ×2 (16:38→22:41)
--- NOTE | 2020-09-15 17:18 | P.PN_ITS ---
Subjective Subjective: Interval history: Afebrile, hemodynamically stable, continues to complain of pain in bilateral legs, passing pieces and flatus, able to pass urine without complaints. 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 Extremities: Multiple sutures seen extending over lower back from recent surgery, no surrounding discharge or concerning cellulitic changes Data : 09/14/20 05:42 09/14/20 05:42 Micro: Microbiology 09/11/20 11:30 Gram Stain - Final Back Anaerobic Culture - Preliminary Wound Culture - Final Staphylococcus epidermidis 09/10/20 10:12 Blood Culture - Preliminary Blood Coagulase negativ staphylococc 09/10/20 10:08 Blood Culture - Preliminary Blood Coagulase negativ staphylococc A&P Assessment and plan (1) Sepsis: present on admission now, now resolved Source of sepsis likely to be large fluid collection/possible abscess in the laminectomy bed extending L2-L5. Status post I&D in the OR on September 11, extending in the deep bed. Culture taken in the OR, cultures show staph epidermidis, however this needs to be interpreted with caution as patient was on an extended course of Bactrim since August 26. Patient has other concerning signs of deep infection with possible extension down to bone/hardware as evidenced by leukocytosis of 22, now resolved with I&D and antibiotic therapy, elevated ESR greater than 120, CRP greater than 320. Continue vancomycin with trough monitoring, goal trough 15-20. Plan for discharge on IV vancomycin course of at least 6 weeks given complicated deep-seated infection extending down to bone and hardware with failure of outpatient antibiotic regimen with Bactrim. Further course to be decided based on clinical improvement and inflammatory markers trend. Blood cultures 1 of 4+ for coag negative staph, likely to be contaminant. While on the above regimen, patient will need weekly labs including CBC CMP and vancomycin trough monitoring. PICC line ordered, to be placed on Wednesday Patient had initially indicated she would be agreeable to discharge to [facility] facility, however now she wishes To travel to [place] and left with her son for the duration of her antibiotics. Case management is working on arranging home IV infusion company and working with pharmacies in [place]. Status: Acute Qualifiers: Sepsis type: sepsis due to unspecified organism Sepsis acute organ dysfunction status: unspecified Qualified Code(s): A41.9 - Sepsis, unspecified organism (2) Complication, postoperative infection: Status: Acute Qualifiers: Encounter type: initial encounter Postoperative infection type: unspecified type Qualified Code(s): T81.40XA - Infection following a procedure, unspecified, initial encounter (3) Sinus tachycardia: HR better contolled with metoprolol 25mg po daily Status: Acute (4) Hypertension: hold antihypertensives for now Status: Acute Qualifiers: Hypertension type: essential hypertension Qualified Code(s): I10 - Essential (primary) hypertension Additional A&P Information DM: Insulin sliding scale Ba swallow normal, no further aspiration events noted DVT ppx: Lovenox Full code Attestations Medical Necessity Statement*: Awaiting PICC line placement tomorrow morning, case management working on arranging vancomycin with pharmacies in [place]., Coding Level of Care Code Acute 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
[2020-09-15 17:29] LABS: Glucose Point of Care 121 mg/dL (70-110)
[2020-09-15] MEDS: enoxaparin 40 mg/0.4 mL Syringe SUBCUT (18:42)
[2020-09-15 20:00] VITALS: BP 118/71; PULSE 84; RESP 18; TEMP 37.2; O2SAT 97
[2020-09-15] MEDS: gabapentin 100 mg Capsule PO (21:23)
[2020-09-15] MEDS: atorvastatin 40 mg Tablet PO (21:23)
[2020-09-15 21:29] LABS: Glucose Point of Care 164 mg/dL (70-110)
[2020-09-16] VITALS: BP 120/71; PULSE 90; RESP 18; TEMP 36.8; O2SAT 96
[2020-09-16 04:00] VITALS: BP 119/71; PULSE 91; RESP 18; TEMP 36.8; O2SAT 98
[2020-09-16 06:48] LABS: Glucose Point of Care 102 mg/dL (70-110)
--- NOTE | 2020-09-16 07:01 | P.PN_ITS ---
Subjective Subjective: Interval history: Patient doing better every day. At this point patient continues to have muscle spasms daily. She seems to be fine however when I see her every morning. The medication she takes to resolve this has been working. Vitals/I&O/Wt Last Vital Signs Temp 98.2 F 09/16/20 04:00 Pulse 91 09/16/20 04:00 Resp 18 09/16/20 04:00 BP 119/71 09/16/20 04:00 Pulse Ox 98 09/16/20 04:00 09/15/20 09/16/20 09/16/20 22:59 06:59 14:59 Intake Total 610 / 1100 Output Total 1600 / 1800 Balance 610 / 900 -1600 / -700 Physical Exam Narrative: EXAM NARRATIVE: Wound is completely clean dry and intact. Data : 09/14/20 05:42 09/14/20 05:42 Micro: Microbiology 09/11/20 11:30 Gram Stain - Final Back Anaerobic Culture - Preliminary Wound Culture - Final Staphylococcus epidermidis 09/10/20 10:12 Blood Culture - Preliminary Blood Coagulase negativ staphylococc 09/10/20 10:08 Blood Culture - Preliminary Blood Coagulase negativ staphylococc A&P Assessment and plan (1) History of lumbar surgery: Status post I&D. To get PICC line today. Discharge planning. 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
[2020-09-16 07:19] VITALS: BP 124/65; PULSE 90; RESP 17; TEMP 36.8; O2SAT 97
[2020-09-16] MEDS: docusate sodium 100 mg Capsule PO ×2 (08:07→17:27)
[2020-09-16] MEDS: aspirin 81 mg EC Tablet PO (08:07)
[2020-09-16] MEDS: metoprolol succinate ER (24 HR) 25 mg Tablet PO (08:07)
[2020-09-16] MEDS: pantoprazole DR 40 mg Tablet PO (08:07)
[2020-09-16] MEDS: vancomycin 1,250 MG/250 ML PIGGYBACK 200 MG IV ×2 (08:07→22:00)
--- NOTE | 2020-09-16 09:36 | XR_ITS ---
WS: [id number] PORTABLE CHEST HISTORY: picc placement COMPARISON: 09/10/2020 Right-sided PICC line in good position with tip in the distal SVC. No complications. Lungs are clear and well expanded. No pleural effusion or pneumothorax. Cardiac size: Mildly enlarged cardiac silhouette. Mediastinum/Aorta: Normal mediastinum. Postsurgical changes near the thoracolumbar spine. XR/XR chest 1V portable [id number] IMPRESSION: Interval insertion of a RIGHT PICC line in good position.
--- NOTE | 2020-09-16 09:37 | P.PN_ITS ---
Subjective Subjective: Interval history: Patient was seen and examined this morning. She continues to remain afebrile, hemodynamically stable, she was complaining of muscle spasm in the left leg, which appropriately respond to Zanaflex (tizanidine ).She has good bowel and bladder control. Participating with physical therapy. Medications: Reviewed: Yes Vitals/I&O/Wt Last Vital Signs Temp 98.2 F 09/16/20 07:19 Pulse 90 09/16/20 07:19 Resp 17 09/16/20 07:19 BP 124/65 09/16/20 07:19 Pulse Ox 97 09/16/20 07:19 09/15/20 09/16/20 09/16/20 22:59 06:59 14:59 Intake Total 610 / 1100 140 / 140 Output Total 1600 / 1800 Balance 610 / 900 -1600 / -700 140 / 140 Physical Exam Const: COMMON NORMALS: patient oriented x3 Resp: COMMON NORMALS: clear to auscultation bilaterally AUSCULTATION: clear to auscultation bilaterally Cardio: COMMON NORMALS: S1 normal heart sound present, S2 normal heart sound present and Peripheral pulses 2+ throughout HEART SOUNDS: S1 normal heart sound present and S2 normal heart sound present PERIPHERAL PULSES: Peripheral pulses 2+ throughout GI: COMMON NORMALS: Normal to inspection, nondistended, normoactive bowel s ounds present, Soft to palpation, non-tender, No hepatosplenomegaly present and no masses AUSCULTATION: Yes normoactive bowel sounds PALPATION: Yes Soft to palpation and Yes No hepatosplenomegaly present RECTAL EXAM: deferred Extremity: COMMON NORMALS: no clubbing, cyanosis or edema and no pedal edema OTHER: Lower back wound is clean and dry, no discharge, no evidence of cellulitis. Neuro: COMMON NORMALS: patient oriented x3 Data : 09/14/20 05:42 09/14/20 05:42 Micro: Microbiology 09/11/20 11:30 Gram Stain - Final Back Anaerobic Culture - Preliminary Wound Culture - Final Staphylococcus epidermidis 09/10/20 10:12 Blood Culture - Preliminary Blood Coagulase negativ staphylococc 09/10/20 10:08 Blood Culture - Preliminary Blood Coagulase negativ staphylococc A&P Assessment and plan (1) Sepsis: present on admission now, now resolved Source of sepsis likely to be large fluid collection/possible abscess in the laminectomy bed extending L2-L5. Status post I&D in the OR on September 11, extending in the deep bed. Culture taken in the OR, cultures show staph epidermidis, however this needs to be interpreted with caution as patient was on an extended course of Bactrim since August 26. Patient has other concerning signs of deep infection with possible extension down to bone/hardware as evidenced by leukocytosis of 22, now resolved with I&D and antibiotic therapy, elevated ESR greater than 120, CRP gre ater than 320. Continue vancomycin with trough monitoring, goal trough 15-20. Plan for discharge on IV vancomycin course of at least 6 weeks given complicated deep-seated infection extending down to bone and hardware with failure of outpatient antibiotic regimen with Bactrim. Further course to be decided based on clinical improvement and inflammatory markers trend. Blood cultures 1 of 4+ for coag negative staph, likely to be contaminant. While on the above regimen, patient will need weekly labs including CBC CMP and vancomycin trough monitoring. PICC line ordered, to be placed on Wednesday Patient had initially indicated she would be agreeable to discharge to [facility] facility, however now she wishes To travel to [place] and left with her son for the duration of her antibiotics . Case management is working on arranging home IV infusion company and working with pharmacies in [place]. Status: Acute Qualifiers: Sepsis type: sepsis due to unspecified organism Sepsis acute organ dysfunction status: unspecified Qualified Code(s): A41.9 - Sepsis, unspecified organism (2) Complication, postoperative infection: Status: Acute Qualifiers: Encounter type: initial encounter Postoperative infection type: unspecified type Qualified Code(s): T81.40XA - Infection following a procedure, unspecified, initial encounter (3) Sinus tachycardia: HR better contolled with metoprolol 25mg po daily Status: Acute (4) Hypertension: hold antihypertensives for now Status: Acute Qualifiers: Hypertension type: essential hypertension Qualified Code(s): I10 - Essential (primary) hypertension Additional A&P Information DM: Insulin sliding scale Ba swallow normal, no further aspiration events noted DVT ppx: Lovenox Full code Attestations Medical Necessity Statement*: Patient needs to be in hospital for management of sepsis, need for IV antibiotic currently awaiting safe discharge. Coding Level of Care Code Acute Air Control/Anti Air Warfare Officer for [facility] Fwd Diagnoses Sepsis A41.9 Sepsis type: sepsis due to unspecified organism Sepsis acute organ dysfunction status: unspecified Complication, postoperative infection T81.40XA Encounter type: initial encounter Postoperative infection type: unspecified type Sinus tachycardia R00.0 Hypertension I10 Hypertension type: essential hypertension
[2020-09-16 10:46] VITALS: BP 108/61; PULSE 94; RESP 18; TEMP 36.7; O2SAT 96
[2020-09-16 11:05] LABS: Glucose Point of Care 194 mg/dL (70-110)
[2020-09-16] MEDS: tizanidine 4 mg Tablet PO ×2 (14:02→22:07)
[2020-09-16 16:00] VITALS: BP 100/61; PULSE 104; RESP 16; TEMP 37; O2SAT 96
[2020-09-16 16:51] LABS: Glucose Point of Care 123 mg/dL (70-110)
[2020-09-16] MEDS: enoxaparin 40 mg/0.4 mL Syringe SUBCUT (17:27)
--- NOTE | 2020-09-16 18:38 | PC.NURSE ---
updated patient's daughter on patient's conditions. Patient's daughter said there is no one that is here to take patient to son's house in [facility]. He can not come get patient until Wednesday.
[2020-09-16] MEDS: TRAMadol 50 mg Tablet PO (19:49)
[2020-09-16] MEDS: atorvastatin 40 mg Tablet PO (19:49)
[2020-09-16] MEDS: gabapentin 100 mg Capsule PO (19:49)
[2020-09-16 20:00] VITALS: BP 147/74; PULSE 97; RESP 17; TEMP 36.8; O2SAT 100
[2020-09-16 20:27] LABS: Vancomycin Trough 11.9 ug/mL (10-15)
[2020-09-16 21:34] LABS: Glucose Point of Care 133 mg/dL (70-110)
[2020-09-16] MEDS: ketorolac 30 mg/mL INJ IVP (22:07)
[2020-09-17] VITALS (9 sets, daily range): BP systolic 103–136; BP diastolic 60–77; PULSE 81–105; RESP 17–18; TEMP 36.4–36.8; O2SAT 96–98
[2020-09-17 03:17] LABS: Basophils # 0.1 10^3/uL (0.0-0.1); Basophils % 0.4 %; Eosinophils # 0.2 10^3/uL (0.0-0.8); Eosinophils % 1.3 %; Hematocrit 22.8 % (37.0-47.0); Lymphocytes # 1.6 10^3/uL (0.8-4.8); Lymphocytes % 13.2 %; Mean Corpuscular HGB Conc 30.7 g/dL (30.0-36.0); Mean Corpuscular Hemoglobin 27.7 pg (28.0-34.0); Mean Corpuscular Volume 90.1 fL (81-99); Mean Platelet Volume 8.3 fL (7.4-10.4); Monocytes # 0.9 10^3/uL (0.2-0.9); Monocytes % 7.8 %; Neutrophils # 8.63 10^3/uL (1.8-7.7); Neutrophils % 72.2 %; Nucleated Red Blood Cells % 0.2 %; Platelet Count 446 10^3/cmm (130-400); Red Blood Count 2.53 10^6/uL (4.1-5.3); Red Cell Distribution Width 15.3 % (12.1-15.1)
[2020-09-17 03:29] LABS: Blood Urea Nitrogen 14 mg/dL (8-23); Calcium 9.1 mg/dL (8.5-10.5); Carbon Dioxide 23 mmol/L (22-29); Chloride 102 mmol/L (98-107); Glomerular Filtration Rate 122.3 mL/min (90-130); Glucose 109 mg/dL (65-115); Osmolality Calculated 283 mOsm/kg (285-295); Sodium 136 mmol/L (136-145)
[2020-09-17 03:41] LABS: Slide Review Slide Review Perform
[2020-09-17 06:48] LABS: Glucose Point of Care 104 mg/dL (70-110)
--- NOTE | 2020-09-17 07:40 | PM.PN ---
Subjective Subjective: Interval history: complaint of cramping again yesterday, PICC placed yesterday Vitals/I&O/Wt Last Vital Signs Temp 98.2 F 09/17/20 03:17 Pulse 81 09/17/20 03:17 Resp 18 09/17/20 03:17 BP 132/73 09/17/20 03:17 Pulse Ox 96 09/17/20 03:17 09/16/20 09/17/20 09/17/20 22:59 06:59 14:59 Intake Total 356 / 886 250 / 1136 Output Total 750 / 750 Balance 356 / 886 -500 / 386 Physical Exam Narrative: EXAM NARRATIVE: wound CDI Data : 09/17/20 02:23 09/17/20 02:23 Micro: Microbiology 09/11/20 11:30 Gram Stain - Final Back Anaerobic Culture - Preliminary Wound Culture - Final Staphylococcus epidermidis 09/10/20 10:12 Blood Culture - Final Blood Staphylococcus epidermidis 09/10/20 10:08 Blood Culture - Final Blood Staphylococcus epidermidis A&P Assessment and plan (1) History of lumbar surgery: D/C planning social service consult Status: Acute Attestations Medical Necessity Statement*: needs PICC line set up with son in [place]. Coding Level of Care Code Acute Educational Therapy Teacher for [facility]ia Fwbrandon Diagnoses History of lumbar surgery Z98.890
[2020-09-17] MEDS: metoprolol succinate ER (24 HR) 25 mg Tablet PO (09:08)
[2020-09-17] MEDS: pantoprazole DR 40 mg Tablet PO (09:08)
[2020-09-17] MEDS: aspirin 81 mg EC Tablet PO (09:08)
[2020-09-17] MEDS: docusate sodium 100 mg Capsule PO ×2 (09:08→17:19)
[2020-09-17] MEDS: vancomycin 1,250 MG/250 ML PIGGYBACK 200 MG IV ×2 (09:08→20:06)
[2020-09-17] MEDS: magnesium hydroxide 30 mL UDC PO (09:08)
[2020-09-17 09:39] LABS: Ferritin 512 ng/mL (15-150); Iron 14 ug/dL (37-145); Percent Saturation 8.9 % (20-50); Total Iron Binding Capacity 157 mcg/dl; Transferrin 118 mg/dL (200-360); Unsaturated Iron Binding 143 ug/dL (112-347)
--- NOTE | 2020-09-17 11:48 | PM.PN ---
Subjective Subjective: Interval history: Patient was complaining of epsitaxsis this morning which stopped on its own.Has no prior complain of epsitaxsis in the past.Deny any dark stool, BRBPR, hematuria. Hb has dropped to 7 this morning.Plan is to transfuse 1 u PRBC and continue to monitor CBC. Medications: Reviewed: Yes Vitals/I&O/Wt Last Vital Signs Temp 97.6 F 09/17/20 07:58 Pulse 93 09/17/20 07:58 Resp 17 09/17/20 07:58 BP 120/66 09/17/20 07:58 Pulse Ox 96 09/17/20 07:58 09/16/20 09/17/20 09/17/20 22:59 06:59 14:59 Intake Total 356 / 886 250 / 1136 480 / 480 Output Total 750 / 750 Balance 356 / 886 -500 / 386 480 / 480 Physical Exam Const: COMMON NORMALS: patient oriented x3 Resp: COMMON NORMALS: clear to auscultation bilaterally AUSCULTATION: clear to auscultation bilaterally Cardio: COMMON NORMALS: S1 normal heart sound present, S2 normal heart sound present and Peripheral pulses 2+ throughout HEART SOUNDS: S1 normal heart sound present and S2 normal heart sound present PERIPHERAL PULSES: Peripheral pulses 2+ throughout GI: COMMON NORMALS: Normal to inspection, nondistended, normoactive bowel sounds present, Soft to palpation, non-tender, No hepatosplenomegaly present and no masses AUSCULTATION: Yes normoactive bowel sounds PALPATION: Yes Soft to palpation and Yes No hepatosplenomegaly present RECTAL EXAM: deferred Extremity: COMMON NORMALS: no clubbing, cyanosis or edema and no pedal edema OTHER: Lower back wound is clean and dry, no discharge, no evidence of cellulitis. Neuro: COMMON NORMALS: patient oriented x3 Data : 09/17/20 02:23 09/17/20 02:23 Micro: Microbiology 09/11/20 11:30 Gram Stain - Final Back Anaerobic Culture - Preliminary Wound Culture - Final Staphylococcus epidermidis 09/10/20 10:12 Blood Culture - Final Blood Staphylococcus epidermidis 09/10/20 10:08 Blood Culture - Final Blood Staphylococcus epidermidis A&P Assessment and plan (1) Sepsis: present on admission now, now resolved Source of sepsis likely to be large fluid collection/possible abscess in the laminectomy bed extending L2-L5. Status post I&D in the OR on September 11, extending in the deep bed. Culture taken in the OR, cultures show staph epidermidis, however this needs to be interpreted with caution as patient was on an extended course of Bactrim since August 26. Patient has other concerning signs of deep infection with possible extension down to bone/hardware as evidenced by leukocytosis of 22, now resolved with I&D and antibiotic therapy, elevated ESR greater than 120, CRP greater than 320. Continue vancomycin with trough monitoring, goal trough 15-20. Plan for discharge on IV vancomycin course of at least 6 weeks given complicated deep-seated infection extending down to bone and hardware with failure of outpatient antibiotic regimen with Bactrim. Further course to be decided based on clinical improvement and inflammatory markers trend. Blood cultures 1 of 4+ for coag negative staph, likely to be contaminant. While on the above regimen, patient will need weekly labs including CBC CMP and vancomycin trough monitoring. PICC line ordered, to be placed on Wednesday Patient had initially indicated she would be agreeable to discharge to nursing home facility, however now she wishes To travel to [place] and left with her son for the duration of her antibiotics. Case management is working on arranging home IV infusion company and working with pharmacies in [place]. Status: Acute Qualifiers: Sepsis acute organ dysfunction status: unspecified Sepsis type: sepsis due to unspecified organism Qualified Code(s): A41.9 - Sepsis, unspecified organism (2) Anemia due to blood loss, acute: Normocytic Anemia likely 2/2 to blood loss. Anemia Panel Hb has dropped to 7 this morning.Plan is to transfuse 1 u PRBC continue to monitor CBC Status: Acute (3) Complication, postoperative infection: Status: Acute Qualifiers: Encounter type: initial encounter Postoperative infection type: unspecified type Qualified Code(s): T81.40XA - Infection following a procedure, unspecified, initial encounter (4) Sinus tachycardia: HR better contolled with metoprolol 25mg po daily Status: Acute (5) Hypertension: hold antihypertensives for now Status: Acute Qualifiers: Hypertension type: essential hypertension Qualified Code(s): I10 - Essential (primary) hypertension Additional A&P Information DM: Insulin sliding scale Ba swallow normal, no further aspiration events noted DVT ppx: Lovenox Full code Attestations Medical Necessity Statement*: Patient needs to be in hospital for the management of sepsis,need for I.V abxs , severe anemia Coding Level of Care Code Acute Refinery Operator Light Ends Recovery for g Fwd Exam Detailed Diagnoses Sepsis A41.9 Sepsis acute organ dysfunction status: unspecified Sepsis type: sepsis due to unspecified organism Anemia due to blood loss, acute D62 Complication, postoperative infection T81.40XA Encounter type: initial encounter Postoperative infection type: unspecified type Sinus tachycardia R00.0 Hypertension I10 Hypertension type: essential hypertension
[2020-09-17 11:51] LABS: Glucose Point of Care 93 mg/dL (70-110)
--- NOTE | 2020-09-17 12:30 | PC.CHAP ---
Pastoral Care Encounter/Spiritual Assessment Type of Contact [] Declined insecticide sprayer visit [] Patient/Family/Request visit [] Outpatient visit [] Follow-up visit [] Physician referral [] Code/Alert [x] Routine visit [] Staff referral [] Actively dying [] Patient sleeping [] Family support [] [] Out of room [] Palliative care [] [] Receiving care in room [] Pre-surgical visit [] Trauma [] Long length of stay [] ICU visit [] Other: Relational/Emotional Strength [] Patient feels connected with others/family/visitors/staff [] Distress [] Loneliness/isolation [] Abandonment Spirituality of Patient [] Person of Nicki [] Attends Gnosticist of their Nicki [] Believes in Prayer [] Reads Bible or Tenriism materials [] There are Spiritual issues to be addressed Cafeteria Worker Interventions [] Prayer [] Active listening [] Non-anxious presence [] Spiritual/emotional support [] Crisis/trauma care [] Spiritual counseling [] Bereavement support [] Provided bereavement packet [] Provided Bible/devotional materials [] Provided toy/stuffed animal, coloring book to patient or family member [] Provided Communion [] Anointing/Combined Locks [] Salvation [] Completed spiritual assessment [] Other: Impact on Illness or Injury [] Angry [] Fearful [] Anxious [] Often cries [] Exhaustion [] Unable to work [] Unable to attend uatsdin [] Unable to walk/stand [] Unable to read [] Unable to drive [] Unable to eat/drink [] Unable to sleep [] Unable to be with family [] Patient intubated [] Other: Summary patient said shes ok Time spent with patient 5 min
--- NOTE | 2020-09-17 12:52 | PC.SOCIAL ---
*IMM* Patient received updated IMM, SS initialled in the chart.
[2020-09-17] MEDS: ketorolac 30 mg/mL INJ IVP (13:49)
--- NOTE | 2020-09-17 16:25 | PC.NURSE ---
Rcvd verbal order from Dr Enriquez to type and screen blood and administer 1 unit of PRBC. Drapery Rod Assembler put order in for type and screen and 1 unit blood.
--- NOTE | 2020-09-17 16:26 | PC.NURSE ---
consent for blood signed and placed in file.
[2020-09-17 17:28] LABS: Glucose Point of Care 109 mg/dL (70-110)
[2020-09-17] MEDS: atorvastatin 40 mg Tablet PO (20:07)
[2020-09-17] MEDS: gabapentin 100 mg Capsule PO (20:07)
[2020-09-17 20:44] LABS: Glucose Point of Care 158 mg/dL (70-110)
[2020-09-17] MEDS: tizanidine 4 mg Tablet PO (23:14)
[2020-09-18 00:05] VITALS: BP 123/75; PULSE 98; RESP 17; TEMP 36.7; O2SAT 96
[2020-09-18 00:28] VITALS: BP 130/73; PULSE 95; RESP 18; TEMP 36.5; O2SAT 96
[2020-09-18 01:05] VITALS: BP 126/72; PULSE 90; RESP 16; TEMP 36.8; O2SAT 96
[2020-09-18 02:42] LABS: Basophils # 0.1 10^3/uL (0.0-0.1); Basophils % 0.5 %; Eosinophils # 0.2 10^3/uL (0.0-0.8); Eosinophils % 1.5 %; Hematocrit 27.3 % (37.0-47.0); Hemoglobin 8.4 g/dL (11.5-15.3); Lymphocytes # 1.4 10^3/uL (0.8-4.8); Lymphocytes % 14.6 %; Mean Corpuscular HGB Conc 30.8 g/dL (30.0-36.0); Mean Corpuscular Hemoglobin 27.5 pg (28.0-34.0); Mean Corpuscular Volume 89.2 fL (81-99); Mean Platelet Volume 8.3 fL (7.4-10.4); Monocytes # 0.9 10^3/uL (0.2-0.9); Monocytes % 9.4 %; Neutrophils # 6.84 10^3/uL (1.8-7.7); Neutrophils % 69.8 %; Nucleated Red Blood Cells % 0.2 %; Platelet Count 466 10^3/cmm (130-400); Red Blood Count 3.06 10^6/uL (4.1-5.3); Red Cell Distribution Width 15.4 % (12.1-15.1); White Blood Count 9.8 10^3/uL (4.0-10.0)
[2020-09-18] MEDS: sodium chloride 0.9% (100 ml) 100 ML (03:21)
[2020-09-18 04:44] LABS: Vitamin B12 394 pg/mL (232-1245)
[2020-09-18 04:48] VITALS: BP 144/68; PULSE 97; RESP 18; TEMP 37.1; O2SAT 98
[2020-09-18] MEDS: acetaminophen 325 mg Tablet 650 MG PO (05:33)
[2020-09-18 07:06] LABS: Glucose Point of Care 106 mg/dL (70-110)
--- NOTE | 2020-09-18 07:16 | PM.PN ---
Subjective Subjective: Interval history: doing well pain controlled Vitals/I&O/Wt Last Vital Signs Temp 98.8 F 09/18/20 04:48 Pulse 97 09/18/20 04:48 Resp 18 09/18/20 04:48 BP 144/68 09/18/20 04:48 Pulse Ox 98 09/18/20 04:48 09/17/20 09/18/20 09/18/20 22:59 06:59 14:59 Intake Total 610 / 1460 450 / 1910 Output Total 0 / 0 1000 / 1000 Balance 610 / 1460 -550 / 910 Physical Exam Narrative: EXAM NARRATIVE: wound CDI sitting at bedside about to take a shower Data : 09/18/20 02:20 09/17/20 02:23 Micro: Microbiology 09/13/20 06:00 Blood Culture - Final Blood NO GROWTH AFTER 5 DAYS 09/13/20 05:50 Blood Culture - Final Blood NO GROWTH AFTER 5 DAYS 09/11/20 11:30 Gram Stain - Final Back Anaerobic Culture - Preliminary Wound Culture - Final Staphylococcus epidermidis A&P Additional A&P Information s/p I+D back wound Attestations Medical Necessity Statement*: d/c today Coding Level of Care Code Acute Solar Development Engineer for Rafia Anguiano
[2020-09-18 08:00] VITALS: BP 130/64; PULSE 113; RESP 18; TEMP 36.4; O2SAT 100
--- NOTE | 2020-09-18 08:28 | P.DS_ITS ---
Discharge Providers Date of Admission: 09/10/20 12:11 Date of Discharge: September 18, 2020 Attending Provider at Admission: Itzel Feldman MD Attending Provider at Discharge: Francisco Enriquez MD Primary Care Provider: Sydnie Gooden MD Diagnoses at Discharge Discharge Diagnosis (1) Sepsis: Status: Resolved Qualifiers: Sepsis acute organ dysfunction status: unspecified Sepsis type: sepsis due to unspecified organism Qualified Code(s): A41.9 - Sepsis, unspecified organism (2) Anemia due to blood loss, acute: Status: Chronic (3) Complication, postoperative infection: Status: Resolved Qualifiers: Encounter type: initial encounter Postoperative infection type: unspecified type Qualified Code(s): T81.40XA - Infection following a procedure, unspecified, initial encounter (4) Sinus tachycardia: Status: Acute (5) Hypertension: Status: Acute Qualifiers: Hypertension type: essential hypertension Qualified Code(s): I10 - Essential (primary) hypertension Reason for Visit Reason for Visit: LOW BACK PAIN, POSSIBLE SEPSIS Hospital Course Hospital Course 69 year old female with a past medical history of hypertension, hyperlipidemia, diabetes mellitus on Metformin, that 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 Pst op course notable for development of seroma followed as oupatient, went for follow up with PCP and noted to be hypotensive and tachycardic, and was sent to ER.During the hospital stay she was managed for sepsis likely 2/2 to large fluid collection/possible abscess in the laminectomy bed extending L2-L5. Status post I&D in the OR on September 11, extending in the deep bed. Culture taken in the OR, cultures show staph epidermidis, however this needs to be interpreted with caution as patient was on an extended course of Bactrim since August 26. Patient has other concerning signs of deep infection with possible extension down to bone/hardware as evidenced by leukocytosis of 22, now resolved with I&D and antibiotic therapy, elevated ESR greater than 120, CRP greater than 320. she was continued on vancomycin with trough monitoring, goal trough 15-20. She was discharged on IV vancomycin course for 6 weeks given complicated deep- seated infection extending down to bone and hardware with failure of outpatient antibiotic regimen with Bactrim. Blood cultures 1 of 4+ for coag negative staph, likely to be contaminant. While on the above regimen, patient will need weekly labs including CBC CMP and vancomycin trough monitoring. PICC line was placed and she will follow with I.D as outpatient. During the hospital stay she also received 1 u prbc transfusion for anaemia likely 2/2 blood loss.At the time of discharge her hb was stable at 8.4. She responded well to the above medical management and is being discharged in stable condition. Physical Exam Const: COMMON NORMALS: patient oriented x3 Resp: COMMON NORMALS: clear to auscultation bilaterally AUSCULTATION: clear to auscultation bilaterally Cardio: COMMON NORMALS: S1 normal heart sound present, S2 normal heart sound present and Peripheral pulses 2+ throughout HEART SOUNDS: S1 normal heart sound present and S2 normal heart sound present PERIPHERAL PULSES: Peripheral pulses 2+ throughout GI: COMMON NORMALS: Normal to inspection, nondistended, normoactive bowel sounds present, Soft to palpation, non-tender, No hepatosplenomegaly present and no masses AUSCULTATION: Yes normoactive bowel sounds PALPATION: Yes Soft to palpation and Yes No hepatosplenomegaly present RECTAL EXAM: deferred Extremity: COMMON NORMALS: no clubbing, cyanosis or edema and no pedal edema OTHER: Lower back wound is clean and dry, no discharge, no evidence of cellulitis. Neuro: COMMON NORMALS: patient oriented x3 Discharge Data Data Completed and Pending: Completed Studies During Hospitalization Category Date Time Status CT lumbar spine w con [id number] Stat Cat Scan 09/10/20 09:31 Completed FL barium swallow modifd [id number] Rout ine Exams 09/13/20 08:00 Completed XR chest 1V alex ble [id number] Routine Exams 09/16/20 09:36 Completed XR chest 1V alex ble [id number] Stat Exams 09/10/20 09:29 Completed Pending at discharge Category Date Time Status Anaerobic Culture Routine Lab 09/11/20 11:30 Results Wound Culture and Gram Stain Routin e Lab 09/11/20 11:30 Results Labs from last 24 hours 09/18/20 09/18/20 09/18/20 06:38 02:20 02:20 WBC RBC Hgb Hct MCV MCH MCHC RDW Plt Count MPV Neut % (Auto) Lymph % (Auto) Morrow % (Auto) Eos % (Auto) Baso % (Auto) Neut # (Auto) Lymph # (Auto) [place]row # (Auto) Eos # (Auto) Baso # (Auto) Nucleated RBC % (a uto) Nucleated RBCs # POC Glucose 106 Iron TIBC % Saturation Unsat Iron Binding Transferrin Ferritin Vitamin B12 394 Folate Blood Type Rho(D) Type Antibody Screen Crossmatch 09/18/20 09/17/20 09/17/20 02:20 20:14 18:00 WBC 9.8 RBC 3.06 L Hgb 8.4 L Hct 27.3 L MCV 89.2 MCH 27.5 L MCHC 30.8 RDW 15.4 H Plt Count 466 H MPV 8.3 Neut % (Auto) 69.8 Lymph % (Auto) 14.6 Morrow % (Auto) 9.4 Eos % (Auto) 1.5 Baso % (Auto) 0.5 Neut # (Auto) 6.84 Lymph # (Auto) 1.4 Morrow # (Auto) 0.9 Eos # (Auto) 0.2 Baso # (Auto) 0.1 Nucleated RBC % (a uto) 0.2 Nucleated RBCs # 0.0 POC Glucose 158 H Iron TIBC % Saturation Unsat Iron Binding Transferrin Ferritin Vitamin B12 Folate Blood Type A Negative Rho(D) Type Negative / 0 Antibody Screen Negative Crossmatch See Detail 09/17/20 09/17/20 09/17/20 17:09 11:45 02:23 WBC RBC Hgb Hct MCV MCH MCHC RDW Plt Count MPV Neut % (Auto) Lymph % (Auto) Morrow % (Auto) Eos % (Auto) Baso % (Auto) Neut # (Auto) Lymph # (Auto) Morrow # (Auto) Eos # (Auto) Baso # (Auto) Nucleated RBC % (a uto) Nucleated RBCs # POC Glucose 109 93 Iron 14 L TIBC 157 % Saturation 8.9 L Unsat Iron Binding 143 Transferrin 118 L Ferritin 512 H Vitamin B12 Folate Blood Type Rho(D) Type Antibody Screen Crossmatch Vitals: Last Vital Signs Temp 98.8 F 09/18/20 04:48 Pulse 97 09/18/20 04:48 Resp 18 09/18/20 04:48 BP 144/68 09/18/20 04:48 Pulse Ox 98 09/18/20 04:48 Discharge Plan Discharge Patient Disposition: Home Condition: Stable Prescriptions: New ferrous sulfate 325 mg (65 mg iron) tablet 325 mg PO DAILY Qty: 30 RF: 3 Continued atorvastatin 40 mg tablet 40 mg PO DAILY@20 RF: 0 pantoprazole 20 mg tablet,delayed release (DR/EC) 20 mg PO DAILY@08 RF: 0 meloxicam 15 mg tablet 15 mg PO DAILY@08 RF: 0 cyclobenzaprine 5 mg tablet 5 mg PO TID PRN (Reason: muscle spasm) Qty: 21 RF: 0 lisinopril 20 mg tablet 20 mg PO DAILY@08 RF: 0 glucosamine sulfate [Glucosamine] 500 mg Tablet 500 mg PO DAILY@08 RF: 0 tramadol 50 mg tablet 50 mg PO Q6H PRN (Reason: pain) Qty: 30 RF: 0 gabapentin 100 mg capsule 100 mg PO BEDTIME@20 RF: 0 metformin 500 mg tablet extended release 24 hr 500 mg PO DAILY@08 RF: 0 tizanidine 4 mg Tablet 4 mg PO TID PRN (Reason: Muscle Pain) RF: 0 Held aspirin [Adult Low Dose Aspirin] 81 mg tablet,delayed release (DR/EC) 81 mg PO DAILY@08 RF: 0 Hold Instructions: Resume on 09/25/20. Discharge Orders: Discharge Order (Routine); Ordered 09/18/20 Ordered By: Francisco Enriquez Referrals: [facility] [Other] [facility] [Other] Sydnie Gooden MD [Primary Care Provider] - Marcello Wesley DO [Physician] - 10/10/20 8:45 am (Follow-up with orthopedics in 3 weeks) Itzel Feldman MD [Hospitalist] - 10/15/20 12:00 pm (Follow-up in infectious disease office in [address] Phone #[phone].) Discharge Diet: Regular Discharge Activity: Resume usual activity Patient Instructions: Hypertension, Sepsis (DC), Anemia (DC) Activity Restrictions/Additional Instructions: Patient will need weekly CBC CMP, vancomycin trough to be checked by home infusion company and fax results to infectious disease office for review. Call the infectious disease office at [phone] for any abnormal vancomycin trough. Goal trough at 15-20. Discharge Attestations Time Spent in Discharge Care*: less than 30 min Specific Discharge Activities: educating patient, educating and/or supporting family/caregiver, discussing with pcp/other providers, discussing with director case management/social workers/dc planners, documenting/other paperwork and evaluating patient/reviewing data Status at Discharge: Cognitive status at discharge: cognitively intact , Behavioral status at discharge: cooperative , Functional status at discharge: independent ambulation Overall status at discharge: patient is back to baseline Quality Metrics Clinical Quality Measures During this hospital stay, did patient experience: None Coding Level of Care Code Acute Chg FW DC note Diagnoses Sepsis A41.9 Sepsis acute organ dysfunction status: unspecified Sepsis type: sepsis due to unspecified organism Anemia due to blood loss, acute D62 Complication, postoperative infection T81.40XA Encounter type: initial encounter Postoperative infection type: unspecified type Sinus tachycardia R00.0 Hypertension I10 Hypertension type: essential hypertension
[2020-09-18 08:39] VITALS: BP 144/68; PULSE 97; RESP 18; TEMP 37.1; O2SAT 98
[2020-09-18] MEDS: aspirin 81 mg EC Tablet PO (09:49)
[2020-09-18] MEDS: ferrous sulfate EC 325 mg Tablet PO (09:49)
[2020-09-18] MEDS: metoprolol succinate ER (24 HR) 25 mg Tablet PO (09:49)
[2020-09-18] MEDS: docusate sodium 100 mg Capsule PO (09:50)
[2020-09-18] MEDS: pantoprazole DR 40 mg Tablet PO (09:50)
== END 2020-09-18 10:30 | disposition home or self-care (01) | DRG 854 ==
LOC: ER 12:17 → MEDSURG 12:25
PROVIDERS: Orthopaedic Surgery; Admitting Provider Student in an Organized Health Care Education/Training Program; Emergency Provider Family Medicine; PCP Internal Medicine; Visit Provider Internal Medicine
PROC: 0J970ZZ Drainage of Back Subcutaneous Tissue and Fascia, Open Approach (ICD-10-PCS; principal; 2020-09-11 15:00)
DX: A41.9 Sepsis, unspecified organism (principal); M96.842 Postprocedural seroma of a musculoskeletal structure following a musculoskeletal system procedure; T81.40XA Infection following a procedure, unspecified, initial encounter; L02.212 Cutaneous abscess of back [any part, except buttock and flank]; D62 Acute posthemorrhagic anemia; Z98.1 Arthrodesis status; I95.9 Hypotension, unspecified; I10 Essential (primary) hypertension; E11.9 Type 2 diabetes mellitus without complications; K21.9 Gastro-esophageal reflux disease without esophagitis; E78.00 Pure hypercholesterolemia, unspecified; Z96.653 Presence of artificial knee joint, bilateral; Y83.8 Other surgical procedures as the cause of abnormal reaction of the patient, or of later complication, without mention of misadventure at the time of the procedure; Y79.8 Miscellaneous orthopedic devices associated with adverse incidents, not elsewhere classified; E78.5 Hyperlipidemia, unspecified; B95.7 Other staphylococcus as the cause of diseases classified elsewhere
CPT/HCPCS: 36415; 36416; 36430; 36569; 71045; 72132; 74230; 80048; 80053; 80202; 81003; 82550; 82607; 82728; 82746; 82962; 83540; 83550; 83605; 83690; 83735; 84145; 84466; 85025; 85651; 86140; 86850; 86900; 86920; 87040; 87070; 87075; 87077; 87186; 87205; 87635; 92610; 92611; 96365; 96366; 96372; 97110; 97116; 97161; 97530; 99285; J0690; J1100; J1650; J1815; J1885; J2405; J2543; J2704; J2710; J3010; J3370; J3490; J7030; J7040; J7050; P9016; Q9967

== ENCOUNTER → 2020-10-10 14:23 | Outpatient (BNVA) | payer MEDICARE, OTHER, SELFPAY | PROVIDERS: PCP Internal Medicine; Visit Provider Orthopaedic Surgery | DX: Z48.89 Encounter for other specified surgical aftercare (principal); Z98.1 Arthrodesis status | CPT/HCPCS: 72100 ==

== ENCOUNTER → 2020-10-29 11:36 | Outpatient (BNVA) | payer MEDICARE, OTHER, SELFPAY | PROVIDERS: PCP Internal Medicine; Visit Provider Orthopaedic Surgery | DX: Z48.89 Encounter for other specified surgical aftercare (principal); Z98.1 Arthrodesis status | CPT/HCPCS: 72072; 72100; 85025; 85651; 86140 ==

== ENCOUNTER 2020-11-21 14:23 | Outpatient (CLI) | payer MEDICARE, OTHER, SELFPAY ==
--- NOTE | 2020-11-21 | XR_ITS ---
WS: [id number] LEFT FOOT: 3 VIEW(S) TECHNIQUE: AP, oblique and lateral. HISTORY: LEFT FOOT PAIN COMPARISON: None available. No acute fracture or dislocation. Normal tarsal/metatarsal alignment. No soft tissue abnormality or bone destruction. Small calcaneal spur. XR/XR foot LT min 3V* [id number] IMPRESSION: Small calcaneal spur. No fractures.
== END 2020-11-21 14:24 | disposition home or self-care (01) ==
PROVIDERS: PCP Internal Medicine; Visit Provider Internal Medicine
DX: M79.672 Pain in left foot (principal); M77.32 Calcaneal spur, left foot
CPT/HCPCS: 73630

== ENCOUNTER 2020-11-28 14:48 | Outpatient (CLI) | payer MEDICARE, OTHER, SELFPAY ==
--- NOTE | 2020-11-28 15:00 | USCV_ITS ---
Inna Mohr Age: 70 Gender: F : 1950 Exam Date: 11/28/2020 15:16 Ordering Phys: Itzel Feldman MD Technologist: RYANN Exam Location: [facility] Indication: Bacteremia BP: 110 / 70 HR: 105 Rhythm: Sinus Technical Quality: Adequate MEASUREMENTS (Male / Female) Normal Values 2D ECHO LV Diastolic Diameter PLAX 4.3 cm 4.2 - 5.9 / 3.9 - 5.3 cm LV Systolic Diameter PLAX 2.4 cm IVS Diastolic Thickness 1.3 cm 0.6 - 1.0 / 0.6 - 0.9 cm IVS Systolic Thickness 1.9 cm LVPW Diastolic Thickness 1.2 cm 0.6 - 1.0 / 0.6 - 0.9 cm LVPW Systolic Thickness 1.8 cm LVOT Diameter 2.0 cm LV Ejection Fraction 2D Teich 75.1 % LV Ejection Fraction MOD 2C 51.1 % LV Ejection Fraction 2C AL 52.0 % LA Diameter 3.1 cm LA Width 3.5 cm LA Height 0.0 cm RA Width 3.1 cm RA Height 2.9 cm Aorta at Sinotubular Diameter 2.5 cm M-MODE LV Diastolic Diameter MM 4.2 cm 4.2 - 5.9 / 3.9 - 5.3 cm LV Systolic Diameter MM 2.6 cm LV Ejection Fraction MM Teich 69.4 % IVS Diastolic Thickness MM 1.4 cm 0.6 - 1.0 / 0.6 - 0.9 cm IVS Systolic Thickness MM 2.1 cm LVPW Diastolic Thickness MM 1.3 cm 0.6 - 1.0 / 0.6 - 0.9 cm LVPW Systolic Thickness MM 1.7 cm Aortic Annulus Diameter 2.8 cm LA Ao Ratio MM 1.3 MV E Point Septal Separation 0.3 cm DOPPLER AV Peak Velocity 119.0 cm/s LVOT Peak Velocity 80.0 cm/s AV Area Cont Eq vti 2.1 cm squared AV Area Cont Eq pk 2.1 cm squared MV Peak Velocity 98.0 cm/s MV Area PHT 3.9 cm squared Mitral E to A Ratio 0.7 MV E' Velocity 33.5 cm/s Mitral E to MV E' Ratio 12.0 Mitral E to LV E' Lateral Ratio 8.3 Mitral E to LV E' Septal Ratio 22.2 TR Peak Velocity 239.0 cm/s TR Peak Gradient 22.8 mmHg TV Peak E Velocity 64.0 cm/s Right Atrial Pressure 3.0 mmHg Pulmonary Artery Systolic Pressu 25.8 mmHg PV Peak Velocity 120.0 cm/s RV Acceleration Time 0.1 s RV Ejection Time 0.2 s RV AcT/ET 0.3 FINDINGS Left Ventricle Normal left ventricular size, systolic function with no regional wall motion abnormalities. Left ventricular ejection fraction is estimated at 60 %. Grade I diastolic dysfunction (abnormal relaxation filling pattern), normal to mildly elevated filling pressures. Right Ventricle Normal right ventricular size and systolic function. Right ventricular systolic pressure 25.8 mmHg. Right Atrium Normal right atrial size. Left Atrium Normal left atrial size. Mitral Valve Mitral valve not well visualized. No mitral valve stenosis. No significant mitral valve regurgitation. Aortic Valve Aortic valve not well visualized. Tricuspid Valve Tricuspid valve not well visualized. Pulmonic Valve Pulmonic valve not well visualized. No pulmonary valve stenosis. Trace pulmonary valve regurgitation. Pericardium No pericardial effusion. Aorta Normal size aortic root and proximal ascending aorta. CONCLUSIONS 1. Normal left ventricular size, systolic function with no regional wall motion abnormalities. Left ventricular ejection fraction is estimated at 60 %. Grade I diastolic dysfunction (abnormal relaxation filling pattern), normal to mildly elevated filling pressures. 2. Valves not well visualized. 3. Pulmonary artery pressure estimated at 26 mm Hg. 4. CORAL may be considered, if clinically indicated. Madhavi Jesus MD (Electronically Signed) Final Date: 01 December 2020 13:13 S
== END 2020-11-28 14:49 | disposition home or self-care (01) ==
LOC: RAD 14:51
PROVIDERS: PCP Internal Medicine; Visit Provider Student in an Organized Health Care Education/Training Program
DX: R78.81 Bacteremia (principal)
CPT/HCPCS: 93306

== ENCOUNTER 2020-12-03 10:41 | Outpatient (CLI) | payer MEDICARE, OTHER, SELFPAY ==
--- NOTE | 2020-12-03 10:55 | XR_ITS ---
WS: [id number] Exam: XR sacroiliac jts m 3V [id number] Date/Time of Exam: 12/03/2020 11:04 AM Reason For Exam: SI JOINT PAIN-RIGHT There are posterior rods and pedicle screws identified throughout the visualized lumbosacral spine. S crews also bridge the right and left SI joints. There is moderate degenerative change of both SI join ts most marked on the right. No fracture or bone destruction is seen. No sign of hardware failure. Th ere are disc spacers at L5-S1 and L4-5. XR/XR sacroiliac jts m 3V [id number] IMPRESSION: 1. 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 2. Orthopedic screws bridge both SI joints. 3. No fracture or obvious bone destruction. Additional findings as detailed abo ve.
== END 2020-12-03 10:42 | disposition home or self-care (01) ==
PROVIDERS: PCP Internal Medicine; Visit Provider Nurse Practitioner Family
DX: M53.3 Sacrococcygeal disorders, not elsewhere classified (principal)
CPT/HCPCS: 72202

== ENCOUNTER → 2020-12-10 12:56 | Outpatient (BNVA) | payer MEDICARE, OTHER, SELFPAY | PROVIDERS: PCP Internal Medicine; Visit Provider Orthopaedic Surgery | DX: Z48.89 Encounter for other specified surgical aftercare (principal); Z98.1 Arthrodesis status; M43.16 Spondylolisthesis, lumbar region; M47.814 Spondylosis without myelopathy or radiculopathy, thoracic region | CPT/HCPCS: 72070; 72100 ==

== ENCOUNTER → 2021-03-13 09:22 | Outpatient (BNVA) | payer MEDICARE, OTHER, SELFPAY | PROVIDERS: PCP Internal Medicine; Visit Provider Orthopaedic Surgery | DX: Z47.89 Encounter for other orthopedic aftercare (principal); Z98.1 Arthrodesis status | CPT/HCPCS: 72100 ==

== ENCOUNTER 2021-05-18 09:26 | Emergency (ER) | payer MEDICARE, OTHER, SELFPAY ==
[2021-05-18 09:38] VITALS: BP 168/77; PULSE 96; RESP 16; TEMP 36.4; O2SAT 96; BMI 27.3
--- NOTE | 2021-05-18 10:04 | ED_ITS ---
HPI - URI/Sore Throat General: Chief Complaint: Upper Respiratory Infection Stated Complaint: SINUS DRAINAGE/COUGH Time Seen by Provider: 05/18/21 09:52 Source: patient Mode of arrival: ambulatory Limitations: no limitations History of Present Illness: HPI Narrative: 70-year-old female presents to the ER today for a cough, congestion, runny nose, hoarse voice, scratchy throat x3 days. Patient denies any fever or chills. Patient reports she is up-to-date on her Covid vaccinations and has also had her booster shot. Patient reports she has been taking Coricidin at home with no improvement. She reports being tired but otherwise no symptoms. Denies any sick contacts. Patient denies any headache, chest pain, shortness of breath, nausea, vomiting, diarrhea, constipation. MD elicited complaint: cough, sore throat, rhinorrhea and nasal congestion Onset (ago): day(s) (3) Consistency: constant Severity: moderate Description of mucous: clear Able to tolerate fluids by mouth: Yes Relieving factors: OTC cold medicine Associated symptoms: Reports congestion, cough, nasal congestion and rhinorrhea; Deny abdominal pain, chills, chest pain, diarrhea, fever(s), headache(s), nausea, sinus pain or vomiting Treatments prior to arrival: cold medicine Review of Systems General: Reports: 10 or more systems reviewed and unremarkable except in HPI and below Const: Reports: fatigue; Denies: fever(s), chills or body aches ENMT: Reports: throat pain, nasal discharge and nasal congestion; Denies: sinus pain Card: Denies: chest pain or palpitations Resp: Reports: productive cough and chest congestion; Denies: dyspnea or wheezing GI: Denies: abdominal pain, nausea, vomiting, diarrhea or constipation Skin/Breast: Denies: rash or pruritus Neuro: Denies: headache(s) PFSH ED PFSH: Medical History Accelerated essential hypertension Anemia due to blood loss, acute Complication, postoperative infection Diabetes Gastroesophageal reflux High cholesterol History of revision of total replacement of left knee joint Hypertension Sepsis Sinus tachycardia Spinal abscess Surgical History H/O: hysterectomy History of back surgery History of carpal tunnel surgery of left wrist History of carpal tunnel surgery of right wrist History of lumbar surgery History of total left knee replacement History of total right knee replacement Hx of repair of rotator cuff Family History Mother Diabetes Hypertension CAD (coronary artery disease) Grandmother Stroke Social History Smoking and tobacco status: never smoked Alcohol intake: never Physical Exam Const: COMMON NORMALS: no acute distress, average body habitus and patient oriented x3 GENERAL APPEARANCE: cooperative and comfortable HENMT: COMMON NORMALS: normocephalic, atraumatic, external ears normal, TM's normal bilaterally and Normal external nose present HEAD & SCALP: normocephalic and atraumatic FACE & SINUS: sinuses nontender NOSE: Normal external nose present, Abnormal mucous membranes and turbinates present erythematous and Nasal discharge present clear EXTERNAL EAR: Yes external ears normal TYMPANIC MEMBRANE: TM's normal bilaterally THROAT: posterior oropharynx normal Eye: COMMON NORMALS: conjunctivae normal CONJUNCTIVA: Yes conjunctivae normal Neck/C-Spine: COMMON NORMALS: full ROM and no lymphadenopathy Resp: COMMON NORMALS: normal respiratory effort, No retractions and clear to auscultation bilaterally EFFORT & INSPECTION: Yes able to speak in complete sentences AUSCULTATION: clear to auscultation bilaterally, no rales, no rhonchi, no wheezes and lung sounds not diminished Cardio: COMMON NORMALS: regular rate, regular rhythm and No murmurs present (Cardio) RATE: regular rate RHYTHM: regular rhythm GI: COMMON NORMALS: Normal to inspection, nondistended, normoactive bowel so unds present and non-tender Extremity: COMMON NORMALS: normal to inspection Neuro: COMMON NORMALS: patient oriented x3 and moves all extremities Psych: COMMON NORMALS: mental status grossly normal, Normal thought process present and cooperative THOUGHT PROCESS: Normal thought process present Skin: COMMON NORMALS: no rashes or lesions noted GENERAL SKIN EXAM: no rashes or lesions noted Course ED course: Patient presents to the ER today for cough, congestion, runny nose, sore throat. Patient is up-to-date on her Covid vaccinations. She has tried [id number] medications with minimal relief. Patient's vitals taken in the ER and are stable. We will treat for a URI at this time. I do not suspect influenza or Covid. Vital Signs: Vital signs: Vital Signs Temperature 97.5 F L 05/18/21 09:38 Pulse Rate 96 05/18/21 09:38 Respiratory Rate 16 05/18/21 09:38 Blood Pressure 168/77 05/18/21 09:38 Pulse Oximetry 96 05/18/21 09:38 MDM - URI/Sore Throat MDM Narrative: Medical decision making narrative: 7-year-old female presents to the ER today for upper respiratory symptoms. She has been taking Coricidin [id number] with minimal relief. We will change to Mucinex and add Tessalon Perles to help patient rest at night. Recommend patient increase fluid intake at this time. Rest recommended. Discussed the normal course of this condition, including that this typically peaks in 4 to 7 days. Return to the ER with any new or worsening symptoms. Follow-up with PCP in 5 to 7 days. Patient verbalized understanding and is in agreement with this treatment plan Critical Care Time Critical Care Time: Critical Care Time: No Discharge Plan Discharge Patient Disposition: Home Clinical Impression: Viral URI with cough Condition: Stable Prescriptions: New Mucus Relief ER 1,200 mg tablet extended release 12hr 1,200 mg PO BID PRN (Reason: cough/josé luis) Qty: 14 RF: 0 Tessalon Perles 100 mg capsule 100 mg PO TID PRN (Reason: cough) Qty: 30 RF: 0 No Action levofloxacin 750 mg tablet 750 mg PO DAILY 30 Days Qty: 30 RF: 0 levofloxacin 500 mg tablet 500 mg PO DAILY 90 Days Qty: 90 RF: 1 atorvastatin 40 mg tablet 40 mg PO DAILY@20 RF: 0 pantoprazole 20 mg tablet,delayed release (DR/EC) 20 mg PO DAILY@08 RF: 0 meloxicam 15 mg tablet 15 mg PO DAILY@08 RF: 0 aspirin [Adult Low Dose Aspirin] 81 mg tablet,delayed release (DR/EC) 81 mg PO DAILY@08 RF: 0 Hold Instructions: Resume on 09/25/20. ([facility]) [id number] Bone Growth Stimulator See Rx Instructions .Route .MEDSUPPLY Qty: 1 RF: 0 lisinopril 20 mg tablet 20 mg PO DAILY@08 RF: 0 glucosamine sulfate [Glucosamine] 500 mg Tablet 500 mg PO DAILY@08 RF: 0 tramadol 50 mg tablet 50 mg PO Q6H PRN (Reason: pain) Qty: 30 RF: 0 gabapentin 100 mg capsule 400 mg PO TID RF: 0 ferrous sulfate 325 mg (65 mg iron) tablet 325 mg PO DAILY Qty: 30 RF: 3 Discharge Orders: Discharge ED (Routine); Ordered 05/18/21 Ordered By: Lady Cr Referrals: Sydnie Gooden MD [Primary Care Provider] - Discharge Diet: Usual diet Discharge Activity: Resume usual activity Patient Instructions: Upper Respiratory Infection (ED), Opioid Safety Activity Restrictions/Additional Instructions: Take Mucinex and Tessalon Perles as prescribed. Increase fluid intake. Rest recommended. Follow-up with PCP in 5 to 7 days if no improvement. Return to the ER with any new or worsening symptoms. Coding Level of Care Code ED Track Repairer for Rafia Anguiano
[2021-05-18 10:11] VITALS: BP 168/77; PULSE 96; RESP 16; TEMP 36.4; O2SAT 96
== END 2021-05-18 10:12 | disposition home or self-care (01) ==
PROVIDERS: Emergency Provider Physician Assistant; PCP Internal Medicine
DX: J06.9 Acute upper respiratory infection, unspecified (principal); Z79.82 Long term (current) use of aspirin; I10 Essential (primary) hypertension; E11.9 Type 2 diabetes mellitus without complications
CPT/HCPCS: 99281

== ENCOUNTER 2021-05-19 14:29 | Outpatient (CLI) | payer MEDICARE, OTHER, SELFPAY ==
--- NOTE | 2021-05-19 15:00 | US_ITS ---
WS: [id number] INDICATION: Left foot pain. Concern for Wallace's neuroma between the first and second toes TECHNIQUE: Ultrasound plantar foot area of concern. FINDINGS: Ultrasound dorsal and plantar left foot area of concern between the first and second toes. Normal underlying soft tissue between the first and second metatarsals. No well-circumscribed lesions to correspond to a Wallace's neuroma. No drainable fluid collections. US/US soft tissue/extremity [id number] IMPRESSION: No visualized Wallace's neuroma between the first and second metatar sals.
== END 2021-05-19 14:30 | disposition home or self-care (01) ==
LOC: RAD 14:32
PROVIDERS: PCP Internal Medicine; Visit Provider Podiatrist Foot & Ankle Surgery
DX: M79.672 Pain in left foot (principal)
CPT/HCPCS: 76882

== ENCOUNTER 2021-06-25 08:08 | Outpatient (CLI) | payer MEDICARE, OTHER, SELFPAY ==
--- NOTE | 2021-06-25 08:15 | MM_ITS ---
WS: [id number] BILATERAL DIGITAL SCREENING MAMMOGRAPHY WITH CAD CLINICAL INFORMATION: SCREENING HISTORY: Screening mammogram. No current complaints. COMPARISON: December 27, 2019 TECHNIQUE: Bilateral CC and MLO views. FINDINGS: Scattered fibroglandular densities bilaterally. A few tiny punctate calcifications. Vascular calcific ation. No suspicious focal mass, asymmetry, calcifications, or architectural distortion. No evidence of malignancy. MM/[place] [id number] IMPRESSION: BI-RADS: 2-Benign FOLLOW UP: 1 Year Follow-up Recommend return to annual screening mammography.
== END 2021-06-25 08:09 | disposition home or self-care (01) ==
LOC: RADSHAW 08:12
PROVIDERS: PCP Internal Medicine; Visit Provider Internal Medicine
DX: Z12.31 Encounter for screening mammogram for malignant neoplasm of breast (principal)
CPT/HCPCS: 77067

== ENCOUNTER → 2021-09-11 08:03 | Outpatient (BNVA) | payer MEDICARE, OTHER, SELFPAY | PROVIDERS: PCP Internal Medicine; Visit Provider Orthopaedic Surgery | DX: Z98.1 Arthrodesis status (principal); Z98.890 Other specified postprocedural states | CPT/HCPCS: 72100 ==

== ENCOUNTER 2021-09-29 16:08 | Outpatient (CLI) | payer MEDICARE, OTHER, SELFPAY ==
--- NOTE | 2021-09-29 16:45 | MR_ITS ---
WS: [id number] MRI LEFT FOOT with and without CONTRAST. COMPARISON: None Multiplanar, multisequence imaging is performed with and without contrast. Sagittal and axial T1 fat sat sequences post-MultiHance 17 cc IV. No marrow edema or fractures. The Lisfranc ligament is intact. Minimal narrowing of the first metatar sophalangeal joint. The sesamoid bones are normal signal. There is a very small amount of fluid surro unding the first metatarsal head which can be normal. No Wallace's neuroma is evident. No avascular ne crosis. Very minimal subchondral degenerative cystic changes are noted involving the distal articular surface of the medial cuneiform. There is a very small amount of edema seen on the T2 sequences between the mid to distal second and t hird, third and fourth metatarsal. The marrow is normal. On the postcontrast imaging there is no focal areas of abnormal enhancement. The limited postcontrast evaluation. Only a small portion of the LEFT foot is present on the axial postcontrast imaging. The soft tissue edema between the metatarsals does not enhance. Flexor hallucis longus tendon is normal. MR/MR foot LT wo/w con [id number] IMPRESSION: 1. No acute fracture or marrow edema. 2. Very minimal changes of osteoarthritis at the first metatarsophalangeal criss nt. 3. There is a very small amount of soft tissue edema between the second and th ird and third and fourth metatarsals associated with the intraosseous muscles o f uncertain etiology. There are no associated changes of rheumatoid arthritis. No fracture or marrow edema. Could be associated with a stress/repetitive use i njury.
== END 2021-09-29 16:09 | disposition home or self-care (01) ==
PROVIDERS: PCP Internal Medicine; Visit Provider Podiatrist Foot & Ankle Surgery
DX: M79.672 Pain in left foot (principal); M77.42 Metatarsalgia, left foot; R60.0 Localized edema
CPT/HCPCS: 73720

== ENCOUNTER → 2021-10-22 12:30 | Outpatient (BNVA) | payer MEDICARE, OTHER, SELFPAY | PROVIDERS: PCP Internal Medicine; Visit Provider Podiatrist Foot & Ankle Surgery | DX: M21.41 Flat foot [pes planus] (acquired), right foot (principal); M21.42 Flat foot [pes planus] (acquired), left foot; M21.621 Bunionette of right foot; M21.622 Bunionette of left foot; E11.42 Type 2 diabetes mellitus with diabetic polyneuropathy; M77.42 Metatarsalgia, left foot | CPT/HCPCS: 64455; J1100; J3301; J3490 ==

== ENCOUNTER → 2021-12-29 08:00 | Outpatient (BNVA) | payer MEDICARE, OTHER, SELFPAY | PROVIDERS: PCP Internal Medicine; Visit Provider Podiatrist Foot & Ankle Surgery | DX: M79.672 Pain in left foot (principal); M21.41 Flat foot [pes planus] (acquired), right foot; M21.42 Flat foot [pes planus] (acquired), left foot; M21.621 Bunionette of right foot; M21.622 Bunionette of left foot; G57.62 Lesion of plantar nerve, left lower limb; E11.42 Type 2 diabetes mellitus with diabetic polyneuropathy | CPT/HCPCS: 64455 ==

== ENCOUNTER → 2022-02-12 13:30 | Outpatient (BNVA) | payer MEDICARE, OTHER, SELFPAY | PROVIDERS: PCP Internal Medicine; Visit Provider Podiatrist Foot & Ankle Surgery | DX: M21.41 Flat foot [pes planus] (acquired), right foot (principal); M21.42 Flat foot [pes planus] (acquired), left foot; M21.621 Bunionette of right foot; M21.622 Bunionette of left foot; E11.42 Type 2 diabetes mellitus with diabetic polyneuropathy; Z79.84 Long term (current) use of oral hypoglycemic drugs; G57.62 Lesion of plantar nerve, left lower limb | CPT/HCPCS: 64455; J1100; J3301; J3490 ==

== ENCOUNTER 2022-02-24 13:19 | Outpatient (CLI) | payer MEDICARE, OTHER, SELFPAY ==
--- NOTE | 2022-02-24 13:30 | XR_ITS ---
WS: [id number] DEXA (DUAL ENERGY X-RAY ABSORPTIOMETRY) Bone mineral density was performed using a FloTime machine. HISTORY: ASYMPTOMATIC POSTMENOPAUSAL COMPARISON: None available. Left forearm BMD: 0.792 g/cm2. T score: -1.0 Z score: 1.0 Total hip BMD: Left: 0.918 g/cm2. T score: -0.7 Z score: 0.4 Right: 0.929 g/cm2. T score: -0.6 Z score: 0.5 10 year probability of a major osteoporotic fracture is 13.2%. XR/XR DEXA axial skeleton* [id number] IMPRESSION: Normal bone mineral density based upon the WHO classification for females.
== END 2022-02-24 13:20 | disposition home or self-care (01) ==
PROVIDERS: PCP Internal Medicine; Visit Provider Internal Medicine
DX: Z78.0 Asymptomatic menopausal state (principal)
CPT/HCPCS: 77080

== ENCOUNTER → 2022-04-09 13:56 | Outpatient (BNVA) | payer MEDICARE, OTHER, SELFPAY | PROVIDERS: PCP Internal Medicine; Visit Provider Podiatrist Foot & Ankle Surgery | DX: M21.41 Flat foot [pes planus] (acquired), right foot (principal); M21.42 Flat foot [pes planus] (acquired), left foot; M21.621 Bunionette of right foot; M21.622 Bunionette of left foot; E11.42 Type 2 diabetes mellitus with diabetic polyneuropathy; G57.62 Lesion of plantar nerve, left lower limb; Z79.84 Long term (current) use of oral hypoglycemic drugs | CPT/HCPCS: 99213 ==

== ENCOUNTER → 2022-04-28 12:41 | Outpatient (BNVA) | payer MEDICARE, OTHER, SELFPAY | PROVIDERS: PCP Internal Medicine; Visit Provider Podiatrist Foot & Ankle Surgery | DX: M21.41 Flat foot [pes planus] (acquired), right foot (principal); M21.42 Flat foot [pes planus] (acquired), left foot; M21.621 Bunionette of right foot; M21.622 Bunionette of left foot; E11.42 Type 2 diabetes mellitus with diabetic polyneuropathy; G57.62 Lesion of plantar nerve, left lower limb; Z79.84 Long term (current) use of oral hypoglycemic drugs | CPT/HCPCS: 64455 ==

== ENCOUNTER → 2022-05-06 08:36 | Outpatient (BNVA) | payer MEDICARE, OTHER, SELFPAY | PROVIDERS: PCP Internal Medicine; Visit Provider Podiatrist Foot & Ankle Surgery | DX: G57.62 Lesion of plantar nerve, left lower limb; M21.41 Flat foot [pes planus] (acquired), right foot; M21.42 Flat foot [pes planus] (acquired), left foot; M21.621 Bunionette of right foot; M21.622 Bunionette of left foot; E11.42 Type 2 diabetes mellitus with diabetic polyneuropathy; Z79.84 Long term (current) use of oral hypoglycemic drugs | CPT/HCPCS: 64455 ==

== ENCOUNTER → 2022-05-22 08:18 | Outpatient (BNVA) | payer MEDICARE, OTHER, SELFPAY | PROVIDERS: PCP Internal Medicine; Visit Provider Podiatrist Foot & Ankle Surgery | DX: M21.41 Flat foot [pes planus] (acquired), right foot (principal); M21.42 Flat foot [pes planus] (acquired), left foot; M21.621 Bunionette of right foot; M21.622 Bunionette of left foot; E11.42 Type 2 diabetes mellitus with diabetic polyneuropathy; G57.62 Lesion of plantar nerve, left lower limb; Z79.84 Long term (current) use of oral hypoglycemic drugs | CPT/HCPCS: 64455 ==

== ENCOUNTER → 2022-05-27 08:11 | Outpatient (BNVA) | payer MEDICARE, OTHER, SELFPAY | PROVIDERS: PCP Internal Medicine; Visit Provider Podiatrist Foot & Ankle Surgery | DX: G57.62 Lesion of plantar nerve, left lower limb (principal); M21.41 Flat foot [pes planus] (acquired), right foot; M21.42 Flat foot [pes planus] (acquired), left foot; M21.621 Bunionette of right foot; M21.622 Bunionette of left foot; E11.42 Type 2 diabetes mellitus with diabetic polyneuropathy; Z79.84 Long term (current) use of oral hypoglycemic drugs | CPT/HCPCS: 64455 ==

== ENCOUNTER → 2022-06-04 11:22 | Outpatient (BNVA) | payer MEDICARE, OTHER, SELFPAY | PROVIDERS: PCP Internal Medicine; Visit Provider Podiatrist Foot & Ankle Surgery | DX: Z71.89 Other specified counseling (principal); M21.41 Flat foot [pes planus] (acquired), right foot; M21.42 Flat foot [pes planus] (acquired), left foot; M21.621 Bunionette of right foot; M21.622 Bunionette of left foot; E11.42 Type 2 diabetes mellitus with diabetic polyneuropathy; G57.62 Lesion of plantar nerve, left lower limb; Z79.84 Long term (current) use of oral hypoglycemic drugs | CPT/HCPCS: 64455 ==

== ENCOUNTER → 2022-06-24 09:15 | Outpatient (BNVA) | payer MEDICARE, OTHER, SELFPAY | PROVIDERS: PCP Internal Medicine; Visit Provider Podiatrist Foot & Ankle Surgery | DX: G57.62 Lesion of plantar nerve, left lower limb (principal); M21.41 Flat foot [pes planus] (acquired), right foot; M21.42 Flat foot [pes planus] (acquired), left foot; M21.621 Bunionette of right foot; M21.622 Bunionette of left foot; E11.42 Type 2 diabetes mellitus with diabetic polyneuropathy; Z79.84 Long term (current) use of oral hypoglycemic drugs | CPT/HCPCS: 99213 ==

== ENCOUNTER 2022-08-09 14:05 | Emergency (ER) | payer MEDICARE, OTHER, SELFPAY ==
[2022-08-09 14:11] VITALS: BP 157/87; PULSE 105; RESP 16; TEMP 36.6; O2SAT 99; BMI 29.9
--- NOTE | 2022-08-09 14:42 | XRR_ITS ---
PROCEDURE INFORMATION: Exam: XR Lumbosacral Spine Exam date and time: 08/09/2022 3:01 PM Age: 71 years old Clinical indication: Injury or trauma; Fall; Blunt trauma (contusions or hematomas) TECHNIQUE: Imaging protocol: Radiologic exam of the lumbosacral spine. Views: 2 or 3 views. COMPARISON: CR XR lumbar spine 2-3V* [id number] 09/11/2021 8:10 AM FINDINGS: Bones/joints: There has been posterior thoracolumbar and lumbosacral fusion with bilateral pedicle screws from the T11 through the S1 levels. Interbody disc spacers are present at the L4-L5 and L5-S1 levels. Stabilization screws are present through the sacroiliac joint. Hardware appears intact without obvious complication. Grade 1 anterolisthesis of L3 on L4 appears stable when compared to the prior study. There are degenerative changes throughout the visualized spine including small marginal osteophyte formations and disc space narrowing. Soft tissues: Unremarkable. Gastrointestinal tract: Colonic constipation is present. Vasculature: There is calcified plaque in the aorta and iliac arteries. XR/XR lumbar spine 2-3V* [id number] IMPRESSION: There are degenerative and postoperative changes in the lumbar spine as described above. No evidence for acute fracture.
--- NOTE | 2022-08-09 14:42 | XRR_ITS ---
PROCEDURE INFORMATION: Exam: XR Right Shoulder Exam date and time: 08/09/2022 2:57 PM Age: 71 years old Clinical indication: Injury or trauma; Fall; Blunt trauma (contusions or hematomas); Shoulder; Right TECHNIQUE: Imaging protocol: Radiologic exam of the Right shoulder. Views: 2 or more views. COMPARISON: CR XR chest 2V* [id number] 08/09/2022 2:55 PM FINDINGS: Bones/joints: There are moderate degenerative changes across the acromioclavicular joint including inferior osteophyte formations. No evidence for acute fracture. Soft tissues: Normal. XR/XR shoulder RT min 2V* [id number] IMPRESSION: There are moderate degenerative changes across the acromioclavicular joint. No evidence for acute fracture.
--- NOTE | 2022-08-09 14:42 | XRR_ITS ---
PROCEDURE INFORMATION: Exam: XR Pelvis Exam date and time: 08/09/2022 2:57 PM Age: 71 years old Clinical indication: Injury or trauma; Fall; Blunt trauma (contusions or hematomas); Bilateral; Pelvic region TECHNIQUE: Imaging protocol: Radiologic exam of the pelvis. Views: 1 or 2 view. COMPARISON: CR XR hip RT 2-3V wo/w pel* [id number] 11/15/2018 12:18 PM FINDINGS: Bones/joints: There are postoperative changes in the visualized lumbosacral spine. Bilateral sacroiliac fusion. Hardware appears intact. There are small marginal osteophytes across the hip joints. [id number] degenerative changes across the pubic symphysis. There are mild degenerative changes across the left sacroiliac joint and moderate degenerative changes across the right sacroiliac joint. Soft tissues: There are benign-appearing soft tissue calcifications. XR/XR pelvis 1-2V* [id number] IMPRESSION: No evidence for acute fracture.
--- NOTE | 2022-08-09 14:42 | XRR_ITS ---
PROCEDURE INFORMATION: Exam: XR Chest Exam date and time: 08/09/2022 2:55 PM Age: 71 years old Clinical indication: Injury or trauma; Fall; Blunt trauma (contusions or hematomas) TECHNIQUE: Imaging protocol: Radiologic exam of the chest. Views: 2 views. COMPARISON: CR XR chest 1V portable [id number] 09/16/2020 9:41 AM FINDINGS: Lungs: Unremarkable. No consolidation. Pleural spaces: Unremarkable. No pleural effusion. No pneumothorax. Heart/Mediastinum: Unremarkable. No cardiomegaly. Vasculature: There is minimal calcified plaque in the aortic knob. Bones/joints: There are degenerative changes in the thoracic spine and across the acromioclavicular joints. There are posterior fusion changes in the visualized lower thoracic spine. XR/XR chest 2V* [id number] IMPRESSION: No evidence for acute cardiopulmonary disease.
--- NOTE | 2022-08-09 14:44 | ED_ITS ---
HPI - Fall General: Chief Complaint: Fall Stated Complaint: fall/ right shoulder and hip pain Time Seen by Provider: 08/09/22 14:13 History of Present Illness: Patient is a 71-year-old female that presents to the emergency department with complaints of right shoulder and hip pain. Adrian acosta reports she had a fall from standing taking a shower last night. As she fell she struck a seat then a floor rise and then the floor. She denies striking her head or LOC. She denies anticoagulation use Associated symptoms-after fall: Denies abdominal pain, chest pain, confusion, difficulty walking, headache(s), hematuria or neck pain Review of Systems General: Reports: 10 or more systems reviewed and unremarkable except in HPI and below Const: Denies: fever(s), chills, change in appetite, change in weight, fatigue or malaise Card: Denies: chest pain, palpitations, irregular heart rhythm, edema, dyspnea on exertion, orthopnea or leg pain with exertion Resp: Denies: dyspnea, productive cough, non-productive cough, wheezing, stridor or chest congestion GI: Denies: abdominal pain, nausea, vomiting, dysphagia, diarrhea, constipation, bloating, GI cramping or hematochezia : Denies: flank pain, difficulty voiding, dysuria, urinary frequency, urinary urgency, urinary hesitancy, oliguria or hematuria Musc: Denies: neck pain, back pain, extremity pain, joint pain, joint swelling, joint redness, joint warmth or muscle weakness Neuro: Denies: headache(s), numbness in extremities, weakness in extremities, sensory changes, lack of coordination, difficulty walking, frequent falls, dizziness, confusion, Slurred speech present, difficulty communicating thoughts, seizure-like activity or involuntary movements Endo: Denies: polyuria, polydipsia or tired all the time Ronak/Lymph: Denies: easy bruising or easy bleeding PFS ED PFSH: Medical History Accelerated essential hypertension Anemia due to blood loss, acute Complication, postoperative infection Diabetes Gastroesophageal reflux High cholesterol History of revision of total replacement of left knee joint Hypertension Sepsis Sinus tachycardia Spinal abscess Surgical History H/O: hysterectomy History of back surgery History of carpal tunnel surgery of left wrist History of carpal tunnel surgery of right wrist History of lumbar surgery History of total left knee replacement History of total right knee replacement Hx of repair of rotator cuff Family History Mother Diabetes Hypertension CAD (coronary artery disease) Grandmother Stroke Social History Smoking and tobacco status: never smoked Alcohol intake: never Physical Exam Const: COMMON NORMALS: no acute distress, patient oriented x3 and alert GENERAL APPEARANCE: cooperative ORIENTATION/CONSCIOUSNESS: Yes awake, Yes oriented to person, Yes oriented to place and Yes oriented to time HENMT: COMMON NORMALS: normocephalic and atraumatic HEAD & SCALP: normocephalic and atraumatic FACE & SINUS: normal facial exam MOUTH: Normal oral and palatal mucosa present THROAT: posterior oropharynx normal Eye: COMMON NORMALS: Equal, round and reactive pupils present, EOMs intact bilaterally, conjunctivae normal and no scleral icterus GENERAL EYE: appearance normal, both eyes and all related structures ALIGNMENT: Yes alignment normal PERIORBITAL: periorbital findings normal CONJUNCTIVA: Yes conjunctivae normal PUPIL: Yes Equal, round and reactive pupils present Neck/C-Spine: COMMON NORMALS: full ROM GENERAL: Yes normal visual inspection Lymph: LYMPHATIC: no lymphadenopathy noted Chest: COMMONS NORMALS: normal inspection of the chest Breast/axilla inspection: Yes no chest deformity, asymmetry, normal contours, no nodules, masses, tenderness Resp: COMMON NORMALS: normal respiratory effort, No retractions, No use of accessory muscles and clear to auscultation bilaterally EFFORT & INSPECTION: Yes able to speak in complete sentences and Yes symmetric chest movement AUSCULTATION: clear to auscultation bilaterally Cardio: COMMON NORMALS: regular rate, regular rhythm and Peripheral pulses 2+ throughout RATE: regular rate RHYTHM: regular rhythm PERIPHERAL PULSES: Peripheral pulses 2+ throughout GI: COMMON NORMALS: Normal to inspection, nondistended, normoactive bowel sounds present, Soft to palpation, non-tender and No hepatosplenomegaly present INSPECTION: Yes normal to inspection AUSCULTATION: Yes normoactive bowel sounds PALPATION: Yes Soft to palpation and Yes No hepatosplenomegaly present RECTAL EXAM: deferred Back/Pelvis: OTHER: Patient with fall from standing Reports right posterior shoulder pain Reports right buttock pain Patient has full active range of motion of elbow wrist and fingers on the right upper extremity. She is ambulatory without difficulty Patient is able to fire hip flexor and quad Anterior tibialis intact Patient is nontender to palpation over lateral hip or groin Extremity: COMMON NORMALS: normal to inspection GENERAL: Yes normal exam except as noted Neuro: COMMON NORMALS: patient oriented x3 SENSORIUM/ORIENTATION: Yes alert, Yes oriented to person, Yes oriented to place and Yes oriented to time CRANIAL NERVES: Yes CN normal except as noted Psych: COMMON NORMALS: mental status grossly normal, Normal thought process present, cooperative, activity/motor behavior normal, denies homicidal ideation and denies suicidal ideation THOUGHT PROCESS: Normal thought process present Skin: COMMON NORMALS: no rashes or lesions noted, no wounds and turgor normal GENERAL SKIN EXAM: no rashes or lesions noted and turgor normal Course Vital Signs: Vital signs: Vital Signs Temperature 97.8 F 08/09/22 14:11 Pulse Rate 105 H 08/09/22 14:11 Respiratory Rate 16 08/09/22 14:11 Blood Pressure 157/87 08/09/22 14:11 Pulse Oximetry 99 08/09/22 14:11 Oxygen Delivery Me thod 08/09/22 14:11 MDM - Fall Medical Decision Making Was evaluated in the emergency department for complaints of soreness in the right buttock and right posterior shoulder. She denies striking her head or LOC. Patient underwent XR imaging of chest, shoulder, lumbar spine and pelvis Imaging reveals no acute fractures or dislocations. He has undergone lumbar instrumentation and fusion previously. This hardware is without migration or failure. No evidence of screw fractures or subsidence. No evidence of pelvic fractures No evidence of rib fractures or shoulder fracture. Patient is range of motion of joints is limited only to pain. She is able to move through full range of motion though. I have advised her to use ice and heat, her Mobic and add Tylenol to her medication regimen. She is to follow-up with primary care and to return here as needed for new concerning or worsening symptoms. Questions sought and answered Discharge Plan Discharge Patient Disposition: Home Clinical Impression: Fall, Back pain, Acute shoulder pain, Back contusion Condition: Stable Prescriptions: No Action metformin 500 mg tablet 500 mg PO BID atorvastatin 40 mg tablet 40 mg PO DAILY@20 pantoprazole 20 mg tablet,delayed release (DR/EC) 20 mg PO DAILY@08 aspirin [Adult Low Dose Aspirin] 81 mg tablet,delayed release (DR/EC) 81 mg PO DAILY@08 Hold Instructions: Resume on 09/25/20. (DME) diabetic shoes-gravity defy See Rx Instructions .Route .MEDSUPPLY Qty: 1 0RF Rx Instructions: As directed [facility] lisinopril 20 mg tablet 20 mg PO DAILY@08 glucosamine sulfate [Glucosamine] 500 mg Tablet 500 mg PO DAILY@08 gabapentin 100 mg capsule 400 mg PO TID ferrous sulfate 325 mg (65 mg iron) tablet 325 mg PO DAILY Qty: 30 3RF Discharge Orders: Discharge ED (Routine); Ordered 08/09/22 Ordered By: Dona Díaz Referrals: Sydnie Gooden MD [Primary Care Provider] - Discharge Diet: Advance as tolerated Discharge Activity: Resume usual activity Patient Instructions: Contusion in Adults (ED), Back Pain (ED), Pain Management Activity Restrictions/Additional Instructions: Please use ice and heat, rest, Mobic and Tylenol to treat your discomfort. Keep in mind that you will likely be sore for the next several days. If you are not better or if you are worsening in the next week you should follow-up with primary care or return here for reevaluation. Coding Level of Care Code ED Engineering Leader for Rafia Anguiano
[2022-08-09 16:16] VITALS: PULSE 77; RESP 16; O2SAT 100
== END 2022-08-09 16:16 | disposition home or self-care (01) ==
PROVIDERS: Emergency Provider Nurse Practitioner; PCP Internal Medicine
DX: S30.0XXA Contusion of lower back and pelvis, initial encounter (principal); W18.2XXA Fall in (into) shower or empty bathtub, initial encounter; Y93.E1 Activity, personal bathing and showering; Y92.002 Bathroom of unspecified non-institutional (private) residence as the place of occurrence of the external cause; M25.511 Pain in right shoulder
CPT/HCPCS: 71046; 72100; 72170; 73030; 99284

== ENCOUNTER 2022-09-17 08:17 | Outpatient (CLI) | payer MEDICARE, OTHER, SELFPAY ==
--- NOTE | 2022-09-17 08:49 | MM_ITS ---
WS: [id number] SCREENING DIGITAL BREAST TOMOSYNTHESIS MAMMOGRAM WITH CAD HISTORY: SCREENING COMPARISON: 06/25/2021, 12/27/2019 and 11/17/2018 Bilateral CC and MLO with tomosynthesis and synthetic mammography submitted. Computer aided detection analyzed. Breast composition: There are scattered areas of fibroglandular density. Millimeter mass LEFT breast at a middle depth. Mass is near the 6:00 axis. This is a well-circumscrib ed mass. Otherwise benign calcifications in each breast. MM/[place] [id number] IMPRESSION: BI-RADS: 0-Incomplete: Need additional imaging evaluation FOLLOW UP: Need Additional Imaging Recommendation: Limited LEFT breast ultrasound, 6:00 axis. Evaluate new 5 mm ma ss.
== END 2022-09-17 08:18 | disposition home or self-care (01) ==
LOC: RAD 08:25
PROVIDERS: PCP Internal Medicine; Visit Provider Internal Medicine
DX: Z12.31 Encounter for screening mammogram for malignant neoplasm of breast (principal)
CPT/HCPCS: 77063; 77067

== ENCOUNTER 2022-10-02 10:41 | Outpatient (CLI) | payer MEDICARE, OTHER, SELFPAY ==
--- NOTE | 2022-10-02 10:53 | US_ITS ---
WS: [id number] ULTRASOUND LEFT BREAST HISTORY: ADDITIONAL VIEWS 6:00 AXIS 5MM MASS COMPARISON: Mammogram 09/17/2022 TECHNIQUE: 2-D and Doppler. Well-circumscribed benign cyst at 6:00, 3 cm from nipple. Cyst measures 5 x 3 x 6 mm and corresponds to the mammographic abnormality. US/US breast LT limited* [id number] IMPRESSION: BI-RADS: 2-Benign FOLLOW-UP: 1 Year Follow-up Return to annual screening mammography.
== END 2022-10-02 10:42 | disposition home or self-care (01) ==
LOC: RAD 10:47
PROVIDERS: PCP Internal Medicine; Visit Provider Internal Medicine
DX: R92.8 Other abnormal and inconclusive findings on diagnostic imaging of breast (principal)
CPT/HCPCS: 76642

== ENCOUNTER 2022-10-25 13:30 | Emergency (ER) | payer MEDICARE, OTHER, SELFPAY ==
[2022-10-25 13:38] VITALS: BP 160/91; PULSE 96; RESP 17; TEMP 36.8; O2SAT 95; BMI 29.9
--- NOTE | 2022-10-25 13:56 | XRR_ITS ---
PROCEDURE INFORMATION: Exam: XR Right Hip Exam date and time: 10/25/2022 2:39 PM Age: 72 years old Clinical indication: Hip pain; Right hip TECHNIQUE: Imaging protocol: Radiologic exam of the right hip. Views: 1 view hip with pelvis when performed. COMPARISON: CR XR pelvis 1-2V* [id number] 08/09/2022 2:57 PM FINDINGS: Bones/joints: Unremarkable. No acute fracture. Metallic orthopedic hardware is seen in the sacrum and right iliac bone. Soft tissues: Unremarkable. XR/XR hip RT 2-3V wo/w pel* [id number] IMPRESSION: No acute right hip bone abnormality. Orthopedic hardware sacrum and right iliac bone
--- NOTE | 2022-10-25 13:56 | XRR_ITS ---
PROCEDURE INFORMATION: Exam: XR Lumbosacral Spine Exam date and time: 10/25/2022 2:39 PM Age: 72 years old Clinical indication: Pain; Other: RT hip; Prior surgery; Surgery date: 6+ months; Additional info: Lumbar radiculopathy TECHNIQUE: Imaging protocol: Radiologic exam of the lumbosacral spine. Views: 2 or 3 views. COMPARISON: CR XR lumbar spine 2-3V* [id number] 08/09/2022 3:01 PM FINDINGS: Bones/joints: Generalized osteopenia and osteoarthritis is seen. No acute fracture. Normal alignment. There is extensive metallic orthopedic hardware posterior aspect of the lumbar spine and sacral spine. Transpedicular screws and rods are in place. Intervertebral hardware is present L4-L5 and L5-S1 interspaces. The distal aspect of the metallic hardware shows screws extending into the right and left iliac bone. Laminectomy defect is seen in the posterior lumbar spine. Soft tissues: Unremarkable. XR/XR lumbar spine 2-3V* [id number] IMPRESSION: 1. Severe osteopenia and osteoarthritis of the lumbar spine. 2. Extensive postsurgical hardware is seen in the posterior aspect of the lumbar spine 3. Laminectomy defect posterior lumbar spine. 4. Negative for acute bony abnormalities
[2022-10-25] MEDS: ketorolac 30 mg/mL INJ IM (14:11)
[2022-10-25] MEDS: predniSONE 20 mg Tablet 60 MG PO (14:11)
[2022-10-25] MEDS: methocarbamol 500 mg Tablet PO (14:11)
--- NOTE | 2022-10-25 14:48 | ED_ITS ---
HPI - Extremity Problem General: Chief complaint: Extremity Problem,Nontraumatic Stated complaint: severe rt leg pain Time Seen by Provider: 10/25/22 13:41 History of Present Illness: 72-year-old female presents emergency department chief complaint of right leg and thigh pain patient reports she was weeding which was bending over when she felt considerable pain running down her right leg patient reports of a known history of chronic back issues including back surgery patient reports no foot drop fracture weakness to the legs she presents to the ER for further assessment and management Associated symptoms: Deny chest pain, fever(s) or rash Review of Systems General: Reports: 10 or more systems reviewed and unremarkable except in HPI and below Const: Denies: fever(s), chills, fatigue or malaise Eyes: Denies: change in vision or blurry vision Card: Denies: chest pain or palpitations Resp: Denies: dyspnea or productive cough GI: Denies: abdominal pain, nausea or vomiting : Denies: flank pain Musc: Reports: extremity pain and limited range of motion Skin/Breast: Denies: rash or pruritus Neuro: Denies: headache(s) Psych: Denies: anxiety or depression Ronak/Lymph: Denies: easy bleeding All/Imm: Denies: urticaria, throat swelling or facial swelling PFSH ED PFSH: Medical History Accelerated essential hypertension Anemia due to blood loss, acute Complication, postoperative infection Diabetes Gastroesophageal reflux High cholesterol History of revision of total replacement of left knee joint Hypertension Sepsis Sinus tachycardia Spinal abscess Surgical History H/O: hysterectomy History of back surgery History of carpal tunnel surgery of left wrist History of carpal tunnel surgery of right wrist History of lumbar surgery History of total left knee replacement History of total right knee replacement Hx of repair of rotator cuff Family History Mother Diabetes Hypertension CAD (coronary artery disease) Grandmother Stroke Social History Smoking and tobacco status: never smoked Alcohol intake: never Substance/Drug Use: never Physical Exam Const: COMMON NORMALS: no acute distress, patient oriented x3 and healthy appearing HENMT: COMMON NORMALS: normocephalic and atraumatic HEAD & SCALP: normocephalic and atraumatic Eye: COMMON NORMALS: Equal, round and reactive pupils present and EOMs intact bilaterally PUPIL: Yes Equal, round and reactive pupils present Neck/C-Spine: COMMON NORMALS: full ROM, supple and no JVD Lymph: LYMPHATIC: no lymphadenopathy noted Chest: COMMONS NORMALS: normal inspection of the chest and normal palpation of entire chest wall Resp: COMMON NORMALS: normal respiratory effort, No retractions and clear to auscultation bilaterally EFFORT & INSPECTION: Yes able to speak in complete sentences and Yes symmetric chest movement AUSCULTATION: clear to auscultation bilaterally Cardio: COMMON NORMALS: no JVD, regular rate and regular rhythm RATE: regular rate RHYTHM: regular rhythm GI: COMMON NORMALS: Normal to inspection, nondistended, normoactive bowel sounds present, Soft to palpation and non-tender INSPECTION: Yes normal to inspection PALPATION: Yes Soft to palpation : COMMON NORMALS: Yes no CVA tenderness BLADDER/KIDNEY EXAM: Yes no CVA tenderness Back/Pelvis: COMMON NORMALS: no CVA tenderness Extremity: NARRATIVE EXTREMITY EXAM: Moderate pain to palpation over the lateral component of the right thigh concerning for a thigh strain reduced range of motion in abduction of the hip due to pain noted moderate pain to palpation over the lateral right of the back with spasm appreciated neurovascularly intact distally Neuro: COMMON NORMALS: patient oriented x3, CN's II-XII intact bilaterally, moves all extremities and no focal motor deficits Psych: COMMON NORMALS: mental status grossly normal, Normal thought process present, cooperative and normal affect THOUGHT PROCESS: Normal thought process present Skin: COMMON NORMALS: no rashes or lesions noted GENERAL SKIN EXAM: no rashes or lesions noted Course Vital Signs: Vital signs: Vital Signs Temperature 98.2 F 10/25/22 13:38 Pulse Rate 96 10/25/22 13:38 Respiratory Rate 17 10/25/22 13:38 Blood Pressure 160/91 10/25/22 13:38 Pulse Oximetry 95 10/25/22 13:38 Oxygen Delivery Me thod Room Air 10/25/22 13:38 MDM - Extremity (Nontraumatic) Medical Decision Making Due to patient's symptoms and condition x-ray imaging of the back of the right hip will be obtained patient provided medications for lumbar strain and hip strain we will continue to follow. Patient is x-ray imaging was read as unremarkable per radiology upon reassessment patient will see if we can walk the patient see if he has any ambulatory issues that she does feel we will prescribe crutches patient was started on some additional occasions for symptoms advised further follow-up with primary care in 3 to 5 days which patient was advised return the interim if any of her symptoms persist or worse Lab Data Radiology Impressions Hip/Pelvis X-Ray 10/25/22 13:56 IMPRESSION: No acute right hip bone abnormality. Orthopedic hardware sacrum and right iliac bone Lumbar Spine X-Ray 10/25/22 13:56 IMPRESSION: 1. Severe osteopenia and osteoarthritis of the lumbar spine. 2. Extensive postsurgical hardware is seen in the posterior aspect of the lumbar spine 3. Laminectomy defect posterior lumbar spine. 4. Negative for acute bony abnormalities Discharge Plan Discharge Patient Disposition: Home Clinical Impression: Strain of right hip Condition: Stable Prescriptions: New tramadol 100 mg tablet 100 mg PO Q8H PRN (Reason: pain) Qty: 14 0RF methocarbamol 500 mg tablet 500 mg PO Q8H PRN (Reason: muscle spasm ) Qty: 20 0RF No Action metformin 500 mg tablet 500 mg PO BID atorvastatin 40 mg tablet 40 mg PO DAILY@20 pantoprazole 20 mg tablet,delayed release (DR/EC) 20 mg PO DAILY@08 aspirin [Adult Low Dose Aspirin] 81 mg tablet,delayed release (DR/EC) 81 mg PO DAILY@08 Hold Instructions: Resume on 09/25/20. (DME) diabetic shoes-gravity defy See Rx Instructions .Route .MEDSUPPLY Qty: 1 0RF Rx Instructions: As directed [facility] lisinopril 20 mg tablet 20 mg PO DAILY@08 glucosamine sulfate [Glucosamine] 500 mg Tablet 500 mg PO DAILY@08 gabapentin 100 mg capsule 400 mg PO TID ferrous sulfate 325 mg (65 mg iron) tablet 325 mg PO DAILY Qty: 30 3RF Discharge Orders: Discharge ED (Routine); Ordered 10/25/22 Ordered By: John Pedro Referrals: Sydnie Gooden MD [Primary Care Provider] - 4-7 days Discharge Diet: Advance as tolerated Discharge Activity: Increase activity as tolerated Patient Instructions: Hip Sprain (ED), Opioid Safety, Pain Management Activity Restrictions/Additional Instructions: Please further follow-up with your primary care doctor in 3 to 5 days please use medication as prescribed and please use covered ice packs to the affected area as needed please return the interim if any of your symptoms persist or worse Coding Level of Care Code ED Processing [employer] Supervisor for Rafia Anguiano
== END 2022-10-25 16:25 | disposition home or self-care (01) ==
PROVIDERS: Emergency Provider Emergency Medicine; PCP Internal Medicine
DX: S76.011A Strain of muscle, fascia and tendon of right hip, initial encounter (principal); Z79.82 Long term (current) use of aspirin; Z79.84 Long term (current) use of oral hypoglycemic drugs; I10 Essential (primary) hypertension; E11.9 Type 2 diabetes mellitus without complications; X50.1XXA Overexertion from prolonged static or awkward postures, initial encounter; Y93.H2 Activity, gardening and landscaping
CPT/HCPCS: 72100; 73502; 96372; 99283; J1885; J7512

== ENCOUNTER 2023-01-28 14:02 | Outpatient (CLI) | payer MEDICARE, OTHER, SELFPAY ==
--- NOTE | 2023-01-28 14:11 | XR_ITS ---
WS: [email or web address] XR chest 2V* [id number] REASON FOR EXAM: ACUTE EXACERBATION OF COPD FINDINGS: The chest is unchanged compared to 08/09/2022. The heart and the mediastinum are within normal limits. Calcified granulomas disease in both hemithoraces. No acute or subacute pulmonary parenchymal or pleural abnormality is identified. Mild to moderate changes of degenerative spondylosis in the mid and lower thoracic spine. IMPRESSION: Stable chest without acute abnormality.
== END 2023-01-28 14:03 | disposition home or self-care (01) ==
PROVIDERS: PCP Internal Medicine; Visit Provider Internal Medicine
DX: J44.1 Chronic obstructive pulmonary disease with (acute) exacerbation (principal)
CPT/HCPCS: 71046

== ENCOUNTER 2023-04-08 09:56 | Outpatient (CLI) | payer MEDICARE, OTHER, SELFPAY | END 2023-04-08 09:57 | disposition home or self-care (01) | LOC: RT 09:57 | PROVIDERS: PCP Internal Medicine; Visit Provider Internal Medicine | DX: J44.9 Chronic obstructive pulmonary disease, unspecified (principal) | CPT/HCPCS: 94010 ==

== ENCOUNTER → 2024-04-10 09:58 | Outpatient (BNVA) | payer MEDICARE, OTHER, SELFPAY | PROVIDERS: PCP Internal Medicine; Visit Provider Nurse Practitioner Family | DX: K52.9 Noninfective gastroenteritis and colitis, unspecified (principal) | CPT/HCPCS: 80053; 85025 ==

== ENCOUNTER → 2024-04-27 09:49 | Outpatient (BNVA) | payer MEDICARE, OTHER, SELFPAY | PROVIDERS: PCP Internal Medicine; Referring Provider Internal Medicine; Visit Provider Nurse Practitioner Family | DX: L82.0 Inflamed seborrheic keratosis (principal); L57.0 Actinic keratosis; D18.01 Hemangioma of skin and subcutaneous tissue; L57.8 Other skin changes due to chronic exposure to nonionizing radiation; L81.4 Other melanin hyperpigmentation; D48.5 Neoplasm of uncertain behavior of skin | CPT/HCPCS: 11102; 17000; 17110; 99203 ==

== ENCOUNTER 2024-05-29 13:37 | Outpatient (CLI) | payer MEDICARE, OTHER, SELFPAY ==
--- NOTE | 2024-05-29 13:46 | XR_ITS ---
WS: [email or web address] Exam: XR thoracic spine 2V [id number] Date/Time of Exam: 05/29/2024 1:49 PM Reason For Exam: LUMBAR BACK PAIN W/RADICULOPATHY Comparison 11/20/2020. No fracture or dislocation. There is spondylosis most prevalent involving the lower T-spine. Degenera tive disc changes at all levels. Increased kyphosis. Normal paraspinal soft tissues. Posterior fusion of T11 and T12. The fusion extends into the lumbar region as described in detail. There is mild dext roscoliosis of the T-spine. XR/XR thoracic spine 2V [id number] IMPRESSION: 1. No fracture or malalignment. Moderate degenerative changes. Mild dextroscoli osis.
--- NOTE | 2024-05-29 13:46 | XR_ITS ---
WS: [email or web address] Exam: XR lumbar spine 2-3V* [id number] Date/Time of Exam: 05/29/2024 1:49 PM Reason For Exam: LUMBAR BACK PAIN W/RADICULOPATHY Comparison 10/25/2022. Posterior spinal fusion extends from S1-T11 with pedicle screws and posterior rods. The fusion remain s in good alignment. No sign of hardware failure. Disc spacers at L4-5 and L5-S1. Screws bridge the b ilateral SI joints. Multilevel laminectomy and laminectomy of the lumbar spine. Mild lumbar levoscoli osis. Degenerative facet changes at all levels. Disc degeneration at all levels. XR/XR lumbar spine 2-3V* [id number] IMPRESSION: 1. Posterior fusion extending from T11-S1. No change or complication has occurr ed since the prior study. 2. Moderately advanced degenerative changes and mild levoscoliosis of lumbar sp ine.
== END 2024-05-29 13:38 | disposition home or self-care (01) ==
PROVIDERS: PCP Internal Medicine; Visit Provider Nurse Practitioner Family
DX: M54.16 Radiculopathy, lumbar region (principal); M51.360 Other intervertebral disc degeneration, lumbar region with discogenic back pain only
CPT/HCPCS: 72070; 72100

== ENCOUNTER 2024-07-06 12:33 | Outpatient (CLI) | payer MEDICARE, OTHER, SELFPAY ==
--- NOTE | 2024-07-06 12:42 | XRR_ITS ---
PROCEDURE INFORMATION: Exam: XR Chest Exam date and time: 07/06/2024 12:56 PM Age: 73 years old Clinical indication: Prior surgery; Surgery date: 6+ months; Surgery type: Spine; Patient HX: Coughing up phlegm xfew weeks; Additional info: [facility], verbal order taken by [facility] TECHNIQUE: Imaging protocol: Radiologic exam of the chest. Views: 2 views. COMPARISON: CR XR chest 2V* [id number] 01/28/2023 2:15 PM FINDINGS: Lungs: The lungs are clear. Pleural spaces: No pneumothorax or pleural effusion. Heart/Mediastinum: Heart size is enlarged. Mediastinal contours unremarkable. Bones/joints: No acute osseous or soft tissue abnormality. XR/XR chest 2V* [id number] IMPRESSION: 1. The lungs are clear. 2. Cardiomegaly.. 3. Partially seen posterior instrumented fusion in the lower thoracic spine without evidence of hardware complication.
[2024-07-06 15:01] LABS: Adenovirus Not Detected (NOT DETECT); Chlamydia Pneumoniae Not Detected (NOT DETECT); Coronavirus 229E,HKU1,NL63,OC4 Not Detected (NOT DETECT); Human Metapneumovirus Not Detected (NOT DETECT); Human Rhinovirus/Enterovirus Not Detected (NOT DETECT); Influenza A Not Detected (NOT DETECT); Influenza A H1 Not Detected (NOT DETECT); Influenza A H1-2009 Not Detected (NOT DETECT); Influenza A H3 Not Detected (NOT DETECT); Influenza B Not Detected (NOT DETECT); Mycoplasma Pneumoniae Not Detected (NOT DETECT); Parainfluenza Virus Type 1 Not Detected (NOT DETECT); Parainfluenza Virus Type 2 Not Detected (NOT DETECT); Parainfluenza Virus Type 3 Not Detected (NOT DETECT); Parainfluenza Virus Type 4 Not Detected (NOT DETECT); Respiratory Syncytial Virus A Not Detected (NOT DETECT); Respiratory Syncytial Virus B Not Detected (NOT DETECT); SARS-COV-2 Not Detected (NOT DETECT)
== END 2024-07-06 12:34 | disposition home or self-care (01) ==
LOC: LAB 12:36
PROVIDERS: PCP Internal Medicine; Visit Provider Nurse Practitioner Family
DX: J06.9 Acute upper respiratory infection, unspecified (principal); I51.7 Cardiomegaly; Z98.1 Arthrodesis status
CPT/HCPCS: 36415; 71046; 87486; 87581; 87633

== ENCOUNTER 2024-09-21 10:24 | Outpatient (CLI) | payer MEDICARE, OTHER, SELFPAY ==
--- NOTE | 2024-09-21 10:20 | MM_ITS ---
WS: [id number] SCREENING DIGITAL BREAST TOMOSYNTHESIS MAMMOGRAM WITH CAD HISTORY: SCREENING COMPARISON: 09/17/2022, 06/25/2021, breast ultrasound 10/02/2022 Bilateral CC and MLO with tomosynthesis and synthetic mammography submitted. Computer aided detection analyzed. Breast composition: There are scattered areas of fibroglandular density. Well- circumscribed mass measures 6 x 4 x 5 mm in the anterior LEFT breast near 6:00. This mass was present on the prior exam but has increased in size slightly. No additional grouping of calcifications or mass. No distortion. MM/MM scr tomosynthesis [id number] IMPRESSION: BI-RADS: 0 - Incomplete: Need additional imaging evaluation. FOLLOW UP: Need Additional Imaging Recommendation: LEFT breast ultrasound, limited near 6:00.
== END 2024-09-21 10:25 | disposition home or self-care (01) ==
PROVIDERS: PCP Internal Medicine; Visit Provider Internal Medicine
DX: Z12.31 Encounter for screening mammogram for malignant neoplasm of breast (principal); R92.323 Mammographic fibroglandular density, bilateral breasts; N63.20 Unspecified lump in the left breast, unspecified quadrant
CPT/HCPCS: 77063; 77067

== ENCOUNTER 2024-10-03 10:20 | Outpatient (CLI) | payer MEDICARE, OTHER, SELFPAY ==
--- NOTE | 2024-10-03 10:25 | MM_ITS ---
WS: [email or web address] ADDITIONAL VIEWS LEFT MAMMOGRAM WITH DIGITAL BREAST TOMOSYNTHESIS. LEFT breast ultrasound, limited. HISTORY: ABNORMAL LEFT BREAST MAMMOGRAM COMPARISON: 09/21/2024, 09/17/2022, 06/25/2021, LEFT breast ultrasound 10/02/2022 Spot compression views LEFT breast in CC, MLO projections and true ML submitted with digital breast tomosynthesis and SM. Breast composition: There are scattered areas of fibroglandular density. Lobulated, ovoid mass measures 5 x 5 x 7 mm in the anterior LEFT breast along the 6:00 axis. Margins are well-circumscribed. No calcification or distortion. LEFT breast ultrasound, limited. Cyst is identified at 6:00, 2 cm from the nipple measuring 7 x 4 x 5 mm. No increased vascularity. This does correspond to the mammographic abnormality. Cyst as slightly increased in size since a prior ultrasound of 10/02/2022. MM/MM diag LT tomosynthesis [id number] IMPRESSION: BI-RADS: 2 - Benign. FOLLOW UP: 1 Year Follow-up LEFT breast cyst has slightly enlarged since 10/02/2022. No solid mass.
== END 2024-10-03 10:21 | disposition home or self-care (01) ==
PROVIDERS: PCP Internal Medicine; Visit Provider Internal Medicine
DX: R92.8 Other abnormal and inconclusive findings on diagnostic imaging of breast (principal); R92.323 Mammographic fibroglandular density, bilateral breasts; N60.02 Solitary cyst of left breast
CPT/HCPCS: 76642; 77061; G0279

== ENCOUNTER → 2024-12-11 13:52 | Outpatient (BNVA) | payer MEDICARE, OTHER, SELFPAY | PROVIDERS: PCP Internal Medicine; Visit Provider Nurse Practitioner Family | DX: L57.8 Other skin changes due to chronic exposure to nonionizing radiation (principal); L81.4 Other melanin hyperpigmentation; L82.1 Other seborrheic keratosis; D22.62 Melanocytic nevi of left upper limb, including shoulder; L82.0 Inflamed seborrheic keratosis; R20.8 Other disturbances of skin sensation; Z78.9 Other specified health status; L29.89 Other pruritus; L53.8 Other specified erythematous conditions; R58 Hemorrhage, not elsewhere classified | CPT/HCPCS: 17110; 99213 ==

== ENCOUNTER 2025-03-20 10:40 | Outpatient (CLI) | payer MEDICARE, OTHER, SELFPAY ==
--- NOTE | 2025-03-20 10:55 | XR_ITS ---
WS: [email or web address] XR shoulder LT min 2V* [id number] REASON FOR EXAM: PAIN IN LEFT SHOULDER FINDINGS: No fracture or focal bone lesion. Significant narrowing of the acromioclavicular joint with moderate subchondral sclerosis and osteophytosis. Lateral downward slant orientation of the acromial process. Glenohumeral joint space is not demonstrated. Likely there is at least moderate narrowing. There is moderate subchondral sclerosis of the glenoid. There is moderate osteophytosis of the humeral head. Moderate sclerosis and cystic change in the greater biceps tuberosity. Calcification in the rotator cuff tendon insertion on the humeral head (HADD). XR/XR shoulder LT min 2V* [id number] IMPRESSION: Moderate to significant osteoarthritis of the acromioclavicular joint with mode rate downward slant orientation of the acromion. Osteoarthritis of uncertain severity in the glenohumeral joint most likely mode rate to significant. Moderate rotator cuff tendon arthropathy and calcific tendinosis as above.
== END 2025-03-20 10:41 | disposition home or self-care (01) ==
LOC: RAD 10:47
PROVIDERS: PCP Internal Medicine; Visit Provider Internal Medicine
DX: M25.512 Pain in left shoulder (principal)
CPT/HCPCS: 73030

== ENCOUNTER → 2025-04-06 12:15 | Outpatient (BNVA) | payer MEDICARE, OTHER, SELFPAY | PROVIDERS: PCP Internal Medicine; Visit Provider Nurse Practitioner | DX: M19.012 Primary osteoarthritis, left shoulder (principal); M75.32 Calcific tendinitis of left shoulder | CPT/HCPCS: 20610; 73030; 99204; J1100; J2795; J3301; J9999 ==

== ENCOUNTER 2025-04-20 10:00 | Outpatient (RCR) | payer MEDICARE, OTHER, SELFPAY | END 2025-04-20 23:59 | disposition home or self-care (01) | LOC: MPT 10:00 | PROVIDERS: PCP Internal Medicine; Visit Provider Internal Medicine | DX: M25.512 Pain in left shoulder (principal) | CPT/HCPCS: 97110; 97140; 97162 ==

== ENCOUNTER 2025-05-01 09:59 | Outpatient (RCR) | payer MEDICARE, OTHER, SELFPAY | END 2025-05-20 23:59 | disposition home or self-care (01) | LOC: MPT 09:59 | PROVIDERS: PCP Internal Medicine; Visit Provider Internal Medicine | DX: M25.512 Pain in left shoulder (principal) | CPT/HCPCS: 97110; 97140 ==

== ENCOUNTER 2025-05-18 10:26 | Outpatient (CLI) | payer MEDICARE, OTHER, SELFPAY ==
--- NOTE | 2025-05-18 10:31 | MRR_ITS ---
PROCEDURE INFORMATION: Exam: MR Left Upper Extremity Joint Without Contrast; Shoulder Exam date and time: 05/18/2025 10:45 AM Age: 74 years old Clinical indication: Prior surgery; Surgery date: 6+ months; Left shoulder pain for 2 months/history of left shoulder surgery; Additional info: Pain in lt shoulder TECHNIQUE: Imaging protocol: Magnetic resonance imaging of the left upper extremity without contrast. Exam focused on the shoulder. 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 Small glenohumeral marginal osteophyte formation.There is mild acromioclavicular osteoarthritis. There is a type 2, curved acromial process. Glenoid labrum: The glenoid labrum is unremarkable. Supraspinatus tendon: Partial-thickness articular surface tear, anterior fibers supraspinatus tendon beginning at the insertion, extending 14 mm in length, series 601, image 13 and measuring 14 mm in AP dimension, series 801 image 17, involving less than 50% of the tendon thickness. Supraspinatus tendinopathy. Infraspinatus tendon: Calcific tendinitis of the infraspinatus tendon with calcium deposition in the tendon at the insertion, series 701, image 8 measuring 9 x 5 x 7 mm. There is infraspinatus tendinopathy. Subscapularis tendon: Partial-thickness articular surface tear, superior half of the subscapularis tendon measuring 4 mm in length, series 501, image 15 and 16 mm in craniocaudal dimension, series 801, image 12, involving less than 50% of the tendon thickness. Teres minor tendon: The teres minor tendon is unremarkable. No evidence of tear. Tendon of biceps brachii: Long bicipital tendon intra-articular tendinopathy. Coracohumeral ligament: The coracohumeral ligament is unremarkable. Glenohumeral ligaments: The glenohumeral ligaments are unremarkable. Soft tissues: There is no significant atrophy of the rotator cuff muscles. The soft tissues are unremarkable. MR/MR shoulder LT wo con* [id number] IMPRESSION: 1. Partial-thickness articular surface tear of the supraspinatus tendon involving less than 50% of the tendon thickness. 2. Calcific tendinitis of the infraspinatus tendon with a 9 x 5 x 7 mm focus of calcium deposition at the insertion. 3. Partial-thickness articular surface tear of the subscapularis tendon involving less than 50% of the tendon thickness. 4. Long bicipital tendon intra-articular tendinopathy.
== END 2025-05-18 10:27 | disposition home or self-care (01) ==
LOC: RAD 10:27
PROVIDERS: PCP Internal Medicine; Visit Provider Internal Medicine
DX: M25.512 Pain in left shoulder (principal); S46.012D Strain of muscle(s) and tendon(s) of the rotator cuff of left shoulder, subsequent encounter; X58.XXXD Exposure to other specified factors, subsequent encounter; M75.32 Calcific tendinitis of left shoulder; M67.88 Other specified disorders of synovium and tendon, other site; M75.22 Bicipital tendinitis, left shoulder
CPT/HCPCS: 73221

== ENCOUNTER → 2025-05-25 13:29 | Outpatient (BNVA) | payer MEDICARE, OTHER, SELFPAY | PROVIDERS: PCP Internal Medicine; Visit Provider Nurse Practitioner | DX: Z01.818 Encounter for other preprocedural examination (principal); Z09 Encounter for follow-up examination after completed treatment for conditions other than malignant neoplasm; M75.32 Calcific tendinitis of left shoulder; M19.012 Primary osteoarthritis, left shoulder | CPT/HCPCS: 36415; 80053; 81001; 85025 ==

== ENCOUNTER 2025-06-12 05:35 | Day surgery (SDC) | payer MEDICARE, OTHER, SELFPAY ==
[2025-06-12] VITALS (11 sets, daily range): BP systolic 129–150; BP diastolic 70–96; PULSE 77–89; RESP 16–17; TEMP 36.1–36.4; O2SAT 91–100; BMI 31.8
--- NOTE | 2025-06-12 06:18 | ANES.PREANE2 ---
Pre-Anesthetic Assessment Height/Weight: Height 5 ft 5 in Preop Diagnosis: Left rotator cuff tear Operation Date: 06/12/25 07:00 Proposed Procedures p Rotator Cuff Repair - Open(Left) - Emelyn Kruger MD s Acromioplasty Shoulder Acromioplasty(Left) - Emelyn Kruger MD s Debridement Upper Extremity Shoulder Debridement(Left) - Emelyn Kruger MD Was Beta Danny taken within 24 hours: N/A Was Clonidine taken within 24 hours: N/A Social No alcohol and No tobacco Exam alert, oriented x 3, clear to auscultation bilaterally and regular rate & rhythm Airway Submandibular: within normal limits Cervical ROM: within normal limits Mallampati: Class III Dentition: full Anesthetic Plan ASA status: 3 Anesthesia: General and Regional (specify below) Other: History of PONV. States she gets nauseous after every surgery but not colonoscopy NPO since yesterday evening History of hypertension on lisinopril Patient takes tirzepatide at baseline, last taken 05/28/2025 Labs reviewed from 05/25/2025 and acceptable for procedure today, electrolytes stable Prior EKG sinus rhythm in preop office Plan for general anesthesia with TIVA and preop block Medications/Allergies Home Medications ?Medication ?Instructions ?Recorded ?Confirmed ?Last Taken ?Type atorvastatin 40 mg tablet 40 mg PO DAILY@12/20/19 06/11/25 06/11/25 08:30 History pantoprazole 20 mg tablet,delayed 20 mg PO DAILY@12/20/19 06/11/25 06/11/25 08:30 History release glucosamine sulfate 500 mg tablet 500 mg PO DAILY@08/26/20 06/11/25 06/11/25 08:30 History (Glucosamine) lisinopril 20 mg tablet 20 mg PO DAILY@08/26/20 06/11/25 06/11/25 08:30 History gabapentin 100 mg capsule 400 mg PO TID 04/01/21 06/11/25 06/11/25 08:30 History diabetic shoes-gravity defy #1 ea 05/06/22 05/25/25 Unknown Rx tirzepatide 5 mg/0.5 mL 5 mg SUBCUT .WEEKLY 04/06/25 06/12/25 05/28/25 08:00 History subcutaneous pen injector (Leo) duloxetine 30 mg capsule,delayed 30 mg PO DAILY 06/12/25 06/12/25 06/11/25 History release meloxicam 7.5 mg tablet 7.5 mg PO DAILY 06/12/25 06/12/25 05/28/25 History tramadol 50 mg tablet 50 mg PO Q8H PRN Pain 06/12/25 06/12/25 Unknown History Allergies Allergy/AdvReac Type Severity Reaction Status Date / Time hydrocodone Allergy ADR-Vomitin Verified 06/11/25 12:41 g PFSH Anesthesia Medical History Rotator cuff tear arthropathy of left shoulder 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, left shoulder Spinal abscess Sepsis Complication, postoperative infection Hypertension Sinus tachycardia Anemia due to blood loss, acute History of revision of total replacement of left knee joint Diabetes Accelerated essential hypertension High cholesterol Gastroesophageal reflux Surgical History History of lumbar surgery History of total right knee replacement History of total left knee replacement Hx of repair of rotator cuff History of carpal tunnel surgery of left wrist History of carpal tunnel surgery of right wrist H/O: hysterectomy History of back surgery Family History Mother Diabetes Hypertension CAD (coronary artery disease) Grandmother Stroke Social History Smoking and tobacco/nicotine status: never used tobacco/nicotine Alcohol intake: never Substance/Drug Use: never Data Anesthesia Cardiac Studies: Echocardiogram Ultrasound 11/28/20
[2025-06-12] MEDS: acetaminophen 1,000 MG/100 ML PIGGYBACK 400 MG IV (06:40)
--- NOTE | 2025-06-12 06:51 | SUR.PREOP ---
0649-time out completed at bedside for interscalene blcok using 30ml 0.5% bupivicaine
--- NOTE | 2025-06-12 07:07 | W.PM.OPSUD ---
Surgery/Procedure H&P Update DATE OF PROCEDURE: June 12, 2025 DATE H&P PERFORMED: 05/25/25 H&P UPDATE INFORMATION: I have reviewed H&P completed within last 30 days, I have examined patient prior to procedure, No changes to prior documentation, Changes to prior documentation as noted here and Risks and benefits of the procedure reviewed CHANGES TO PREVIOUS DOCUMENTATION: Refer to 06/07/25 Preop eval for heart and lung and medical evaluation PREOP DIAGNOSIS: Left rotator cuff tear with impingement PLANNED PROCEDURE: Operation Date: 06/12/25 07:00 Proposed Procedures p Rotator Cuff Repair - Open(Left) - Emelyn Kruger MD s Acromioplasty Shoulder Acromioplasty(Left) - Emelyn Kruger MD s Debridement Upper Extremity Shoulder Debridement(Left) - Emelyn Kruger MD Related Problem List Diagnoses 1. Rotator cuff tear arthropathy of left shoulder: 2. Calcific tendonitis of left shoulder: 3. Impingement of left shoulder:
[2025-06-12] MEDS: ceFAZolin 2,000 mg SDV 2000 MG IVP (07:11)
--- NOTE | 2025-06-12 07:41 | ANES.PROC ---
Anesthesia Procedures Procedure/Date: 06/12/25 Left interscalene peripheral nerve block for postoperative pain control Nerve Block ^: Nerve Block 1: Main Anesthesia: other (100 mcg fentanyl) Time Out Performed: Yes Consent: requested by attending/covering physician and from patient Laterality: Left Nerve block location: interscalene Anesthesia monitors applied: pulse oximetry, EKG, BP cuff and oxygen Nerve block position: supine Anesthetic Used: ropivicaine 0.5% Amount of anesthesia used (mL): 30 Ultrasound used to: recognize landmarks Nerve Stimulator Used?: Yes Interscalene/Femoral BLK: other needle (pjunk 4inch) Injection: neg aspiration of heme Patient Tolerated Procedure: well Complications: none Additional Comments: Decadron 4 mg added to block
[2025-06-12] MEDS: ceFAZolin 1,000 mg SDV 1000 MG IRRIGATION (07:58)
--- NOTE | 2025-06-12 09:26 | P.OP_ITS ---
Operative Report Date of procedure: June 12, 2025 Pre-op diagnosis: Left shoulder impingement with probable rotator cuff tear, acromioclavicular joint osteoarthritis, and calcific tendinitis Post-op diagnosis: Left shoulder impingement with severe bursitis, but no evidence of rotator cuff tear, acromioclavicular joint osteoarthritis, and calcific tendinitis Prior coracoacromial ligament reconstruction with retained suture Post-op findings: Patient had evidence of prior coracoacromial ligament reconstruction, and sutures were remaining. There was severe degenerative osteoarthritis within the acromioclavicular joint as well as severe impingement. There was significant bursitis, but no absolute rotator cuff tear. There was also calcific tendinitis which was excised Procedure done: Left shoulder acromioplasty, distal clavicle resection, resection of calcific bursitis, and subacromial bursal debridement Implants: None Specimens removed/disposition: None Pathology: None Surgeon: Emelyn Kruger MD Denture Processor: [facility] operating room technicians Anesthesia: General (Intubated with preoperative interscalene block, ASA 3) Estimated blood loss (mL): 30 IV fluids (mL): 1,000 Urine output (mL): 0 (No Kelly) Complications: None Findings: As outlined above Condition: stable Disposition: PACU (Then return to same-day surgery for discharge to home) Brief History: Patient presents today for acromioplasty and evaluation of rotator cuff with distal clavicle resection. She has prior diagnoses as listed below. She was unresponsive to cortisone injections to the shoulder. MRI demonstrated calcific tendinitis as well as rotator cuff arthropathy with partial tears involving less than 50% of the tendon. As the patient was quite painful and having difficulties with her activities of daily living, she was not interested in further cortisone injections. Discussion was then undertaken regarding surgical intervention with open rotator cuff repair if there were a tear that required repair, acromioplasty with distal clavicle resection and also resection of calcific bursitis. Risks and complications of the surgery were discussed with her. Consents were signed preoperatively, and the patient was given opportunity the morning of surgery for further questions to be answered. Procedure: The patient was brought to the operating theater and underwent general intubated anesthesia, ASA 3, with preoperative supplemental interscalene block, which was well-tolerated. The patient was placed in a beachchair position and subsequently the left upper extremity was prepped and draped in the usual fashion utilizing DuraPrep. The arm was draped free. A surgical pause was performed prior to commencement of the surgical procedure. At the time of the surgical pause, we confirmed the site and side of surgery as well as administration of appropriate preoperative antibiotics, Ancef 2 g. MRI was also reviewed at that time. Following the surgical pause, an incision was made at approximately the level of the acromioclavicular joint extending across the anterolateral corner of the acromion and distally as necessary. Care was taken to avoid injury to the axillary nerve by limiting the distal extent of the incision. The patient had a previous incision which was a strap type incision distal to the area that would be covered by today's incision. This was well-healed with no evidence of infection. Dissection continued through skin and soft tissues using a scalpel. Hemostasis was obtained using electrocautery. Upon entry into the deltoid overlying the acromion, there was noted to be evidence of prior Ethibond suture and what appeared to be a Prolene. These were in the area that would be consistent with prior cortical acromial ligament reconstruction. The ligament was not present, but there was soft tissue and scarring that needed to be debrided. The Ethibond was removed as well as any other remaining suture in this area. Soft tissues were elevated off the acromion and the acromioclavicular joint following removal of the suture. The acromioclavicular joint was exposed as well as the anterior lateral border of the acromion into the subacromial space. There was noted to be significant bursitis in the subacromial area. Soft tissues were elevated slightly more posterior to address the known calcific bursitis. After exposure of the subacromial space as well as the acromioclavicular joint, A saw was used to resect the distal clavicle without difficulty. The undersurface of the clavicle was palpated and was slightly further debrided. Superior surface of the clavicle was also debrided. A power rasp was used to further smooth the area. When this was felt to be adequately resected, the wound was irrigated. Osteophytes were also removed from the acromial side of the acromioclavicular joint. An acromioplasty was then accomplished using a combination of a saw and a power rasp. With this, we were able to remove compression caused by the acromion. Impingement was significantly improved following acromioplasty. Significant bursectomy was accomplished as this was quite thickened and erythematous. Following resection of the bursa, the rotator cuff was visually inspected as well as palpated. There were areas of the rotator cuff that was thinned, but there was no evidence of through and through tear. This was true throughout the rotator cuff, and was consistent with MRI findings. After the acromioplasty had been performed, the calcific bursitis was palpable and this was removed with some difficulty secondary to being buried in the tendinous structures. Following removal of the calcific bursitis, the acromion was palpated once again and no further areas of impingement were identified. The patient was placed through range of motion. There was no further impingement, and no further evidence of pathology. The wound was copiously irrigated. Closure was accomplished with 0 Vicryl in the capsular tissues overlying the acromioclavicular joint area as well as over the acromion and down into the deltoid muscle. 2-0 Monocryl was used to close the subcutaneous tissues followed by 4-0 Monocryl subcuticular closure. This was followed by Dermabond, Steri-Strips, and OpSite. An ABD was placed in the axilla. The patient was placed in a shoulder sling and was returned to the recovery room in satisfactory condition. The patient will be discharged to home to follow-up in office as scheduled. There were no complications and no specimens. Related Problem List Diagnoses 1. Impingement of left shoulder: 2. Osteoarthritis of left acromioclavicular joint: 3. Calcific tendonitis of left shoulder: 4. Bursitis of left shoulder:
== END 2025-06-12 10:25 | disposition home or self-care (01) ==
PROVIDERS: PCP Internal Medicine; Visit Provider Specialist
PROC: (CPT 23130; principal; 2025-06-12 07:00)
PROC: (CPT 23130; 2025-06-12 07:00)
PROC: (CPT 23130; 2025-06-12 07:00)
DX: M75.42 Impingement syndrome of left shoulder (principal); M19.012 Primary osteoarthritis, left shoulder; M71.9 Bursopathy, unspecified; M75.32 Calcific tendinitis of left shoulder; I10 Essential (primary) hypertension; R00.0 Tachycardia, unspecified; E11.9 Type 2 diabetes mellitus without complications; K21.9 Gastro-esophageal reflux disease without esophagitis
CPT/HCPCS: 23130; 23120; 64415; 36416; 82962; J0131; J0690; J1100; J2250; J2371; J2405; J2704; J3010; J3490; J7030; J9999